=== PATIENT | female | born 1945 | race Caucasian/White ===

== ENCOUNTER → 2019-06-12 15:14 | Outpatient (CLI) | payer MEDICARE, OTHER, SELFPAY ==
--- NOTE | 2019-06-12 15:23 | RAD_ITS ---
STUDY: X-RAY CHEST REASON FOR EXAM: Female, 73 years old. ASTHMA, COUGH TECHNIQUE: PA and lateral views of the chest. COMPARISON: None. FINDINGS: The lungs are clear and expanded. There is no demonstrated pleural abnormality. Normal size heart. Normal mediastinum and rojas. Normal visualized pulmonary arteries. There is atherosclerotic calcification of the aortic arch with tortuosity. Normal visualized thoracic spine. Normal visualized ribs, clavicles, and shoulders. There is no demonstrated abnormality of the visualized soft tissue structures of the upper abdomen. RAD/Chest PA and Lateral IMPRESSION: No acute cardiopulmonary disease. Electronically Signed: Helene Wilcox MD at 2:12 EST , Service support ,
[2019-06-12 17:32] LABS: Erythrocyte Sedimentation Rate 29 mm/hr (0-30)
== END ==
PROVIDERS: Family Provider Student in an Organized Health Care Education/Training Program; PCP Student in an Organized Health Care Education/Training Program; Referring Provider Internal Medicine Pulmonary Disease; Visit Provider Internal Medicine Pulmonary Disease
DX: J45.909 Unspecified asthma, uncomplicated (principal)
CPT/HCPCS: 36415; 71046; 85652

== ENCOUNTER 2020-08-30 09:14 | Outpatient (RCR) | payer MEDICARE, OTHER, SELFPAY ==
[2020-08-30] MEDS: COVID-19 VACC, MRNA(PFIZER)/PF 30 MCG/0.3 ML SYRINGE IM (16:24)
[2020-09-20] MEDS: COVID-19 VACC, MRNA(PFIZER)/PF 30 MCG/0.3 ML SYRINGE IM (16:02)
== END 2020-11-29 23:59 ==
LOC: IMMUN 09:14
PROVIDERS: PCP Student in an Organized Health Care Education/Training Program; Referring Provider Family Medicine; Visit Provider Family Medicine
DX: Z23 Encounter for immunization (principal)
CPT/HCPCS: 0001A; 0002A; 91300

== ENCOUNTER 2021-06-21 14:09 | Emergency (ER) | payer MEDICARE, OTHER, SELFPAY ==
[2021-06-21 14:10] VITALS: BP 130/93; PULSE 73; RESP 18; TEMP 35.9; O2SAT 96; BMI 26.5
--- NOTE | 2021-06-21 16:22 | VDLE_ITS ---
Reason For Study: Pain Procedure LEFT This is a venous duplex using B-mode, color GSV is normal. flow and spectral Doppler. CFV is compressible, spontaneous, phasic, Exam performed portable in ED. competent, and demonstrates normal A preliminary report was called and/or faxed augmentation. to [facility]. FV is compressible, spontaneous, phasic, competent and demonstrates normal augmentation. POP V is compressible, spontaneous, phasic, competent and demonstrates normal augmentation. T/P Trunk is compressible. PTV is compressible. LT PerV is compressible. VL/Venous Duplex US, Unilateral Interpretation Summary There is no evidence of left lower extremity deep vein thrombosis. Left great s aphenous vein appears patent and compressible segmentally. Ordering Physician: David Toribio Referring Physician: Ollie Colin Performed By: Nneka Martino RVT
--- NOTE | 2021-06-21 16:44 | ED.VIS.LOWEX ---
HPI History of Present Illness HPI Narrative: Patient presents with pain in her left lower leg that has been getting worse over the past 2 days. Patient states she is concerned that there could be a blood clot in her leg. Patient denies any trauma or injury. Patient does admit to some increased swelling in her left lower leg. Patient states her pain is sharp at times. Patient denies any radiation of the pain. Patient denies any paresthesias or weakness. Chief Complaint: Lower Extremity Injury Informant: patient Onset/Context/Timing Onset: Days (2) Context: Gradual Onset Timing: Continuous Quality of Pain: Sharp Location: Left anterior proximal lower leg Worsened by: Palpation Relieved by: Nothing Associated Symptoms Associated Symptoms: Negative for Parasthesia, Weakness and Loss of Funtion PFSH PFSH Medical History Asthma Depression Former smoker Hyperlipemia Hypertension Kidney stones Home Medications Lactobacillus acidophilus [Acidophilus] 2 cap PO TID 06/21/21 [History Last Taken Unknown] amlodipine 5 mg PO DAILY 06/21/21 [History Last Taken Unknown] azelastine 137 mcg INTRANASAL BID 06/21/21 [History Last Taken Unknown] bupropion HCl 150 mg PO DAILY 06/21/21 [History Last Taken Unknown] fenofibrate 160 mg PO DAILY 06/21/21 [History Last Taken Unknown] hydroxychloroquine 300 mg PO DAILY 06/21/21 [History Last Taken Unknown] metoprolol succinate 25 mg PO DAILY 06/21/21 [History Last Taken Unknown] omeprazole 40 mg PO DAILY 06/21/21 [History Last Taken Unknown] prednisone 5 mg PO DAILY 06/21/21 [History Last Taken Unknown] Allergy/AdvReac Type Severity Reaction Status Date / Time No Known Allergies Allergy Verified 06/21/21 14:13 Surgical History H/O bilateral hip replacements Social History Smoking Status: Former smoker ROS ROS ED Constitutional Constitutional ED: Denies chills or fever(s) Eyes Eyes: Denies blurry vision or change in vision ENT ENT ED: Denies rhinorrhea or sore throat Cardiovascular Cardiovascular: Denies chest pain or palpitations Respiratory/Chest Respiratory/Chest: Denies cough or dyspnea Gastrointestinal Gastrointestinal: Denies nausea or vomiting Genitourinary Genitourinary ED: Denies dysuria or hematuria Musculoskeletal Musculoskeletal: Denies back pain or neck pain Integumentary Denies abscess or rash Neurologic Neurologic: Denies headache(s) or weakness Allergic/Immunologic Allergic/Immunologic ED: Denies mouth swelling or urticaria EXAM Physical Exam Const Vital Signs: 06/21/21 14:10 Temperature 96.7 F L Temperature Source Temporal Pulse Rate 73 Respiratory Rate 18 Blood Pressure 130/93 H Blood Pressure Mean 105 Pulse Ox 96 Oxygen Delivery Method Room Air Positive well nourished and well developed General Appearance ED: well developed HEENT Reports moist mucous membranes Neck full ROM Extremity Extremity Narrative: There is tenderness over the anterior aspect of the left proximal lower leg. There is some mild edema. There is no ecchymosis. There is no erythema. There is no warmth. There is minimal calf tenderness. There is no pain with dorsiflexion of the left ankle. There is no bony crepitance or step-off. There is good range of motion. Pedal pulses are equal bilateral. Capillary refill was less than 2 seconds in all digits. Sensation was intact to light touch in all digits. Neuro CN's II-XII intact bilaterally, moves all extremities and no sensory deficits noted Sensorium / Orientation: alert Motor Exam: strength 5/5 throughout Psych mental status grossly normal MDM MDM MDM Narrative Medical decision making narrative: Venous duplex of the left lower extremity was obtained and was negative. Patient was advised of her findings. Patient was instructed to ice and elevate her left lower leg. Patient was instructed to follow-up with her primary care physician in 5 to 7 days. Patient was instructed to take Tylenol or ibuprofen as needed for pain. Patient understands and is agreeable with the plan. All questions were answered. Discharge Plan Triage Chief Complaint: Lower Extremity Injury ED Provider: David Toribio Dx/Rx/DC Orders Clinical Impression: Left leg pain Instructions: ED Pain, Acute, Uncertain Cause Prescriptions: No Action prednisone 10 mg tablet 5 mg PO DAILY RF: 0 amlodipine 5 mg tablet 5 mg PO DAILY RF: 0 omeprazole 40 mg capsule,delayed release(DR/EC) 40 mg PO DAILY RF: 0 metoprolol succinate 25 mg tablet extended release 24 hr 25 mg PO DAILY RF: 0 azelastine 137 mcg (0.1 %) aerosol,spray 137 mcg INTRANASAL BID RF: 0 hydroxychloroquine 200 mg tablet 300 mg PO DAILY RF: 0 Acidophilus Capsule 2 cap PO TID RF: 0 bupropion HCl 150 mg tablet extended release 24 hr 150 mg PO DAILY RF: 0 fenofibrate 160 mg tablet 160 mg PO DAILY RF: 0 Primary Care Provider: Ollie Colin Referrals: lOlie Colin DO [Primary Care Provider] - 5-7 Days Disposition Disposition: Home, Self Care
[2021-06-21 17:27] VITALS: BP 131/74; PULSE 82; RESP 15; O2SAT 98
== END 2021-06-21 17:28 | disposition home or self-care (01) ==
LOC: ED 17:16
PROVIDERS: Emergency Provider Emergency Medicine; PCP Student in an Organized Health Care Education/Training Program
DX: M79.662 Pain in left lower leg (principal); M79.89 Other specified soft tissue disorders; I10 Essential (primary) hypertension; E78.5 Hyperlipidemia, unspecified; J45.909 Unspecified asthma, uncomplicated; F32.A Depression, unspecified; Z79.52 Long term (current) use of systemic steroids; Z79.899 Other long term (current) drug therapy; Z87.891 Personal history of nicotine dependence
CPT/HCPCS: 93971; 99282

== ENCOUNTER → 2021-12-13 | Outpatient (CLI) | payer MEDICARE, OTHER, SELFPAY ==
[2021-12-13] MEDS: Methacholine Chloride 18 ml neb kit INHALATION (13:09)
--- NOTE | 2021-12-14 05:21 | BRONCHALL ---
Bronchoprovocation Challenge Bronchoprovocation Challenge Bronchoprovocation Challenge: BRONCHOPROVOCATION STUDY INTERPRETATION Brief HPI: Patient is a 76 year old female, currently under the care of Dr. Guillaume, who presents to [facility] for a bronchoprovocation study secondary to diagnosis of chronic cough. Respiratory therapist reports good effort and reproducible results. Interpretation: Initial spirometry showed no large airways obstructive ventilatory defect. The patient was then given increasingly concentrated doses of methacholine in a stepwise/standardized fashion, using a modified ATS protocol. The patient?s maximum reduction in FEV1 was 16 percent predicted. Impression: Negative Bronchoprovocation study. This is NOT consistent with the diagnosis of asthma.
== END | disposition home or self-care (01) ==
PROVIDERS: PCP Student in an Organized Health Care Education/Training Program
DX: R05.3 Chronic cough (principal)
CPT/HCPCS: 94070; 95070

== ENCOUNTER 2021-12-24 20:21 | Emergency (ER) | payer MEDICARE, OTHER, SELFPAY ==
[2021-12-24 20:21] VITALS: BP 143/75; PULSE 69; RESP 16; TEMP 36.2; O2SAT 98; BMI 24.4
--- NOTE | 2021-12-24 20:45 | EDS_ITS ---
HPI HPI - Fall History of Present Illness Chief Complaint: Fall Narrative Narrative: Patient was at a wedding. She caught her left great toe on an uneven surface causing her to trip and fall. She landed on outstretched hand. She has a little bit of pain in the right hand near the small finger. She has some abrasions on the toes and shins. She also hit her face/nose. She does not think she lost consciousness. If she did it was for a very brief time. But she does feel somewhat dizzy. No headache. She has had nosebleed that was on the right but has stopped it still oozing a little on the left but getting better. No back or neck pain. No numbness tingling. No trouble breathing. She is not on any anticoagulation including no aspirin. [facility] Medical History Asthma Depression Former smoker Hyperlipemia Hypertension Kidney stones Home Medications Lactobacillus acidophilus (Acidophilus) 2 cap PO TID 06/21/21 [History Last Taken Unknown] amlodipine 5 mg tablet 5 mg PO DAILY 06/21/21 [History Last Taken Unknown] azelastine 137 mcg (0.1 %) nasal spray aerosol 137 mcg intranasal BID 06/21/21 [History Last Taken Unknown] bupropion HCl 150 mg 24 hr tablet, extended release (Wellbutrin XL) 150 mg PO DAILY 06/21/21 [History Last Taken Unknown] fenofibrate 160 mg tablet 160 mg PO DAILY 06/21/21 [History Last Taken Unknown] hydroxychloroquine 200 mg tablet (Plaquenil) 300 mg PO DAILY 06/21/21 [History Last Taken Unknown] metoprolol succinate 25 mg tablet,extended release 24 hr 25 mg PO DAILY 06/21/21 [History Last Taken Unknown] omeprazole 40 mg capsule,delayed release 40 mg PO DAILY 06/21/21 [History Last Taken Unknown] prednisone 10 mg tablet 5 mg PO DAILY 06/21/21 [History Last Taken Unknown] Allergy/AdvReac Type Severity Reaction Status Date / Time No Known Allergies Allergy Verified 12/24/21 20:21 Surgical History H/O bilateral hip replacements Social History Smoking Status: Former smoker ROS ROS ED Constitutional Constitutional ED: Denies fever(s) Eyes Eyes: Denies change in vision ENT ENT ED: Reports other Details: Epistaxis and nasal injury see history of present illness. Cardiovascular Cardiovascular: Denies chest pain, palpitations or racing heartbeat Respiratory/Chest Respiratory/Chest: Denies cough or dyspnea Gastrointestinal Gastrointestinal: Denies nausea or vomiting Musculoskeletal Musculoskeletal: Reports other Details: Right hand pain. ; Denies back pain or neck pain Integumentary Reports Abrasions Neurologic Neurologic: Denies headache(s), paresthesias or weakness Psychiatric Psychiatric: Reports depression Allergic/Immunologic Allergic/Immunologic ED: Denies urticaria EXAM Physical Exam Const Vital Signs: 12/24/21 20:21 12/24/21 20:32 Temperature 97.1 F L Temperature Source Temporal Pulse Rate 69 Respiratory Rate 16 Respiratory Effort Normal Non-Labored Respiratory Depth Normal Respiratory Pattern Normal Blood Pressure 143/75 H Blood Pressure Mean 97 Pulse Ox 98 Oxygen Delivery Method Room Air Room Air Positive well nourished and well developed Constitutional Narrative: Patient awake and alert. General Appearance ED: well developed and NAD HEENT HEENT Narrative: Patient has contusion and abrasion to the bridge of the nose. There may be some very subtle deformity or this could be from swelling. Dried blood in the right nare. Tissue in the left currently. No active bleeding. No facial or scalp tenderness. Eyes EOMs intact bilaterally Neck full ROM Neck Narrative: No tenderness or pain with motion. Chest Wall inspection of chest normal and palpation of chest normal Resp normal respiratory effort and clear to auscultation bilaterally Resp Narrative: No pain with deep breath Cardio regular rate and regular rhythm GI non-tender and non-distended Back/Spine no CVA tenderness Cervical Spine: Negative for cervical spine tenderness Thoracic Spine / Upper Back: Negative for thoracic spinal tenderness Lumbar Spine / Lower Back: Negative for lumbar spinal tenderness Neuro oriented x3 Psych mental status grossly normal Skin Skin Narrative: Multiple abrasions foot, shins medial aspect of right hand. Slight abrasion to bridge of nose. No laceration seen. MDM MDM MDM Narrative Medical decision making narrative: CT of the patient's head and face are normal.'s x-ray of the hand is normal. I have rechecked her. Nose is stopped bleeding. There is no septal hematoma. There are some abrasions around the lips. Her teeth meet normally. No new changes. Her left great toe has the nail that is really lifted off the base. It is still attached mid and anteriorly but it is really torn from the matrix area. However, I would prefer not to remove this. This will come off on its own. We will wrap this and get her home. We discussed if she develops new symptoms pain or anything different she should return. Radiography Diagnostic Testing: Clinical Impression(s) from Imaging Studies Brain CT 12/24/21 20:53 IMPRESSION: Normal unenhanced CT scan of the brain. Electronically Signed: Justus Shultz DO at 21:31 EDT Reading Location ID and State: [facility] [employer] Tel [phone], Service support , Facial/Sinus 12/24/21 20:53 IMPRESSION: No evidence of facial bone fracture. Electronically Signed: Justus Shultz DO at 21:32 EDT Reading Location ID and State: [facility] [employer] Tel [phone], Service support , Hand X-Ray 12/24/21 20:55 IMPRESSION: Degenerative changes of the hand and wrist. There is no acute fracture or dislocation. Electronically Signed: Justus Shultz DO at 21:33 EDT Reading Location ID and State: [facility] [employer] Tel [phone], Service support , Discharge Plan Triage Chief Complaint: Fall ED Provider: Raheem Salguero Dx/Rx/DC Orders Clinical Impression: Fall from slip, trip, or stumble, Epistaxis due to trauma, Contusion of nose, Contusion of hand, right, Abrasions of multiple sites Instructions: ED Head Injury (Adult) Prescriptions: No Action prednisone 10 mg tablet 5 mg PO DAILY amlodipine 5 mg tablet 5 mg PO DAILY omeprazole 40 mg capsule,delayed release(DR/EC) 40 mg PO DAILY metoprolol succinate 25 mg tablet extended release 24 hr 25 mg PO DAILY azelastine 137 mcg (0.1 %) aerosol,spray 137 mcg INTRANASAL BID hydroxychloroquine [Plaquenil] 200 mg tablet 300 mg PO DAILY Acidophilus Capsule 2 cap PO TID bupropion HCl [Wellbutrin XL] 150 mg tablet extended release 24 hr 150 mg PO DAILY fenofibrate 160 mg tablet 160 mg PO DAILY Primary Care Provider: Ollie Colin Referrals: Ollie Colin DO [Primary Care Provider] - 3-5 Days Disposition Disposition: Home, Self Care
--- NOTE | 2021-12-24 20:53 | CT_ITS ---
STUDY: CT FACIAL BONES WITHOUT CONTRAST REASON FOR EXAM: Female, 76 years old. Trauma. RADIATION DOSAGE (If Supplied By Facility): CTDIvol = ( 25.01 ) mGy, DLP = ( 542.40 ) mGycm TECHNIQUE: The patient was scanned in a multi detector CT scanner. Sagittal and coronal images were reconstructed. Individualized dose optimization techniques were used for this CT. COMPARISON: CT of the head, 12/24/2021 FINDINGS: Minimal soft tissue swelling over the bridge of nose. Normal orbital sanchez and orbital contents. Normal nasal bones and anterior nasal spine. Normal facial bones. There is no demonstrated fracture. Normal visualized paranasal sinuses. CT/Sinus/Facial Bone IMPRESSION: No evidence of facial bone fracture. Electronically Signed: Justus Shultz DO at 21:32 EDT ,
--- NOTE | 2021-12-24 20:53 | CT_ITS ---
STUDY: CT BRAIN WITHOUT CONTRAST REASON FOR EXAM: Female, 76 years old. Trauma. RADIATION DOSAGE (If Supplied By Facility): CTDIvol = ( 47.06 ) mGy, DLP = ( 872.68 ) mGycm TECHNIQUE: Transaxial CT imaging of the brain was performed without administration of intravenous contrast material. Individualized dose optimization techniques were used for this CT. COMPARISON: FINDINGS: Normal soft tissue structures. Normal calvarium. Normal size ventricles and extra-axial spaces for the patient''s age. Normal white matter tracts of the cerebral hemispheres. Normal basal ganglia and thalami. Normal brainstem. Normal cerebellum. There is no intracranial hemorrhage. There are no findings of an acute ischemic infarction. Normal visualized paranasal sinuses. CT/Brain/Head without Contrast IMPRESSION: Normal unenhanced CT scan of the brain. Electronically Signed: Justus Shultz DO at 21:31 EDT ,
--- NOTE | 2021-12-24 20:55 | RAD_ITS ---
STUDY: X-RAY - RIGHT HAND REASON FOR EXAM: Female, 76 years old. Fall. Pain in the region of the fourth and fifth fingers. TECHNIQUE: 3 view(s) of the hand. COMPARISON: None. FINDINGS: There is joint space narrowing of the radiocarpal articulation consistent with degenerative arthrosis. Normal distal radioulnar joint. Normal visualized carpal bones. There is degenerative joint disease of the scaphotrapezium / trapezoid articulation. The remainder of the carpal articulations are normal. There is degenerative arthrosis of the carpometacarpal (CMC) articulation of the thumb. Normal second through fifth carpometacarpal joints. Normal metacarpi. Normal metacarpophalangeal joint of the thumb. There is degenerative arthrosis of the interphalangeal joint of the thumb with articular joint space narrowing. Normal proximal and distal phalanges of the thumb. Normal metacarpophalangeal joints of the second through fifth fingers. There is diffuse articular joint space narrowing of the proximal and distal interphalangeal joints of the second through fifth fingers, but without erosive changes or periarticular soft tissue swelling. Normal phalanges of the second through fifth fingers. The soft tissue structures are unremarkable. RAD/Hand Min 3 Views IMPRESSION: Degenerative changes of the hand and wrist. There is no acute fracture or dislocation. Electronically Signed: Justus Shultz DO at 21:33 EDT Reading Location ID and State: [facility] Tel [phone], Service support ,
[2021-12-24 22:26] VITALS: BP 142/68; PULSE 69; RESP 18
== END 2021-12-24 22:27 | disposition home or self-care (01) ==
PROVIDERS: Emergency Provider Emergency Medicine; PCP Student in an Organized Health Care Education/Training Program; Visit Provider Emergency Medicine
DX: S00.33XA Contusion of nose, initial encounter (principal); R04.0 Epistaxis; S00.511A Abrasion of lip, initial encounter; S91.202A Unspecified open wound of left great toe with damage to nail, initial encounter; S60.221A Contusion of right hand, initial encounter; S80.812A Abrasion, left lower leg, initial encounter; S80.811A Abrasion, right lower leg, initial encounter; W18.09XA Striking against other object with subsequent fall, initial encounter; I10 Essential (primary) hypertension; E78.5 Hyperlipidemia, unspecified; Z87.891 Personal history of nicotine dependence; Z96.643 Presence of artificial hip joint, bilateral
CPT/HCPCS: 70450; 70486; 73130; 99282

== ENCOUNTER 2022-03-30 12:30 | Outpatient (RCR) | payer MEDICARE, OTHER, SELFPAY ==
--- NOTE | 2022-03-02 15:20 | HP.PTEVAL_ITS ---
Patient's Visit Information LIYA BRITT is a 76 year old F referred to Physical Therapy by LUCIAN Mendez with a diagnosis of spondylosis, stenosis lumbosacral area,. Date of Evaluation: 03/02/22 Physical Therapist: David Palmer, LAURIET, OCS, CSCS - Visit Plan Frequency: 3x /Week Duration: 4-6 Weeks Plan: 3x/week for 4-6... Ensure knowledge of NS position in daily activities. Start withrollout and stretch quad and psoas and proress to HEP. start mat based core strength adn proress to I HEP focussing on NS position. work to gym b ased general ex program with NS emphasis and progress to I with list(pt is already a member but does not know what to do) - Subjective My back hurts. Not sure why. has OA and RA. Been on prednisone for 3 rounds in last 3 months since RA diagnosis. it helps hands but not back. Back has hurt for a couple years. has tried injections that did not work, meds did not work as she is on acetominophen but just help get her through the day. Wants to be back playing tennis and pickleball. Avoiding these because she will hurt. Pain is across LB. No leg symptoms or pain or numbness or tingling. Legs weak as she has been less active. No regular exercises. Did PT a year ago at [facility] and was not faithful. Did not help. Does some ROM exercises to keep back moving. Takes an hour in am to get loose. Sleep is OK. Lost two years ago and things have been able. Livs alone in one story house with basement and one step to enter. Getting up and down them I carefully. . Works around house a little bit and attitude is poor with depression. B WINNIE history many years ago - Pain BP Pain Intensity (Out of 10): 3 Pain Intensity Range: 0, 7 Comment: with ambulation 3/10, 7/10 with vaccuming. - Objective Walks I with short steps and slightly hunched over back to PT I. Trasnfers I chair and I bed but hesitant and painful in supine. Balance is fair to good. No LOB. LB AROM ext is max limited and painful, flexion feels better. SB is mod limited. LE AROM joints WFL, quad and psoas B max tight and unable to lie with legs flat due to back pain. reflexes 2/3 patella and achilles. Sensation LE WNL to gross light touch. Strength 3+/5 in LE hips and ankles and 4- in knees. core strength is 3/5. able to do pelvic til ant and posterior but anterior h urts. - SLR. - Slump test. - Balance/Special Test Scores Oswestry Low Back Score: 18 - Goals Goal 1:: Pt pain 0-2/10 at all times and 75% improved Goal Time Frame: 4-6 Weeks Goal 2:: patient able to walk and stand for 30 minutes without increased pain Goal Time Frame: 4-6 Weeks Goal 3:: oswestry score 5 or less Goal Time Frame: 4-6 Weeks Goal 4:: Plan to return to [employer] Goal Time Frame: 4-6 Weeks Goal 5:: I approp ym adn HEP to limit future problems Goal Time Frame: 4-6 Weeks - Rehabilitation Potential Physical Therapy Diagnosis: degenerative changes in LB creatin pain in WB stance and limitin activity Rehabilitation Potential: Fair - Anticipated Interventions Patient/Client Instruction: Educate patient on: Condition, Plan of Care For the Purpose of:: To decrease pain, To increase ROM, To improve muscle performance and motor function, To improve ability of physical actions for home/community/work/leisure Therapeutic Exercise to Include: Strength training, Flexibilty training, Passive ROM, Active ROM, Dynamic Lumbar Stabilization For the Purpose of:: To decrease pain, To increase ROM, To improve muscle performance and motor function, To improve ability to perform ADL's, To improve ability of physical actions for home/community/work/leisure, To improve gait and locomotor functions Manual Therapy Techniques to Include: Mobilization, Passive ROM, Soft tissue mobilization For the Purpose of:: To decrease pain, To increase ROM Thermo therapy (hot pack): Yes For the Purpose of:: To increase ROM Thank you for the opportunity to evaluate your patient. For Medicare and Medicare HMO plans, please review the plan of care and approve it. It will need to be FAXED BACK to us at [phone] for Medicare purposes. For Medicare only, by signing this I certify the plan of care. Please let me know if there are questions or concerns regarding this plan of care. Physician Signature: Date:
--- NOTE | 2022-03-30 13:12 | HP.PTDCSUM_ITS ---
It has been my pleasure to treat LIYA BRITT referred by KAUSHAL Mendez, with the diagnosis of spondylosis, stenosis lumbosacral area for a total of 12 visit(s). Discharge Date: 03/30/22 Please see the following information for a summary of their discharge status. Subjective: Got me up and out of the house. Back is not quite as bad as it used to be. Pain 5-7/10 and still worse with standing and walking. Steps make her worse. Sleeping well. Will continue as a member. To pain doctor next week and not sure what is next step. Has not seen spine doctor. BP Pain Intensity (Out of 10): 5 neck Pain Intensity (Out of 10): 8 % Improvement: 25 Objective/Function: Pt seems frustrated with her neck and LBP pain. She has limited extension and it hurts to attempt to bend BW, Fw bending is good but slow and labored. SB are OK. Walks in standing up tall are slow and painful. Sighs with frstration/depression often. Pt not improving quickly. Goal 1:: Pt pain 0-2/10 at all times and 75% improved Goal Progress: 25% Goal 2:: patient able to walk and stand for 30 minutes without increased pain Goal Progress: Not Progressing Goal 3:: oswestry score 5 or less Goal Progress: Not Progressing Goal 4:: Plan to return to pickle ball Goal Progress: Not Progressing Goal 5:: I approp ym adn HEP to limit future problems Goal Progress: Goal Met Plan: Pt to see doctor next week and wants to discuss other options. She feels like she can continue the strenghtening in our gym as member and NS focus although I question if she will comply. She is to attempt that 3x/week and see if doctor has other options. If no other quality options exist, pool therapy should be considered although she does not wish to consider that today. D/C If there are questions or concerns regarding this patient's physical therapy, please feel free to call me at [phone]. Thank you for the referral of this patient. Sincerely, David Palmer, DPT, OCS, CSCS Balance/Gait/Functional tests - Balance/Special Test Scores Oswestry Low Back Score: 19
== END 2022-03-30 19:00 | disposition home or self-care (01) ==
LOC: PT 12:30
PROVIDERS: PCP Student in an Organized Health Care Education/Training Program; Referring Provider Nurse Practitioner Family; Visit Provider Nurse Practitioner Family
DX: M51.37 Other intervertebral disc degeneration, lumbosacral region (principal); M47.817 Spondylosis without myelopathy or radiculopathy, lumbosacral region; M48.07 Spinal stenosis, lumbosacral region; M54.17 Radiculopathy, lumbosacral region; M46.96 Unspecified inflammatory spondylopathy, lumbar region
CPT/HCPCS: 97110; 97140; 97162; 97164

== ENCOUNTER 2022-05-28 13:00 | Outpatient (RCR) | payer MEDICARE, OTHER, SELFPAY ==
--- NOTE | 2022-05-01 11:38 | HP.OTEVAL ---
Patient's Visit Information LIYA BRITT is a 76 year old F, referred to Occupational Therapy by Dr. Juan Carlos Braun MD, with a diagnosis of RA bilateral hands. Date of Evaluation: 04/30/22 Occupational Therapist: Deann Rose, LINSEYR/[place], CHT - Subjective This 76 year old female was seen for OT eval with dx of RA- pt states she also has OA. pt states confirmed RA in bilateral hands pt just tapering down her prednisone and down to one pill for 6 days - pt states she does notice a big difference in her pain- pt states right hand hand is worse than than left- pt points to most pain at base of her right thumb (CMCJ region) pt states pain limits her IND. with daily tasks and leisure activities. - ADLs Kitchen: Open jars, Open bottle caps, Lift gallon of milk Miscellaneous: Start car, Open medication bottle Comments: pt states she lives alone. pt does have cleaning Assist and yard work help from hired company. pt states prednisone and Tylenol helps with her pain-. pt does read the paper -is on ipad but it is on her lap-. pt states she struggles wit daily tasks due to pain and weakness - Pain bilateral hand 5 Pain Intensity Range: 8 - ROM ROM Comments: pt demo with bilateral shoulder signs of CMCJ. all other ROM is WFL - Strength Offline Editor: right 5# left 25# Lateral Pinch: right unable left 4# Tripod Pinch: right unable left 2# Strength Comments: pt demo weakness of right greater than left but both demo weakness - Sensation Sensation Comments: pt states tingling/numbness in RF and MF test normal sensation - Quick DASH-Disab of Arm,Shoulder& Hand Quick DASH Score: 57.5000 - Goals Goal:: pt will demo a increase in right curriculum and assessment director strength by 10# to increase pts ind. with ADLs and IADls by d/c Goal:: Pt will report pain no greater than 2/10 with use of affected hand with BADLs and IADLs by d/c. Goal:: Pt will demo understanding of joint protection and ergonomics when performing BADLs and IADLs by d/c. Pt will demo understanding of adaptive Equipment use to decrease stress on joints to allow pt to perform BADSL and IADLS at TRUDY level. Goal:: Pt will demo understanding of using supportive bracing 80% of work day/ADLS to decrease stress on tendon origin to allow give support and decrease stress on joints by end of 2nd session. - Rehabilitation General Assessment: Pt demo with bilateral Joint deformities, pain and weakness limited pts ind. with ADls and IADls. pt would benefit from skilled OT services 1-2x week for 4 weeks. Today therapist ed. pt on joint protection jamee. use of bracing with heavy work to avoid over stress to joints. pt demo understanding and agree to POC. Rehabilitation Potential: Good - Anticipated Interventions A/AAROM/PROM, Strengthening, Triggerpoint Release, Modalities, Orthoses, Joint Protection/Energy Conservation, Ergonomic Education, Fine Motor Coord/Maninder, Education re assistive Equipment, Education re Diagnosis, Caregiver Training, Home Program - Visit Plan Frequency: 1-2x /Week Duration: 4 Weeks General Plan: ed. on joint protection. ed. on supportive bracing. thumb stabilization ex. TEXT: Thank you for the opportunity to evaluate your patient. For Medicare and Medicare HMO plans, please review the plan of care and approve it. It will need to be FAXED BACK to us at [phone] for Medicare purposes. Please let me know if there are questions or concerns regarding this plan of care. Physician Signature: Date:
--- NOTE | 2022-05-28 13:23 | HP.OTDCSUM_ITS ---
It has been my pleasure to treat LIYA BRITT under orders from Dr. Juan Carlos Braun MD, for the diagnosis of RA bilateral hands for a total of 7 visit(s). Please see the following information for a summary of their discharge status. 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 pt unable to get relief with conservative methods of joint protection-. use of modalities ( of Ultra sound and paraffin pain decreases to 7/10) Patient Goals: Regain Strength, Decrease Pain, Use Hand/Wrist/Arm Normally Again, Be More Independent in ADLS Goal:: pt will demo a increase in right geothermal operations manager strength by 10# to increase pts ind. with ADLs and IADls by d/c Goal:: Pt will report pain no greater than 2/10 with use of affected hand with BADLs and IADLs by d/c. Goal:: Pt will demo understanding of joint protection and ergonomics when performing BADLs and IADLs by d/c. Pt will demo understanding of adaptive Equipment use to decrease stress on joints to allow pt to perform BADSL and IADLS at TRUDY level. Goal:: Pt will demo understanding of using supportive bracing 80% of work day/ADLS to decrease stress on tendon origin to allow give support and decrease stress on joints by end of 2nd session. Plan: pt to return to or contact family for possible consultation with ortho. for x-ray and further assessment. for OA RA and CMC arthritis If there are questions or concerns regarding this patient's occupational therapy, please fell free to call me at [phone]. Thank you for the referral of this patient. Sincerely, Deann Rose, OTR/L, CHT
== END 2022-05-28 13:30 | disposition home or self-care (01) ==
LOC: OT 13:00
PROVIDERS: PCP Student in an Organized Health Care Education/Training Program; Referring Provider Internal Medicine Rheumatology; Visit Provider Internal Medicine Rheumatology
DX: M05.9 Rheumatoid arthritis with rheumatoid factor, unspecified (principal); G56.01 Carpal tunnel syndrome, right upper limb
CPT/HCPCS: 97035; 97140; 97166; 97168; 97530

== ENCOUNTER → 2022-10-18 | Outpatient (CLI) | payer MEDICARE, OTHER, SELFPAY ==
--- NOTE | 2022-10-18 12:41 | MRI_ITS ---
INDICATION: DEGEN INTERVERTEBRAL DISC, LOW BACK PAIN EXAMINATION: MRI - MR Spine Lumbar W/O Contrast TECHNIQUE: Multiplanar and multisequence MR images of the lumbar spine. IV Contrast Dosage and Agent: None. COMPARISON: None. FINDINGS: VERTEBRAE: Vertebral body heights are preserved. Normal vertebral bodies and posterior elements. VERTEBRAL ALIGNMENT: No spondylolisthesis. There is preservation of the normal lumbar lordosis. CORD: Normal position and signal intensity of the conus medullaris. L1/L2, L2/L3: Decreased disc height and moderate circumferential disc bulge. Degenerative changes of the bilateral facet joints. Mild narrowing of the central canal and bilateral intervertebral neural foramina. L3/L4: 7 mm spondylolisthesis. Congenitally short pedicles. Decreased disc height and large circumferential disc bulge. Degenerative changes of the bilateral facet joints. Severe narrowing of the central canal and moderate narrowing of the bilateral intervertebral neural foramina. L4/L5: Congenitally short pedicles. Decreased disc height and lower circumferential disc bulge. Degenerative changes of the bilateral facet joints. Severe narrowing of the central canal and bilateral intervertebral neural foramina. L5/S1: Decreased disc height and small circumferential disc bulge. Degenerative changes of the bilateral facet joints. Mild narrowing of the central canal and severe narrowing of the bilateral intervertebral neural foramina. SOFT TISSUES: Unremarkable. 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 Electronically Signed: Cara Diaz MD at 6:53 EDT ,
== END | disposition home or self-care (01) ==
LOC: MRI 12:32
PROVIDERS: PCP Student in an Organized Health Care Education/Training Program; Referring Provider Nurse Practitioner Acute Care; Visit Provider Nurse Practitioner Acute Care
DX: M51.37 Other intervertebral disc degeneration, lumbosacral region (principal)
CPT/HCPCS: 72148

== ENCOUNTER 2022-11-19 07:21 | Emergency (ER) | payer MEDICARE, OTHER, SELFPAY ==
[2022-11-19 07:23] VITALS: BP 144/85; PULSE 78; RESP 16; TEMP 36.2; O2SAT 97; BMI 21.9
[2022-11-19 07:43] LABS: Absolute Lymphocyte Count 1.25 X10^3/uL (0.83-4.51); Absolute Neutrophil Count 3.7 X10^3/uL (2.0-7.7); Basophil# 0.04 X10^3/uL; Basophil% 0.6 % (0-1); Eosinophil# 0.17 X10^3/uL; Eosinophils% 2.6 % (0-5); Hemoglobin 14.8 g/dL (12.0-15.0); Lymphocyte # 1.25 X10^3/ul (0.83-4.51); Lymphocyte % 18.8 % (19-41); Mean Corp Hgb Conc 34.4 g/dL (32-36); Mean Corpuscular Hgb 36.5 pg (27.0-32.0); Mean Corpuscular Volume 106.2 fL (81-99); Mean Platelet Vol. 10.5 fl (6.2-12.0); Monocyte# 1.45 X10^3/uL; Monocyte% 21.8 % (0-10); NRBC Flagged by Analyzer 0 % (0-5); Neutrophil # 3.72 X10^3/uL (2.7-7.7); Neutrophil % 55.7 % (47-70); Platelet Count 224 K/mm3 (150-450); RBC Distribution Width SD 50.8 fl (35.1-43.9); Red Blood Count 4.05 M/mm3 (4.2-5.4); White Blood Count 6.7 K/mm3 (4.4-11.0)
[2022-11-19] MEDS: Morphine 2 MG/ML Syringe IV (07:46)
[2022-11-19 07:59] LABS: Anion Gap 10 (5-15); BUN 12 mg/dL (7-18); BUN/Creat Ratio 24.4 RATIO (10-20); Chloride 106 mmol/L (98-107); Creatinine, Serum 0.49 mg/dL (0.55-1.02); EST Glomerular Filtration Rate 130 mL/min (>60); Est Glom Filt Rate - Afr Amer 158 mL/min (>60); Estimated Creatinine Clearance 40.21 ml/min; Glucose 89 mg/dL (74-106); Potassium 3.5 mmol/L (3.5-5.1); Sodium Level 138 mmol/L (136-145)
--- NOTE | 2022-11-19 08:18 | EDS_ITS ---
HPI History of Present Illness Chief Complaint: Weakness Detail of Chief Complaint: Orthostatic symptoms, generalized arthralgias Informant: patient Onset/Context/Timing Onset: Days Context: Gradual Onset Timing: Continuous Quality: Pain Location: Multiple joints Current Severity: Moderate Maximum Severity: Severe Worsened by: Movement Relieved by: Nothing Associated Symptoms Associated Symptoms: Lightheadedness Narrative Narrative: Patient is a 77-year-old woman with history of hypertension, GERD, rheumatoid arthritis who is presently on Plaquenil and prednisone. Once family arrived they informed the nurse that she has not taken her Humira because of procedure. She denies fever, chills night sweats. She denies headache. She denies double vision, blurred vision loss of vision. She does endorse dry mouth and thirst. She denies trouble with speech or swallowing. She denies paresthesia, anesthesia or motor weakness upper or lower extremity. She states she is dizzy. When asked to define dizziness she states she feels as if she cannot fall over. She does not describe vertigo. She denies problems with coordination or balance. She is not on an anticoagulant. She was unaware that she had a wound on her left forearm. There is a Band-Aid. She then replied her cat scratched her. This occurred greater than 24 hours ago. Patient denies chest pain, orthopnea or PND. Patient endorses shortness of breath. She had shortness of breath for several years. She denies history of PE or DVT. She denies leg pain, swelling or discoloration. She denies history of trauma. She denies abdominal pain, black stool, maroon stool. She denies nausea, vomiting or diarrhea. Dysuria, frequency, urgency or hematuria. Prior similar symptoms: Yes Recent Illness/Hospitalization: No [facility] Medical History Asthma Depression Former smoker Hyperlipemia Hypertension Kidney stones Home Medications Lactobacillus acidophilus (Acidophilus capsule) 2 cap PO TID 06/21/21 [History Last Taken Unknown] amlodipine 5 mg tablet 5 mg PO DAILY 06/21/21 [History Last Taken Unknown] azelastine 137 mcg (0.1 %) nasal spray aerosol 137 mcg intranasal BID 06/21/21 [History Last Taken Unknown] bupropion HCl 150 mg 24 hr tablet, extended release (Wellbutrin XL) 150 mg PO DAILY 06/21/21 [History Last Taken Unknown] fenofibrate 160 mg tablet 160 mg PO DAILY 06/21/21 [History Last Taken Unknown] hydroxychloroquine 200 mg tablet (Plaquenil) 300 mg PO DAILY 06/21/21 [History Last Taken Unknown] metoprolol succinate 25 mg tablet,extended release 24 hr 25 mg PO DAILY 06/21/21 [History Last Taken Unknown] omeprazole 40 mg capsule,delayed release 40 mg PO DAILY 06/21/21 [History Last Taken Unknown] prednisone 10 mg tablet 5 mg PO DAILY 06/21/21 [History Last Taken Unknown] hydrocodone-acetaminophen 5-325mg 5mg-325mg 1 tab PO Q6H PRN PRN Pain 3 days #10 TABLETS 11/19/22 [Rx Last Taken Unknown] prednisone 5 mg tablet 5 mg PO DAILY #30 tabs 11/19/22 [Rx Last Taken Unknown] Allergy/AdvReac Type Severity Reaction Status Date / Time No Known Allergies Allergy Verified 11/19/22 07:22 Surgical History H/O bilateral hip replacements Social History (Updated 11/19/22 @ 08:[address] Cedric Umaña MD) household members: none and other details: Cat Smoking Status: Former smoker substance use type: does not use ROS ROS ED Constitutional Constitutional ED: Denies chills, fever(s), subjective, sweats or weight loss Eyes Eyes: Denies blurry vision, change in vision or diplopia ENT ENT ED: Denies ear pain, rhinorrhea or sore throat Cardiovascular Cardiovascular: Denies chest pain, orthopnea, palpitations, paroxysmal nocturnal dyspnea or racing heartbeat Respiratory/Chest Respiratory/Chest: Reports dyspnea; Denies cough, dyspnea on exertion, orthopnea, paroxysmal nocturnal dyspnea or sputum Gastrointestinal Gastrointestinal: Denies abdominal pain, constipation, diarrhea, melena, nausea or vomiting Genitourinary Genitourinary ED: Denies dysuria, hematuria or urinary frequency Musculoskeletal Musculoskeletal: Reports arthralgias and myalgias; Denies back pain or neck pain Integumentary Denies abscess or rash Neurologic Neurologic: Reports weakness; Denies headache(s) or paresthesias Psychiatric Psychiatric: Reports depression Endocrine Endocrinology: Denies cold intolerance or heat intolerance Hematologic/Lymphatic Hematologic/Lymphatic: Reports systems reviewed and no addt'l complaints, except as documented Allergic/Immunologic Allergic/Immunologic ED: Denies mouth swelling or tongue swelling EXAM Physical Exam Const Vital Signs: 11/19/22 07:23 11/19/22 07:27 Temperature 97.1 F L Temperature Source Temporal Pulse Rate 78 Respiratory Rate 16 Respiratory Effort Normal Non-Labored Respiratory Pattern Normal Blood Pressure 144/85 H Blood Pressure Mean 104 Pulse Ox 97 Oxygen Delivery Method Room Air Positive well nourished and well developed Constitutional Narrative: Patient noted to have tears after first question asked to obtain history. General Appearance ED: well developed and NAD; Negative for cyanotic, diaphoretic or pallor HEENT Reports dry mucous membranes HEENT Narrative: Head is atraumatic normocephalic. Ears normal. Nares patent. Posterior pharynx is normal. There is no deviation tongue with protrusion. Mouth ED: Yes dry mucous membranes Mouth: dry mucous membranes Eyes PERRL and EOMs intact bilaterally General Eye ED: Negative for pale conjunctiva or scleral icterus Neck no lymphadenopathy, supple and no JVD Chest Wall inspection of chest normal and palpation of chest normal Resp normal respiratory effort and clear to auscultation bilaterally Cardio regular rate, regular rhythm, S1 normal heart sound, S2 normal heart sound and no murmurs GI normal to inspection, nondistended, normoactive bowel sounds, non-tender and non-distended; Negative for hepatosplenomegaly or no masses GI Narrative: There is no palpable pulsatile mass. There is no bruit. Back/Spine no CVA tenderness Extremity Negative for normal to inspection Extremity Narrative: Patient has deformity of multiple joints consider with rheumatoid arthritis upper and lower extremity. Neuro oriented x3, CN's II-XII intact bilaterally and no sensory deficits noted Neuro Narrative: There is no dysmetria. There is no clonus or Babinski sign. Sensorium / Orientation: alert Motor Exam: strength 5/5 throughout Psych Mood & Affect: depressed and tearful Skin Skin Narrative: Patient has numerous superficial wounds secondary to her cat scratching her. These are not infected General Skin Exam: Negative for elasticity normal, jaundice or pallor MDM MDM MDM Narrative Medical decision making narrative: Patient with very vague symptoms. I was informed by nurse that patient refused to perform orthostatic vitals. CBC was obtained assess H&H and white count. BMP to assess renal function, glucose and electrolytes. In light of information from family regarding discontinuation of Humira suspect her aches are due to the Humira being held. Patient was medicated with 2 mg of morphine for her pain. Will reassess. Lab Data Labs: Laboratory Results - last 24 hr 11/19/22 11/19/22 07:35 07:35 WBC 6.7 RBC 4.05 L Hgb 14.8 Hct 43.0 MCV 106.2 H MCH 36.5 H MCHC 34.4 RDW Std Deviation 50.8 H RDW Coeff of Karen 13.0 Plt Count 224 MPV 10.5 Immature Gran % (Auto) 0.500 Neut % (Auto) 55.7 Lymph % (Auto) 18.8 L [place] % (Auto) 21.8 H Eos % (Auto) 2.6 Baso % (Auto) 0.6 Absolute Neuts (auto) 3.7 Absolute Lymphs (auto) 1.25 Nucleated RBC % 0 Sodium 138 Potassium 3.5 Chloride 106 Carbon Dioxide 22.0 Anion Gap 10 BUN 12 Creatinine 0.49 L Estim Creat Clear Calc 40.21 Est GFR (MDRD) Af Amer 158 Est GFR (MDRD) Non-Af 130 BUN/Creatinine Ratio 24.4 H Glucose 89 Calcium 9.0 Treatment and Re-Evaluation :: Patient was informed of her laboratory results. Patient had slight improvement after 2 mg of morphine. Family member that is present states the Humira was held and she has had the dental procedure. She apparently has been off her prednisone as well. In light of this will E prescribe prescription for prednisone as well as short course of opiate analgesia. She did receive a burst of prednisone in the emergency department. Discharge Plan Triage Chief Complaint: Weakness ED Provider: Cedric Umaña Dx/Rx/DC Orders Clinical Impression: Flare of rheumatoid arthritis, Polyarthralgia, Orthostatic dizziness, Long-term use of Plaquenil Instructions: ED Rheumatoid Arthritis Prescriptions: New hydrocodone-acetaminophen [hydrocodone-acetaminophen] 5-325 mg tablet 1 tab PO Q6H PRN PRN (Reason: Pain) 3 Days Qty: 10 0RF prednisone 5 mg tablet 5 mg PO DAILY Qty: 30 0RF No Action prednisone 10 mg tablet 5 mg PO DAILY amlodipine 5 mg tablet 5 mg PO DAILY omeprazole 40 mg capsule,delayed release(DR/EC) 40 mg PO DAILY metoprolol succinate 25 mg tablet extended release 24 hr 25 mg PO DAILY azelastine 137 mcg (0.1 %) aerosol,spray 137 mcg INTRANASAL BID hydroxychloroquine [Plaquenil] 200 mg tablet 300 mg PO DAILY Acidophilus Capsule 2 cap PO TID bupropion HCl [Wellbutrin XL] 150 mg tablet extended release 24 hr 150 mg PO DAILY fenofibrate 160 mg tablet 160 mg PO DAILY Primary Care Provider: Ollie Colin Referrals: Ollie Colin, [Primary Care Provider] - As Needed Disposition Disposition: Home, Self Care
[2022-11-19 09:21] VITALS: RESP 18
[2022-11-19] MEDS: predniSONE 20 MG Tablet 40 MG PO (09:28)
== END 2022-11-19 10:04 | disposition home or self-care (01) ==
PROVIDERS: Emergency Provider Emergency Medicine; PCP Student in an Organized Health Care Education/Training Program; Visit Provider Emergency Medicine
DX: M06.9 Rheumatoid arthritis, unspecified (principal); R42 Dizziness and giddiness; Z87.891 Personal history of nicotine dependence; S51.802A Unspecified open wound of left forearm, initial encounter; I10 Essential (primary) hypertension; R06.02 Shortness of breath; E78.5 Hyperlipidemia, unspecified; Z79.52 Long term (current) use of systemic steroids; Z79.899 Other long term (current) drug therapy; W55.03XA Scratched by cat, initial encounter
CPT/HCPCS: 80048; 85025; 96374; 99285; A4216

== ENCOUNTER 2022-12-22 11:05 | Inpatient (IN) | payer MEDICARE, OTHER, SELFPAY ==
[2022-12-22] VITALS (9 sets, daily range): BP systolic 86–105; BP diastolic 57–66; PULSE 78–100; RESP 16–19; TEMP 36.6–37.8; O2SAT 94–97; BMI 21.3
--- NOTE | 2022-12-22 11:24 | RAD_ITS ---
INDICATION: cough EXAMINATION/TECHNIQUE: X-RAY - XR Chest 1 View COMPARISON: Prior study dated: June 12, 2019 FINDINGS: LINES/DEVICES: None. LUNGS: There are bibasilar streaky opacities. No pneumothorax. MEDIASTINUM AND CARDIOVASCULAR STRUCTURES: Cardiac silhouette not enlarged. Central airways and mediastinal contour are unremarkable. BONES AND SOFT TISSUES: Unremarkable. RAD/Chest 1 View (Portable) IMPRESSION: Bibasilar atelectasis. Electronically Signed: Dannielle Carver MD at 12:57 EDT ,
--- NOTE | 2022-12-22 11:24 | EKG12_ITS ---
Test Reason : general Blood Pressure : / mmHG Vent. Rate : 084 BPM Atrial Rate : 084 BPM P-R Int : 168 ms QRS Dur : 104 ms QT Int : 412 ms P-R-T Axes : 024 -11 044 degrees QTc Int : 486 ms Normal sinus rhythm Normal ECG Confirmed by VERÓNICA OLSON, ADE ([id number]), food editor HINA CORDERO ([id number]) on 12/24/2022 12:35:37 PM Referred By: Confirmed By:ADE SANCHES MD
--- NOTE | 2022-12-22 11:25 | RAD_ITS ---
INDICATION: foot pain EXAMINATION/TECHNIQUE: X-RAY - RIGHT XR Foot Min 3 Views 3 VIEWS COMPARISON: No relevant prior comparison study available FINDINGS: SOFT TISSUES: No soft tissue swelling or gas. No radiopaque foreign body. BONES/JOINTS: No acute fracture or subluxation.. Normal alignment. There are degenerative changes throughout the foot. No sclerotic or destructive changes observed. RAD/Foot min 3 Views IMPRESSION: Degenerative changes. Electronically Signed: Dannielle Carver MD at 12:56 EDT ,
--- NOTE | 2022-12-22 11:26 | EDS_ITS ---
HPI <LUCIAN Ray - Last Filed: 12/22/22 14:55> History of Present Illness Chief Complaint: General Illness Narrative Narrative: Patient is a 77-year-old female with history of rheumatoid arthritis on Humira, hypertension hyperlipidemia who presents to the emergency department for altered mental status, weakness. Speaking with the patient's son-in-law, the month of November has been difficult for the patient, she has decreased immensely. Over the last several days, the patient has been more weak, more altered, having some visual hallucinations. Patient is febrile here. Patient does have some pain and redness to the right foot this is been ongoing for 3 to 4 days. She states that her urine is extremely dark, she is not eating and drinking normally. They do have home health care ready for Saturday however patient is unable to care for self at home at this time. PFS <LUCIAN Ray - Last Filed: 12/22/22 14:55> [facility]LY [facility] Medical History (Updated 12/22/22 @ 16:16 by Destiny Ruth) Asthma Depression Former smoker Hyperlipemia Hypertension Kidney stones Rheumatoid arthritis Vitreous floaters of left eye Home Medications Lactobacillus acidophilus (Acidophilus capsule) 2 cap PO TID 06/21/21 [History Last Taken 12/22/22] amlodipine 5 mg tablet 5 mg PO DAILY 06/21/21 [History Last Taken 12/22/22] azelastine 137 mcg (0.1 %) nasal spray aerosol 137 mcg intranasal BID 06/21/21 [History Last Taken 12/22/22] bupropion HCl 150 mg 24 hr tablet, extended release (Wellbutrin XL) 150 mg PO DAILY 06/21/21 [History Last Taken 12/22/22] hydroxychloroquine 200 mg tablet (Plaquenil) 300 mg PO DAILY 06/21/21 [History Last Taken 12/22/22] metoprolol succinate 25 mg tablet,extended release 24 hr 25 mg PO DAILY 06/21/21 [History Last Taken 12/22/22] omeprazole 40 mg capsule,delayed release 40 mg PO DAILY 06/21/21 [History Last Taken 12/22/22] acetaminophen 500 mg tablet 1,000 - 1,500 mg PO Q6H PRN fever or pain 12/22/22 [History Last Taken 12/22/22] adalimumab 40 mg/0.4 mL subcutaneous pen kit (Humira(CF) Pen) 40 mg subcut Q14D 12/22/22 [History Last Taken 12/19/22] albuterol sulfate 90 mcg/actuation aerosol inhaler (Ventolin HFA) 1 - 2 puff inhalation Q4H PRN shortness of breath or wheezing 12/22/22 [History Last Taken 12/21/22] fenofibrate nanocrystallized 145 mg tablet 145 mg PO DAILY 12/22/22 [History Last Taken 12/22/22] meloxicam 15 mg tablet 15 mg PO DAILY 12/22/22 [History Last Taken 12/22/22] Allergy/AdvReac Type Severity Reaction Status Date / Time prednisone AdvReac Intermediate HALLUCINATI Verified 12/22/22 11:23 ONS Surgical History H/O bilateral hip replacements Social History (Updated 11/19/22 @ 08:[address] Cedric Umaña MD) household members: none and other details: Cat Smoking Status: Former smoker substance use type: does not use ROS <LUCIAN Ray - Last Filed: 12/22/22 14:55> ROS ED ROS Narrative Constitutional: Negative for weight loss. Positive fever chills weight loss Eyes: Negative for vision loss, vision change, double vision ENT: Negative for any sore throat, ear pain, congestion Cardiovascular: Negative for any chest pain, tightness, palpitations Respiratory: Negative for any sputum production, hemoptysis, dyspnea, dyspnea on exertion, orthopnea. Positive for cough Gastrointestinal: Negative for any abdominal pain, nausea, vomiting, diarrhea, constipation, blood in stool, blood in vomit : Negative for any urinary frequency, dysuria, retention, blood in urine. Positive or dark urine Muscle skeletal: Negative for any muscle joint pain, stiffness, arthralgias, neck pain, back pain. Positive for myalgias Neurological: Negative for any headache, syncope, numbness or tingling, dizziness Skin: Negative for any rashes, lumps, itching, abrasions, lacerations Psychiatric: Negative for any depression, anxiety, stress, suicidal ideation, homicidal ideation Hematologic: Negative for any easy bruising, excessive bruising, easy bleeding Allergies: Negative for any eczema, hives, rash EXAM <Elver HuiLUCIAN young - Last Filed: 12/22/22 14:55> Physical Exam Narrative Exam Narrative: Vital signs reviewed. Patient is alert and oriented x4. Patient is febrile here, heart rate 100. Pat ient is somnolent however is arousable to verbal stimuli, answers all questions appropriately HEET: Head normocephalic atraumatic, TMs clear bilaterally. Posterior pharynx is unremarkable, dry mucous membranes. Neck: Supple with no lymphadenopathy or tenderness. No signs of meningismus, negative jolt sign. Cardiac: Regular rate and rhythm no murmurs gallops or rubs, equal peripheral pulses bilaterally. Respiratory: Lungs clear to auscultation bilaterally. No chest tenderness. Abdomen: Soft, nontender, nondistended. No abdominal bruit or pulsatile masses. No hepatosplenomegaly Extremities: Patient has swelling to the right foot, there is redness there consistent for cellulitis. +2 pedal pulse. No swelling that is going up to the calf, no wound noted. Active full range of motion of all extremities. Neuro: Cranial nerves II through XII intact, no focal neurological deficits. Skin: Clean dry and intact with no rash, purpura, petechiae, vesicles or pustules. Backs/flank: No CVA tenderness, no midline spinal tenderness, no deformity. Psych: Normal mood and affect. No SI, HI or acute psychosis. Const Vital Signs: 12/22/22 11:06 12/22/22 11:08 12/22/22 11:12 Temperature 98.4 F 98.4 F Temperature Source Temporal Temporal Pulse Rate 100 100 Respiratory Rate 16 16 Respiratory Pattern Normal Blood Pressure 105/66 105/66 Blood Pressure Mean 79 79 Pulse Ox 95 95 Oxygen Delivery Method Room Air Room Air 12/22/22 11:20 12/22/22 11:29 12/22/22 12:30 Temperature 100.1 F H 98.4 F Temperature Source Oral Oral Pulse Rate 79 Respiratory Rate 19 H Respiratory Pattern Blood Pressure 102/62 Blood Pressure Mean 75 Pulse Ox 95 94 Oxygen Delivery Method Room Air Room Air 12/22/22 12:30 12/22/22 14:39 12/22/22 14:39 Temperature 97.9 F Temperature Source Oral Pulse Rate 79 78 78 Respiratory Rate 19 H 16 18 Respiratory Pattern Blood Pressure 102/62 86/57 L 86/57 L Blood Pressure Mean 75 66 66 Pulse Ox 95 94 94 Oxygen Delivery Method Room Air Room Air Room Air <Dr. Caleb Leigh DO - Last Filed: 12/22/22 16:19> Physical Exam Const Vital Signs: 12/22/22 11:06 12/22/22 11:08 12/22/22 11:12 Temperature 98.4 F 98.4 F Temperature Source Temporal Temporal Pulse Rate 100 100 Respiratory Rate 16 16 Respiratory Pattern Normal Blood Pressure 105/66 105/66 Blood Pressure Mean 79 79 Pulse Ox 95 95 Oxygen Delivery Method Room Air Room Air 12/22/22 11:20 12/22/22 11:29 12/22/22 12:30 Temperature 100.1 F H 98.4 F Temperature Source Oral Oral Pulse Rate 79 Respiratory Rate 19 H Respiratory Pattern Blood Pressure 102/62 Blood Pressure Mean 75 Pulse Ox 95 94 Oxygen Delivery Method Room Air Room Air 12/22/22 12:30 12/22/22 14:39 12/22/22 14:39 Temperature 97.9 F Temperature Source Oral Pulse Rate 79 78 78 Respiratory Rate 19 H 16 18 Respiratory Pattern Blood Pressure 102/62 86/57 L 86/57 L Blood Pressure Mean 75 66 66 Pulse Ox 95 94 94 Oxygen Delivery Method Room Air Room Air Room Air MDM <LUCIAN Ray - Last Filed: 12/22/22 14:55> [facility] Lab Data Labs: Laboratory Results - last 24 hr 12/22/22 12/22/22 11:40 13:15 WBC 13.8 H RBC 3.49 L Hgb 13.0 Hct 36.7 L MCV 105.2 H MCH 37.2 H MCHC 35.4 RDW Std Deviation 50.4 H RDW Coeff of Karen 13.2 Plt Count 223 MPV 10.1 Immature Gran % (Auto) 2.000 H Neut % (Auto) 74.4 H Lymph % (Auto) 7.4 L [place] % (Auto) 15.0 H Eos % (Auto) 0.8 Baso % (Auto) 0.4 Absolute Neuts (auto) 10.3 H Absolute Lymphs (auto) 1.03 Nucleated RBC % 0 Differential Comment SCANNED Diff Path Review October PT 17.2 H INR 1.4 APTT 39.7 H Sodium 128 L Potassium 3.4 L Chloride 97 L Carbon Dioxide 22.0 Anion Gap 9 BUN 12 Creatinine 0.55 Estim Creat Clear Calc 40.21 Est GFR (MDRD) Af Amer 139 Est GFR (MDRD) Non-Af 115 BUN/Creatinine Ratio 21.9 H Glucose 81 Lactic Acid 1.8 Calcium 8.8 Total Bilirubin 2.10 H AST 59 H ALT 25 Alkaline Phosphatase 168 H Total Creatine Kinase 58 Total Protein 6.9 Albumin 2.0 L Globulin 4.9 H Albumin/Globulin Ratio 0.4 L Urine Color Yellow Urine Clarity Clear Urine pH 6.5 Ur Specific [place] 1.010 Urine Protein 30 H Urine Glucose (UA) Normal Urine Ketones Negative Urine Occult Blood 150 H Urine Nitrite Negative Urine Bilirubin Negative Urine Urobilinogen 4 H Ur Leukocyte Esterase 500 H Urine RBC 0 SEEN Urine WBC 10-25 SEEN Ur Squamous Epith Cells 0 SEEN Urine Bacteria 1+ Urine Mucus 0 SEEN Radiography Diagnostic Testing: Clinical Impression(s) from Imaging Studies Chest X-Ray 12/22/22 11:24 IMPRESSION: Bibasilar atelectasis. Electronically Signed: Dannielle Carver MD at 12:57 EDT , Foot X-Ray 12/22/22 11:25 IMPRESSION: Degenerative changes. Electronically Signed: Dannielle Carver MD at 12:56 EDT , EKG Normal sinus rhythm: Attestation: I personally reviewed and interpreted this EKG as follows: Interpretation: Sinus Rhythm Comments: Normal sinus rhythm, rate 84 bpm, [place] 168 ms, QRS duration 94 ms, no acute ST elevation, no acute infarct noted Treatment and Re-Evaluation :: Patient is febrile here, patient appears somnolent however is arousable to verbal stimuli, patient is acting appropriate. Patient presents to the emergency department for weakness, difficulty caring for self at home. Secondary to the patient's fever, cellulitis to the right foot, patient will receive a septic work-up, patient is also on Humira which could come by her immune system. 2 sets of blood cultures will be drawn, chest x-ray, x-ray of the right foot IV fluids, Tylenol. Patient has family at bedside. All radiologic examinations were read, reviewed by the emergency department attending. From these reads, a plan of care will be put in place. Patient's laboratory values showed a leukocytosis white blood count of 13.8, PT/INR slightly elevated with a PT of 17.2, APTT 39.7. Patient's sodium was slightly low at 128, patient is usually in the 130s. Total bilirubin is 2.1, AST is 59.0. Alkaline phosphatase still elevated 168. Patient's total CK was unremarkable. Creatinine was normal. Patient did receive 1 L normal saline. Patient is negative for any flu or COVID-19. EKG was unremarkable. There is no evidence of any ACS, OR. Patient's urinalysis shows leukocyte Estrace of 500 white blood cells 10-25, 1+ bacteria, this is positive for infection and urine culture will be sent. 2 sets of blood cultures sent, patient most likely suffering from cellulitis to the right foot as well as UTI. Patient started on Unasyn, vancomycin. Patient's chest x-ray was grossly unremarkable, foot x-ray showed no acute osteomyelitis. At this time, patient is stable however secondary to the patient's weakness, multiple falls, fever and chills with leukocytosis, I do believe the patient will be admitted to the hospital. Hospitalist will except the patient. Patient stable. <Dr. Caleb Leigh, DO - Last Filed: 12/22/22 16:19> [facility] Narrative Medical decision making narrative: I have personally performed a face to face assessment of the patient and have reviewed the CHRISTIANO Note. I performed a substantive portion of the visit including all aspects of the following. My ryan findings include: History is [patient presents to the emergency department with complaint of general decline. Patient with increased weakness over the last 3 days and increased confusion. She had an outpatient CAT scan of her brain because of the confusion that was normal recently for the last 3 days. Patient 3 days ago was found on the ground in the morning as she had fallen apparently during the night. Patient was too weak to get up. She had a chronic cough. Patient son states her urine has been very dark. Patient denies any chest pain or abdominal pain. Patient has a swollen right foot that is erythematous. Family tells me patient had a general decline over the last year and is lost about 60 pounds in the last year.] Exam is [HEENT-PERRLA, EOMI. Cranial nerves II through XII grossly intact. TMs clear. Mucous membranes moist. No adenopathy. Cardiovascular-regular rate and rhythm without murmur or ectopy Lungs-clear to auscultation, chest wall stable without crepitus or subcu emphysema Abdomen-normoactive bowel sounds, soft, nontender, no rebound or rigidity, no peritoneal signs. Extremities-intact ?4. Right foot-patient has soft tissue swelling and diffuse erythema. Cellulitic changes noted.] Medical Decison Making [patient presents with generalized decline with fever. Will obtain lab work-up as well as urine and chest x-ray to evaluate for infectious etiology. I suspect she likely has a cellulitis of her right foot. Patient will be empirically started on Unasyn and vancomycin IV.] Patient had an x-ray of the right foot that showed no fractures or lytic lesions. Chest x- ray was unremarkable. CBC with differential that showed an elevated white count of 13.8. Chemistries did show a low sodium of 128. Patient had slight LFT elevation. Lactate was normal. This point I suspect the fever likely related to the cellulitis. She did have few white cells in the urine and few bacteria therefore we did send the urine for culture. Case discussed with hospitalist to evaluate patient for admission. Other additions or changes: [None] Lab Data Attestation: I reviewed the patient's lab results. Labs: Laboratory Results - last 24 hr 12/22/22 12/22/22 11:40 13:15 WBC 13.8 H RBC 3.49 L Hgb 13.0 Hct 36.7 L MCV 105.2 H MCH 37.2 H MCHC 35.4 RDW Std Deviation 50.4 H RDW Coeff of Karen 13.2 Plt Count 223 MPV 10.1 Immature Gran % (Auto) 2.000 H Neut % (Auto) 74.4 H Lymph % (Auto) 7.4 L [place] % (Auto) 15.0 H Eos % (Auto) 0.8 Baso % (Auto) 0.4 Absolute Neuts (auto) 10.3 H Absolute Lymphs (auto) 1.03 Nucleated RBC % 0 Differential Comment SCANNED Diff Path Review May foll PT 17.2 H INR 1.4 APTT 39.7 H Sodium 128 L Potassium 3.4 L Chloride 97 L Carbon Dioxide 22.0 Anion Gap 9 BUN 12 Creatinine 0.55 Estim Creat Clear Calc 40.21 Est GFR (MDRD) Af Amer 139 Est GFR (MDRD) Non-Af 115 BUN/Creatinine Ratio 21.9 H Glucose 81 Lactic Acid 1.8 Calcium 8.8 Total Bilirubin 2.10 H AST 59 H ALT 25 Alkaline Phosphatase 168 H Total Creatine Kinase 58 Total Protein 6.9 Albumin 2.0 L Globulin 4.9 H Albumin/Globulin Ratio 0.4 L Urine Color Yellow Urine Clarity Clear Urine pH 6.5 Ur Specific [place] 1.010 Urine Protein 30 H Urine Glucose (UA) Normal Urine Ketones Negative Urine Occult Blood 150 H Urine Nitrite Negative Urine Bilirubin Negative Urine Urobilinogen 4 H Ur Leukocyte Esterase 500 H Urine RBC 0 SEEN Urine WBC 10-25 SEEN Ur Squamous Epith Cells 0 SEEN Urine Bacteria 1+ Urine Mucus 0 SEEN Radiography Diagnostic Testing: Clinical Impression(s) from Imaging Studies Chest X-Ray 12/22/22 11:24 IMPRESSION: Bibasilar atelectasis. Electronically Signed: Dannielle Carver MD at 12:57 EDT , Foot X-Ray 12/22/22 11:25 IMPRESSION: Degenerative changes. Electronically Signed: Dannielle Carver MD at 12:56 EDT , Three-view x-rays of the right foot obtained interpreted by myself as no acute fractures or lytic lesions. She was noted to have some soft tissue swelling. Radiology in agreement. 1 view chest x-ray obtained interpreted by myself as no evidence of infiltrate or acute disease process. Radiology was in agreement felt there was bibasilar atelectasis. EKG Initial EKG: Attestation: I personally reviewed and interpreted this EKG as follows: Comments: Normal sinus rhythm with a rate of 84 bpm with no acute ST elevation or depression. Discharge Plan Dx/Rx/DC Orders Clinical Impression: UTI (urinary tract infection), Cellulitis, Acute metabolic encephalopathy, Weakness, Acute hyponatremia Disposition Disposition: Acute Care Hospital [facility] Discharge Date/Time: 12/22/22 15:08
[2022-12-22] MEDS: 0.9% Normal Saline 1,000 ML 999 ML IV (11:45)
[2022-12-22 12:03] LABS: Absolute Lymphocyte Count 1.03 X10^3/uL (0.83-4.51); Absolute Neutrophil Count 10.3 X10^3/uL (2.0-7.7); Basophil# 0.05 X10^3/uL; Basophil% 0.4 % (0-1); Eosinophil# 0.11 X10^3/uL; Eosinophils% 0.8 % (0-5); Hematocrit 36.7 % (37-47); Lymphocyte # 1.03 X10^3/ul (0.83-4.51); Lymphocyte % 7.4 % (19-41); Mean Corp Hgb Conc 35.4 g/dL (32-36); Mean Corpuscular Hgb 37.2 pg (27.0-32.0); Mean Corpuscular Volume 105.2 fL (81-99); Mean Platelet Vol. 10.1 fl (6.2-12.0); Monocyte# 2.07 X10^3/uL; NRBC Flagged by Analyzer 0 % (0-5); Neutrophil # 10.31 X10^3/uL (2.7-7.7); Neutrophil % 74.4 % (47-70); POSITIVE DIFFERENTIAL YES; Platelet Count 223 K/mm3 (150-450); RBC Distribution Width CV 13.2 % (11.6-14.6); RBC Distribution Width SD 50.4 fl (35.1-43.9); Red Blood Count 3.49 M/mm3 (4.2-5.4); White Blood Count 13.8 K/mm3 (4.4-11.0)
[2022-12-22 12:06] LABS: International Normalized Ratio 1.4; Prothrombin Time (Protime)PT. 17.2 SECONDS (11.7-14.9)
[2022-12-22 12:07] LABS: Differential Indicated SCAN CRITERIA MET; Partial Thromboplast Time 39.7 Seconds (24.1-36.2)
[2022-12-22 12:16] LABS: ALB/GLOB Ratio 0.4 RATIO (0.9-2.4); AST(SGOT) 59 U/L (15-37); Alanine Aminotransfer ALT/SGPT 25 U/L (13-56); Alkaline Phosphatase 168 U/L (45-117); Anion Gap 9 (5-15); BUN 12 mg/dL (7-18); BUN/Creat Ratio 21.9 RATIO (10-20); Calcium,Total 8.8 mg/dL (8.5-10.1); Chloride 97 mmol/L (98-107); Creatinine, Serum 0.55 mg/dL (0.55-1.02); EST Glomerular Filtration Rate 115 mL/min (>60); Est Glom Filt Rate - Afr Amer 139 mL/min (>60); Estimated Creatinine Clearance 40.21 ml/min; Globulin 4.9 g/dL (2.2-4.2); Glucose 81 mg/dL (74-106); Lactic Acid 1.8 mmol/L (0.4-1.9); Potassium 3.4 mmol/L (3.5-5.1); Protein, Total 6.9 g/dL (6.4-8.2); Sodium Level 128 mmol/L (136-145)
[2022-12-22 12:18] LABS: CPK Total, Creatine Kinase 58 U/L (26-192)
[2022-12-22 12:27] LABS: Differential Comment SCANNED
[2022-12-22 13:23] LABS: Mucous, Urine 0 SEEN /hpf (<or=2+); Red Blood Cells-Urine 0 SEEN /hpf (0-5); Squamous Epithelial Cells - UA 0 SEEN /hpf (5-10)
--- NOTE | 2022-12-22 13:29 | ED.RN ---
NO TYLENOL GIVEN DUE TO PATIENT TAKING 1500MG OUTSIDE RIGGER AROUND 1030AM.
[2022-12-22 13:40] LABS: Color, Urine Yellow (Yellow); Glucose, Dipstick Normal (Normal); Ketone-Dipstick Negative (Negative); Leukocyte Esterase-Dipstick 500 /ul (Negative); Nitrite-Dipstick Negative (Negative); Occult Blood-Urine 150 /ul (Negative); Protein-Dipstick 30 mg/dl (Negative); Urine Bilirubin Dipstick Negative (Negative); Urine Clarity Clear (Clear); Urine Urobilinogen 4 mg/dl (Normal); Urine pH 6.5 (5.0 - 8.0)
[2022-12-22 13:54] LABS: Bacteria 1+ /hpf (None Seen); White Blood Cells 10-25 SEEN /hpf (0-5)
--- NOTE | 2022-12-22 14:13 | NURSING ---
DR RYAN KING
--- NOTE | 2022-12-22 14:22 | NURSING ---
MED SURG TERELETSKY WEAKNESS, CELLULITIS RIGHT
--- NOTE | 2022-12-22 17:21 | HP.PCM.HOS_ITS ---
HPI - General General Date of Admission: 12/22/22 Date of Service: 12/22/22 Chief Complaint: Generalized debility, right foot pain HPI Narrative LIYA BRITT, is a 77 F who presents to the emergency room at [facility] after being brought in by her family due to generalized debility that is worsened over the last several days. Patient has a long history of rheumatoid arthritis and she has been under treatment as an outpatient. Narrative was obtained from the patient's son who was present at the time my examination, son states that he came up from [place] to help take care of his mother due to increasing debility, she has not been able to get out of a chair without maximal help for the last few days. They had looked into some assisted living facilities over the past several weeks due to increasing debilit y. Patient's right foot is also been swollen and painful over the past 48 hours, patient denies any injury to the area. Patient's medical problems include rheumatoid arthritis, chronic depression, e ssential hypertension, and according to the patient she has a history of cirrhosis. 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 Patient has no history of any dementia or cognitive impairment. Work-up in the emergency room included labs which showed an elevated white blood cell count of 13.8, chemistry panel was abnormal for sodium of 128, potassium was 3.4, bilirubin was elevated at 2.1, AST was 59 and ALT was 168. Patient's urinalysis was abnormal with urine bloody GEN, urine occult blood, white blood cell count of 10-25, and +1 bacteria. X-ray of the right foot revealed no evidence of fracture, there was degenerative changes noted. Chest x-ray showed bibasilar atelectasis. Patient will be admitted to [place] [address] for cellulitis of the right foot, generalized debility, and acute cystitis. She was given antibiotics in the emergency room, I will maintain the patient on IV Rocephin for cellulitis and UTI, [facility] Medical History (Updated 12/22/22 @ 16:16 by Destiny Ruth) Asthma Depression Former smoker Hyperlipemia Hypertension Kidney stones Rheumatoid arthritis Vitreous floaters of left eye Home Medications Lactobacillus acidophilus (Acidophilus capsule) 2 cap PO TID 06/21/21 [History Last Taken 12/22/22] amlodipine 5 mg tablet 5 mg PO DAILY 06/21/21 [History Last Taken 12/22/22] azelastine 137 mcg (0.1 %) nasal spray aerosol 137 mcg intranasal BID 06/21/21 [History Last Taken 12/22/22] bupropion HCl 150 mg 24 hr tablet, extended release (Wellbutrin XL) 150 mg PO DAILY 06/21/21 [History Last Taken 12/22/22] hydroxychloroquine 200 mg tablet (Plaquenil) 300 mg PO DAILY 06/21/21 [History Last Taken 12/22/22] metoprolol succinate 25 mg tablet,extended release 24 hr 25 mg PO DAILY 06/21/21 [History Last Taken 12/22/22] omeprazole 40 mg capsule,delayed release 40 mg PO DAILY 06/21/21 [History Last Taken 12/22/22] acetaminophen 500 mg tablet 1,000 - 1,500 mg PO Q6H PRN fever or pain 12/22/22 [History Last Taken 12/22/22] adalimumab 40 mg/0.4 mL subcutaneous pen kit (Humira(CF) Pen) 40 mg subcut Q14D 12/22/22 [History Last Taken 12/19/22] albuterol sulfate 90 mcg/actuation aerosol inhaler (Ventolin HFA) 1 - 2 puff inhalation Q4H PRN shortness of breath or wheezing 12/22/22 [History Last Taken 12/21/22] fenofibrate nanocrystallized 145 mg tablet 145 mg PO DAILY 12/22/22 [History Last Taken 12/22/22] meloxicam 15 mg tablet 15 mg PO DAILY 12/22/22 [History Last Taken 12/22/22] Allergy/AdvReac Type Severity Reaction Status Date / Time prednisone AdvReac Intermediate HALLUCINATI Verified 12/22/22 11:23 ONS Surgical History H/O bilateral hip replacements Social History (Updated 11/19/22 @ 08:[address] Cedric Umaña MD) household members: none and other details: Cat Smoking Status: Former smoker substance use type: does not use ROS Constitutional Constitutional: Reports weakness; Denies anorexia, change in weight, chills, fatigue, fever(s) or night sweats Eyes Eyes: Denies blurry vision, change in vision, discharge from eye(s) or eye pain Cardiovascular Cardiovascular: Denies chest pain, claudication, edema or palpitations Respiratory/Chest Respiratory/Chest: Denies cough, excessive phlegm production, hemoptysis, productive cough, shortness of breath at rest or shortness of breath with exertion Gastrointestinal Gastrointestinal: Denies abdominal pain, coffee ground emesis, constipation, diarrhea, dyspepsia, hematemesis, hematochezia, melena, nausea or vomiting Genitourinary Genitourinary: Denies dysuria, hematuria, urinary frequency, urinary hesitancy, urinary incontinence or urinary urgency Musculoskeletal Musculoskeletal: Denies back pain, joint pain, joint stiffness, joint swelling, myalgias or neck pain Neurologic Neurologic: Reports confusion; Denies abnormal gait, abnormal speech, dizziness, focal weakness, headache(s), loss of vision, numbness, other visual disturb ances, paresthesias, syncope or tingling Psychiatric Psychiatric: Reports depression; Denies anxiety, cognitive impairment, irritability, mood swings or suicidal ideation Endocrine Endocrinology: Denies change in body appearance, cold intolerance, excessive sweating, heat intolerance, polydipsia or polyuria Hematologic/Lymphatic Hematologic/Lymphatic: Denies none, anemia, easy bleeding, easy bruising or lymphadenopathy Allergic/Immunologic Allergic/Immunologic: Denies rhinitis, urticaria, eczemia or asthma Vital Signs Vital Signs Vital Signs: 12/22/22 11:06 12/22/22 11:08 12/22/22 11:12 Temperature 98.4 F 98.4 F Temperature Source Temporal Temporal Pulse Rate 100 100 Respiratory Rate 16 16 Respiratory Pattern Normal Blood Pressure 105/66 105/66 Blood Pressure Mean 79 79 Blood Pressure Source Blood Pressure Position Blood Pressure Location Pulse Ox 95 95 Oxygen Delivery Method Room Air Room Air 12/22/22 11:20 12/22/22 11:29 12/22/22 12:30 Temperature 100.1 F H 98.4 F Temperature Source Oral Oral Pulse Rate 79 Respiratory Rate 19 H Respiratory Pattern Blood Pressure 102/62 Blood Pressure Mean 75 Blood Pressure Source Blood Pressure Position Blood Pressure Location Pulse Ox 95 94 Oxygen Delivery Method Room Air Room Air 12/22/22 12:30 12/22/22 14:39 12/22/22 14:39 Temperature 97.9 F Temperature Source Oral Pulse Rate 79 78 78 Respiratory Rate 19 H 16 18 Respiratory Pattern Blood Pressure 102/62 86/57 L 86/57 L Blood Pressure Mean 75 66 66 Blood Pressure Source Blood Pressure Position Blood Pressure Location Pulse Ox 95 94 94 Oxygen Delivery Method Room Air Room Air Room Air 12/22/22 15:23 Temperature 98.1 F Temperature Source Temporal Pulse Rate 79 Respiratory Rate 18 Respiratory Pattern Blood Pressure 99/57 L Blood Pressure Mean 71 Blood Pressure Source Monitor Blood Pressure Position Semi-Fowlers Blood Pressure Location Left Arm Pulse Ox 97 Oxygen Delivery Method Room Air Weight Weight: 53.4 kg Body Mass Index (BMI) 21.3 Physical Exam Const alert, oriented x3 and no apparent distress HEENT normocephalic, head/scalp atraumatic and hearing grossly normal bilaterally Eyes conjunctivae normal Neck supple, no JVD and no carotid bruits Resp normal respiratory effort, no retractions, no use of accessory muscles and clear to auscultation bilaterally Cardio regular rate, regular rhythm, S1 normal heart sound, S2 normal heart sound, no murmurs, no rub, no gallops and no clicks GI normal to inspection, nondistended, normoactive bowel sounds, soft to palpation, non-tender and non-distended Extremity Extremity Narrative: Patient has deformities of the interphalangeal joints of her hands and feet, right foot is swollen and warm to the touch, it is slightly reddened Neuro CN's II-XII intact bilaterally, moves all extremities and no focal motor deficit s Sensorium / Orientation: awake, alert, oriented to person and oriented to place Psych affect normal Results Lab / Micro Data 12/22/22 11:40 12/22/22 11:40 Labs: Laboratory Results - last 24 hr 12/22/22 11:40: WBC 13.8 H, RBC 3.49 L, Hgb 13.0, Hct 36.7 L, MCV 105.2 H, MCH 37.2 H, MCHC 35.4, RDW Std Deviation 50.4 H, RDW Coeff of Karen 13.2, Plt Count 223, MPV 10.1, Immature Gran % (Auto) 2.000 H, Neut % (Auto) 74.4 H, Lymph % (Auto) 7.4 L, [place] % (Auto) 15.0 H, Eos % (Auto) 0.8, Baso % (Auto) 0.4, Absolute Neuts (auto) 10.3 H, Absolute Lymphs (auto) 1.03, Nucleated RBC % 0, Differential Comment SCANNED, Diff Path Review October, PT 17.2 H, INR 1.4, APTT 39.7 H, Sodium 128 L, Potassium 3.4 L, Chloride 97 L, Carbon Dioxide 22.0, Anion Gap 9, BUN 12, Creatinine 0.55, Estim Creat Clear Calc 40.21, Est GFR (MDRD) Af Amer 139, Est GFR (MDRD) Non-Af 115, BUN/Creatinine Ratio 21.9 H, Glucose 81, Lactic Acid 1.8, Calcium 8.8, Total Bilirubin 2.10 H, AST 59 H, ALT 25, Alkaline Phosphatase 168 H, Total Creatine Kinase 58, Total Protein 6.9, Albumin 2.0 L, Globulin 4.9 H, Albumin/Globulin Ratio 0.4 L 12/22/22 13:15: Urine Color Yellow, Urine Clarity Clear, Urine pH 6.5, Ur Specific [place] 1.010, Urine Protein 30 H, Urine Glucose (UA) Normal, Urine Ketones Negative, Urine Occult Blood 150 H, Urine Nitrite Negative, Urine Bilirubin Negative, Urine Urobilinogen 4 H, Ur Leukocyte Esterase 500 H, Urine RBC 0 SEEN, Urine WBC 10-25 SEEN, Ur Squamous Epith Cells 0 SEEN, Urine Bacteria 1+, Urine Mucus 0 SEEN Micro: Microbiology 12/22/22 11:35 Nasal Secretion SARS-CoV-2 & FLU Antigen (Rapid) - Final Radiology Impression Chest X-Ray 12/22/22 11:24 IMPRESSION: Bibasilar atelectasis. Electronically Signed: Dannielle Carver MD at 12:57 EDT , Foot X-Ray 12/22/22 11:25 IMPRESSION: Degenerative changes. Electronically Signed: Dannielle Carver MD at 12:56 EDT , Assessment & Plan Assessment/Plan (1) Cellulitis: PLAN: Plan 1. Cellulitis of the right foot-again patient will be admitted to [facility], she will be placed on IV Rocephin, labs will be monitored #2 acute cystitis-again patient will be placed on IV Rocephin, labs will be monitored #3 generalized debility-secondary to chronic medical problems including rheumatoid arthritis, chronic depression, and cirrhosis-patient will be seen by PT and OT, it is likely she will need short-term placement in the nursing home facility #4 rheumatoid arthritis-patient is on outpatient Humira, she was taken off prednisone due to concerns of confusion with the medication but she has not had any prednisone for a month and the son states she still has episodes of confusion. Patient appears alert and appropriate male, I have elected to place her back on a small dose of dexamethasone for comfort due to her rheumatoid. #5 history of cirrhosis-according to the patient, she had imaging studies done at the [facility] which show she has cirrhosis, I will order a serum ammonia level on the patient #6 chronic depression-patient is on Wellbutrin Total clinical time spent by myself addressing the patient's medical issues, reviewing all of her data, and collaborating with patient's care team: 75 minutes Charges/Coding Visit Charges Inpatient E&M: 79520 Init Hosp L3
[2022-12-22] MEDS: KCL 20MEQ in 0.9% NS 20 MEQ/1,000 ML IV.SOLN. 125 MEQ IV (21:18)
[2022-12-22] MEDS: Ceftriaxone 1 GM/50 ML BAG IV (21:18)
[2022-12-22] MEDS: 0.9% Saline Lock 10 ML Syringe IV (21:26)
[2022-12-22] MEDS: Heparin Injection (Vial) 5,000 UNIT/ML VIAL 5000 UNIT SC (21:28)
[2022-12-22] MEDS: Pantoprazole Sodium 40 MG Tablet PO (21:28)
[2022-12-23] VITALS (9 sets, daily range): BP systolic 101–120; BP diastolic 52–70; PULSE 80–112; RESP 17–20; TEMP 36.8–37.7; O2SAT 93–99
--- NOTE | 2022-12-23 02:19 | PCM.HOSP.N ---
Hospitalist Note Patient with blood cultures with GPC, will add IV vanc pending culture finalization.
--- NOTE | 2022-12-23 04:39 | PCM.RX.CS ---
Consult Antibiotic Management Pharmacy has been consulted to manage selected antiobiotic: Vancomycin Type of Intervention Type of Consult: New start Suspected Infection Suspected Infection: Bacteremia Labs Labs: Sodium 128 mmol/L (136-145) L 12/22/22 11:40 Potassium 3.4 mmol/L (3.5-5.1) L 12/22/22 11:40 Chloride 97 mmol/L (98-107) L 12/22/22 11:40 Carbon Dioxide 22.0 mmol/L (21.0-32.0) 12/22/22 11:40 Anion Gap 9 (5-15) 12/22/22 11:40 BUN 12 mg/dL (7-18) 12/22/22 11:40 Creatinine 0.55 mg/dL (0.55-1.02) 12/22/22 11:40 Est GFR (MDRD) Af Amer 139 mL/min (>60) 12/22/22 11:40 Est GFR (MDRD) Non-Af 115 mL/min (>60) 12/22/22 11:40 BUN/Creatinine Ratio 21.9 RATIO (10-20) H 12/22/22 11:40 Glucose 81 mg/dL (74-106) 12/22/22 11:40 Microbiology Microbiology: Microbiology 12/22/22 11:40 Blood Culture (Wb) - Left Forearm Blood Culture - Preliminary 12/22/22 11:45 Blood Culture (Wb) - Left Hand Blood Culture - Preliminary 12/22/22 11:35 Nasal Secretion SARS-CoV-2 & FLU Antigen (Rapid) - Final Goal Trough Goal Trough: 15-20 mcg/mL Pharmacy Plan for Drug Dosing Pharmacy Plan for Drug Dosing: NEW START IV VANCOMYCIN Consulting Physician: Dr. Caro Indication: Bacteremia, GPC in blood Goal Trough: 15-20 SrCr: 0.55 CrCl: 40 mL/min Comments: Loading dose of 1250mg IV ordered and administered in ED 12/22/22 @1233 Vancomycin Dose: 1000mg IV Q24hr to start 12/23/22 @1200 Pending Level: 12/24/22 @1130, prior to 4th total dose per protocol Pharmacy Service will continue to monitor and adjust dosing as required.
[2022-12-23] MEDS: KCL 20MEQ in 0.9% NS 20 MEQ/1,000 ML IV.SOLN. 125 MEQ IV ×3 (04:49→21:28)
[2022-12-23 07:06] LABS: Absolute Lymphocyte Count 1.04 X10^3/uL (0.83-4.51); Absolute Neutrophil Count 9.6 X10^3/uL (2.0-7.7); Basophil# 0.03 X10^3/uL; Basophil% 0.2 % (0-1); Eosinophil# 0.04 X10^3/uL; Eosinophils% 0.3 % (0-5); Hematocrit 38.9 % (37-47); Lymphocyte # 1.04 X10^3/ul (0.83-4.51); Lymphocyte % 8.4 % (19-41); Mean Corp Hgb Conc 33.4 g/dL (32-36); Mean Corpuscular Hgb 36.4 pg (27.0-32.0); Mean Platelet Vol. 10.9 fl (6.2-12.0); Monocyte# 1.57 X10^3/uL; Monocyte% 12.7 % (0-10); NRBC Flagged by Analyzer 0 % (0-5); Neutrophil # 9.56 X10^3/uL (2.7-7.7); Neutrophil % 77.7 % (47-70); POSITIVE DIFFERENTIAL YES; Platelet Count 196 K/mm3 (150-450); RBC Distribution Width CV 13.3 % (11.6-14.6); RBC Distribution Width SD 54.4 fl (35.1-43.9); Red Blood Count 3.57 M/mm3 (4.2-5.4); White Blood Count 12.3 K/mm3 (4.4-11.0)
[2022-12-23 07:15] LABS: Differential Indicated SCAN CRITERIA MET
[2022-12-23 07:31] LABS: ALB/GLOB Ratio 0.4 RATIO (0.9-2.4); AST(SGOT) 81 U/L (15-37); Alanine Aminotransfer ALT/SGPT 28 U/L (13-56); Albumin, Serum 1.8 g/dL (3.2-5.0); Alkaline Phosphatase 177 U/L (45-117); Anion Gap 7 (5-15); BUN 10 mg/dL (7-18); Calcium,Total 8.1 mg/dL (8.5-10.1); Chloride 106 mmol/L (98-107); Creatinine, Serum 0.37 mg/dL (0.55-1.02); EST Glomerular Filtration Rate 181 mL/min (>60); Est Glom Filt Rate - Afr Amer 219 mL/min (>60); Estimated Creatinine Clearance 40.21 ml/min; Globulin 4.7 g/dL (2.2-4.2); Glucose 58 mg/dL (74-106); Potassium 3.7 mmol/L (3.5-5.1); Protein, Total 6.5 g/dL (6.4-8.2); Sodium Level 133 mmol/L (136-145)
[2022-12-23 08:55] LABS: Differential Comment SCANNED
[2022-12-23] MEDS: Hydroxychloroquine 200 MG Tablet 300 MG PO (10:04)
[2022-12-23] MEDS: buPROPion (XL) 150 MG TABLET.XL PO (10:04)
[2022-12-23] MEDS: Pantoprazole Sodium 40 MG Tablet PO (10:04)
[2022-12-23] MEDS: Meloxicam 15 MG Tablet PO (10:05)
[2022-12-23] MEDS: dexAMETHasone 4 MG Tablet PO ×2 (10:05→17:29)
[2022-12-23] MEDS: Heparin Injection (Vial) 5,000 UNIT/ML VIAL 5000 UNIT SC ×2 (10:05→21:29)
[2022-12-23] MEDS: Ceftriaxone 1 GM/50 ML BAG IV (10:13)
[2022-12-23] MEDS: Vancomycin IV 1,000 MG/200 ML BAG 200 MG IV (13:08)
[2022-12-23] MEDS: 0.9% Saline Lock 10 ML Syringe IV (13:10)
--- NOTE | 2022-12-23 14:52 | PN.HOSP_ITS ---
Reason for Visit Reason for Visit: Diagnoses Cellulitis, unspecified (12/22/22) Subjective Subjective Patient was seen and examined today, she is alert and answers most questions appropriately, she asks when a surgeon was going to be seeing her concerning her foot, I explained to her that a surgeon would not be seeing her for her cellulitis. Patient's PCR on her blood was positive for Staph aureus, patient was placed on vancomycin. I will have infectious diseases see the patient in consultation, I talked with Dr. Mcrae by phone. Objective Data Objective Data Vital Signs: Vital Signs Temp Pulse Resp BP Pulse Ox O2 Del Method 98.2 F 90 17 114/52 L 93 Room Air 12/23/22 10:12/23/22 10:12/23/22 10:12/23/22 10:12/23/22 10:12/23/22 10:20 Oxygen Delivery Method Room Air Weight: 53.4 kg Body Mass Index (BMI) 21.3 Intake & Output: Intake and Output for Last 24 Hours 12/21/22 12/22/22 12/23/22 23:59 23:59 23:59 Intake Total 1687 / 1687 2604.16 / 2604.16 Output Total 300 / 650 1100 / 1100 Balance 1387 / 1037 1504.16 / 1504.16 Lab / Micro Data 12/23/22 06:11 12/23/22 06:11 Labs: Laboratory Results - last 24 hr 12/22/22 21:10: Ammonia 30.0 12/23/22 06:11: WBC 12.3 H, RBC 3.57 L, Hgb 13.0, Hct 38.9, MCV 109.0 H, MCH 36.4 H, MCHC 33.4 D, RDW Std Deviation 54.4 H, RDW Coeff of Karen 13.3, Plt Count 196, MPV 10.9, Immature Gran % (Auto) 0.700, Neut % (Auto) 77.7 H, Lymph % (Auto) 8.4 L, [place] % (Auto) 12.7 H, Eos % (Auto) 0.3, Baso % (Auto) 0.2, Absolute Neuts (auto) 9.6 H, Absolute Lymphs (auto) 1.04, Nucleated RBC % 0, Differential Comment SCANNED, Diff Path Review October, Sodium 133 L, Potassium 3.7, Chloride 106, Carbon Dioxide 20.0 L, Anion Gap 7, BUN 10, Creatinine 0.37 L , Estim Creat Clear Calc 40.21, Est GFR (MDRD) Af Amer 219, Est GFR (MDRD) Non- Af 181, BUN/Creatinine Ratio 27.0 H, Glucose 58 L, Calcium 8.1 L, Total Bilirubin 2.00 H, AST 81 H, ALT 28, Alkaline Phosphatase 177 H, Total Protein 6.5, Albumin 1.8 L, Globulin 4.7 H, Albumin/Globulin Ratio 0.4 L Micro: Microbiology 12/22/22 11:40 Blood Culture (Wb) - Left Forearm Bacteria Detection (PCR) - Final Staphylococcus aureus 12/22/22 11:40 Blood Culture (Wb) - Left Forearm Blood Culture - Preliminary 12/22/22 11:45 Blood Culture (Wb) - Left Hand Blood Culture - Preliminary 12/22/22 13:15 Urine, Catheterized Urine Culture - Preliminary Staphylococcus species 12/22/22 11:35 Nasal Secretion SARS-CoV-2 & FLU Antigen (Rapid) - Final Physical Exam Narrative alert, oriented x3 and no apparent distress HEENT normocephalic, head/scalp atraumatic and hearing grossly normal bilaterally Eyes conjunctivae normal Neck supple, no JVD and no carotid bruits Resp normal respiratory effort, no retractions, no use of accessory muscles and clear to auscultation bilaterally Cardio regular rate, regular rhythm, S1 normal heart sound, S2 normal heart sound, no murmurs, no rub, no gallops and no clicks GI normal to inspection, nondistended, normoactive bowel sounds, soft to palpation, non-tender and non-distended Extremity Extremity Narrative: Patient has deformities of the interphalangeal joints of her hands and feet, right foot is swollen and warm to the touch, it is slightly reddened Neuro CN's II-XII intact bilaterally, moves all extremities and no focal motor deficits Sensorium / Orientation: awake, alert, oriented to person and oriented to place Psych affect normal Assessment & Plan Assessment/Plan (1) Cellulitis: PLAN: Plan 1. Cellulitis of the right foot-patient is now on vancomycin and Rocephin #2 acute cystitis with staph-patient is now on Rocephin and vancomycin #3 Staph bacteremia-patient is now on vancomycin and Rocephin, ID will be consulted #4 generalized debility-secondary to chronic medical problems including rheumatoid arthritis, chronic depression, and cirrhosis-patient will be seen by PT and OT, it is likely she will need [facility] #5 rheumatoid arthritis-patient is on outpatient Humira, she was taken off p rednisone due to concerns of confusion with the medication but she has not had any prednisone for a month and the son states she still has episodes of confusion. Patient appears alert and appropriate male, I have elected to place her back on a small dose of dexamethasone for comfort due to her rheumatoid. #6 history of cirrhosis-according to the patient, she had imaging studies done at the [facility] which show she has cirrhosis, I will order a serum ammonia level on the patient #7 chronic depression-patient is on Wellbutrin Total clinical time spent by myself addressing the patient's medical issues, reviewing all of her data, and collaborating with patient's care team: 50 minutes Charges/Coding Visit Charges Inpatient E&M: 25149 Subs Hosp L3
[2022-12-23] MEDS: Albuterol 2.5 MG/3 ML VIAL.NEB. INHALATION ×2 (15:40→22:03)
[2022-12-23] MEDS: Ensure Plus High Protein 120 ML LIQUID PO ×2 (17:29→21:28)
[2022-12-23] MEDS: Juven (unflavored) Packet 1 PACKET PO (17:29)
[2022-12-23] MEDS: Menthol/Lanolin/Calamine/Znox 113 GM Tube 1 APPLIC TOPICAL (17:30)
--- NOTE | 2022-12-23 21:49 | PCM.HOSP.N ---
Hospitalist Note Patient admitted 12/22/22 and patient with complaint per her report of even prior to admission ongoing L eye vision changes, mild L eye drop in addition to mild aphasia and reports she has had several days of difficulties with expression but she had been fatigued and ill upon presentation with UTI and this had not been communicated. She is now more alert and giving this history, thus to be cautious willl transfer patient to the PCU, will order CT head and given CrCl >40 will obtain also CTA Head and Neck, will obtain MRI Brain, ECHO w/ bubble, PT/OT/Speech/Nutrition evaluation per protocol. Given timeline of events will continue HTN regimen given this has been several days, will add asa, add low dose statin w/ AM FLP, fall precautions. Mag, TSH, FLP, HgbA1c requested. Maintain on fall and aspiration precautions. Once work-up obtained low threshold to obtain Neurology consultation.
--- NOTE | 2022-12-23 21:57 | CT_ITS ---
STUDY: CTA HEAD AND NECK WITH CONTRAST REASON FOR EXAM: Female, 77 years old. CVA RADIATION DOSAGE (If Supplied By Facility): CTDIvol = ( 29.46 ) mGy, DLP = ( 1490.63 ) mGycm TECHNIQUE: CT angiography was performed with a multi-detector CT scanner. Data acquisition was obtained from the skull base through the vertex following intravenous administration of IV 100mL [id number]-[id number]. MIP images were reconstructed from the axial data set. Post-processing of the angiographic images was performed, with multiplanar reformation and 3D reconstruction. Individualized dose optimization techniques were used for this CT. COMPARISON: No relevant priors. FINDINGS: Normal bilateral petrous carotid arteries. Normal right cavernous carotid artery with a normal supraclinoid bifurcation. Normal left cavernous carotid artery with a normal supraclinoid bifurcation. Normal right A1 segments of the anterior cerebral artery. Normal left A1 segments of the anterior cerebral artery. Normal intact anterior communicating artery (ACOM). Normal bilateral A2 segments of the anterior cerebral arteries. Normal right M1 and M2 segments of the middle cerebral arteries, with a normal M1 bifurcation. Normal left M1 and M2 segments of the middle cerebral arteries, with a normal M1 bifurcation. Normal right posterior communicating artery (PCOM). Normal left posterior communicating artery (PCOM). Normal bilateral vertebral arteries. Normal basilar artery with a normal basilar bifurcation. The visualized bilateral superior cerebellar (SCA) arteries are normal. Normal bilateral P1, P2 and visualized P3 segments of the posterior cerebral arteries. There is no demonstrated aneurysm of the [place] of [place]. There is no demonstrated abnormality of the visualized brain. AORTIC ARCH: Normal visualized aortic arch. Normal origins of the brachiocephalic, left common carotid, and left subclavian arteries. RIGHT CAROTID ARTERIES: Normal right common carotid artery (CCA). There is mild atherosclerotic plaque formation with minimal narrowing of the right carotid bulb. Normal origin of the right internal carotid (ICA) artery without a hemodynamically significant stenosis. Normal visualized cervical portion of the right internal carotid artery. Normal origin of the right external carotid artery (ECA). LEFT CAROTID ARTERIES: Normal left common carotid artery (CCA). There is mild atherosclerotic plaque formation with minimal narrowing of the left carotid bulb. Normal origin of the left internal carotid (ICA) artery without a hemodynamically significant stenosis. Normal visualized cervical portion of the left internal carotid artery. Normal origin of the left external carotid artery (ECA). VERTEBRAL ARTERIES: Normal bilateral vertebral arteries. CT/CTA Head AND Neck W/ Contrast IMPRESSION: Normal CTA Head with contrast. Mild calcified plaque at the carotid bifurcation bilaterally without measurable stenosis. Patent vertebral arteries bilaterally. Electronically Signed: Zain Kruse MD at 23:32 EDT ,
[2022-12-23 22:21] LABS: Magnesium 1.5 mg/dL (1.6-2.6)
--- NOTE | 2022-12-23 22:34 | NURSING ---
Update on patient was given to her son - Corey. Ms. Wolff went to CT and will then will go to PCU room 121.
--- NOTE | 2022-12-23 23:12 | ECHOD_ITS ---
Reason For Study: CVA Procedure This was a 2D Doppler, Color Flow transthoracic echocardiogram. Exam performed portable in patient room. Left Ventricle Normal LV size. The estimated ejection fraction is 70 %. Diastolic function is indeterminate. No regional wall motion abnormalities noted. Right Ventricle Normal RV size. Normal systolic function. Atria Normal left atrium. Normal right atrium. Bubble study is positive for right to left shunt. Mitral Valve Bileaflet diffuse mitral valve thickening. Calcifications noted in the sub mitral apparatus. There is no mitral valve stenosis. Mild (1+) mitral valve insufficiency. Tricuspid Valve There is no tricuspid stenosis. Trivial tricuspid valve insufficiency. Pulmonary artery systolic pressure is 35 mmHg. Aortic Valve Trisinus/trileaflet aortic valve. Aortic sclerosis, no stenosis. There is a small echodensity associated with the noncoronary cusp of the aortic valve. Consider JONO for further evaluation if clinically indicated. There is no aortic stenosis. No aortic valve insufficiency. Pulmonic Valve There is no pulmonic valvular stenosis. No pulmonic valve insufficiency. Great Vessels Normal aortic root. Pericardium/Pleural No pericardial effusion. Medication Performed a rapid injection of agitated mix of 9 cc saline and 1cc air to assess for atrial septal defect. MMode/2D Measurements & Calculations LVIDd: 5.0 cm IVSd: 0.82 cm Ao root diam: 2.9 cm LVIDs: 3.0 cm LVPWd: 0.78 cm RVDd: 3.6 cm FS: 39.3 % LAV(MOD-bp): 49.0 ml LVAd ap4: 19.9 cm2 SV(MOD-sp4): 31.4 ml LAV(MOD-bp) Indexed: 31.9 ml/m2 LVLd ap4: 7.0 cm LAV(MOD-sp2): 45.2 ml EDV(MOD-sp4): 47.1 ml LAV(MOD-sp4): 51.7 ml EDV(sp4-el): 48.2 ml LVAs ap4: 10.0 cm2 LVLs ap4: 5.8 cm ESV(MOD-sp4): 15.6 ml ESV(sp4-el): 14.5 ml EF(MOD-sp4): 66.8 % EF(sp4-el): 70.0 % SV(sp4-el): 33.7 ml LA A4 area: 18.2 cm2 LA dimension(2D): 3.8 cm RA A4 area: 7.7 cm2 TAPSE: 2.7 cm Time Measurements MV dec time: 0.23 sec Doppler Measurements & Calculations MV E max macario: 99.0 cm/sec Lat Peak E' Macario: 9.5 cm/sec Med Peak E' Macario: 7.9 cm/sec MV A max macario: 118.6 cm/sec E/E' lat: 10.5 E/E' med: 12.6 MV E/A: 0.83 MV dec slope: 434.3 cm/sec2 Ao V2 max: 178.7 cm/sec LV V1 max: 146.5 cm/sec Ao max P.8 mmHg LV V1 max P.6 mmHg Ao V2 mean: 125.8 cm/sec Ao mean P.1 mmHg Ao V2 VTI: 33.0 cm PA V2 max: 96.0 cm/sec TR max macario: 281.0 cm/sec TR max P.6 mmHg ECHO/Echo Complete Interpretation Summary The estimated ejection fraction is 70 %. Diastolic function is indeterminate. Bubble study is positive for right to left shunt. Mild (1+) mitral valve insufficiency. There is a small echodensity associated with the noncoronary cusp of the aortic valve. Consider JONO for further evaluation if clinically indicated. Ordering Physician: Katherine Caro Referring Physician: Ollie Colin Performed By: Suzanne Nicole RDCS, RVT
[2022-12-23] MEDS: Aspirin 325 MG Tablet PO (23:38)
[2022-12-23] MEDS: Atorvastatin Calcium 20 MG Tablet PO (23:40)
[2022-12-24] VITALS (8 sets, daily range): BP systolic 91–169; BP diastolic 53–86; PULSE 60–91; RESP 16–20; TEMP 36.3–36.7; O2SAT 93–98; BMI 21.3
[2022-12-24] MEDS: Pantoprazole Sodium 40 MG Tablet PO ×3 (00:15→23:15)
[2022-12-24] MEDS: NYSTATIN 500,000 UNIT/5 ML UDC 500000 UNIT PO ×5 (04:25→23:15)
[2022-12-24 06:58] LABS: Absolute Lymphocyte Count 0.71 X10^3/uL (0.83-4.51); Absolute Neutrophil Count 9.1 X10^3/uL (2.0-7.7); Basophil# 0.01 X10^3/uL; Basophil% 0.1 % (0-1); Hemoglobin 11.8 g/dL (12.0-15.0); Lymphocyte # 0.71 X10^3/ul (0.83-4.51); Lymphocyte % 6.7 % (19-41); Mean Corp Hgb Conc 34.7 g/dL (32-36); Mean Corpuscular Hgb 37.1 pg (27.0-32.0); Mean Corpuscular Volume 106.9 fL (81-99); Mean Platelet Vol. 10.3 fl (6.2-12.0); Monocyte# 0.75 X10^3/uL; NRBC Flagged by Analyzer 0 % (0-5); Neutrophil # 9.11 X10^3/uL (2.7-7.7); Neutrophil % 85.5 % (47-70); Platelet Count 193 K/mm3 (150-450); RBC Distribution Width CV 12.9 % (11.6-14.6); RBC Distribution Width SD 51.2 fl (35.1-43.9); Red Blood Count 3.18 M/mm3 (4.2-5.4); White Blood Count 10.7 K/mm3 (4.4-11.0)
[2022-12-24 07:36] LABS: ALB/GLOB Ratio 0.4 RATIO (0.9-2.4); AST(SGOT) 134 U/L (15-37); Alanine Aminotransfer ALT/SGPT 52 U/L (13-56); Albumin, Serum 1.7 g/dL (3.2-5.0); Alkaline Phosphatase 208 U/L (45-117); Anion Gap 4 (5-15); BUN 14 mg/dL (7-18); BUN/Creat Ratio 30.4 RATIO (10-20); Calcium,Total 8.5 mg/dL (8.5-10.1); Chloride 104 mmol/L (98-107); Cholesterol 78 mg/dL (200); Creatinine, Serum 0.46 mg/dL (0.55-1.02); EST Glomerular Filtration Rate 141 mL/min (>60); Est Glom Filt Rate - Afr Amer 170 mL/min (>60); Estimated Creatinine Clearance 40.21 ml/min; Globulin 4.7 g/dL (2.2-4.2); Glucose 123 mg/dL (74-106); High Density Lipoprotein 14 mg/dL; Magnesium 2.1 mg/dL (1.6-2.6); Potassium 4.3 mmol/L (3.5-5.1); Protein, Total 6.4 g/dL (6.4-8.2); Sodium Level 129 mmol/L (136-145); Thyroid Stim Hormone (TSH) 1.37 uIU/mL (0.358-3.74); Triglycerides 60 mg/dL; Very Low Density Lipoprotein 12 mg/dL (5-40)
[2022-12-24 08:07] LABS: Hemoglobin A1c 4.4 % (3.8-5.6)
--- NOTE | 2022-12-24 08:25 | RAD_ITS ---
INDICATION: Hypoxia EXAMINATION/TECHNIQUE: X-RAY - XR Chest 2 Views COMPARISON: 06/12/2019 FINDINGS: LIFE-SUPPORT AND LINES: 1. None HEART AND VESSELS: Cardiac silhouette is unchanged. There is extensive diffuse interstitial prominence throughout the RIGHT lung with volume loss the RIGHT lung base. Interstitial changes also present LEFT base. LEFT upper lobe is clear. Differential considerations include interstitial edema versus interstitial infiltrate. LUNGS AND PLEURAL SPACES: Diffuse interstitial prominence throughout the RIGHT lung and at the LEFT lung base. Interstitial infiltrate with developing area of consolidation at RIGHT lung base and small RIGHT effusion noted. No pulmonary mass is noted. MEDIASTINUM AND HILAR REGIONS: No masses adenopathy noted. No areas of calcification. Visualized upper airway is normal in position. BONY ELEMENTS: No acute bony changes noted. RAD/Chest PA and Lateral IMPRESSION: 1. Diffuse interstitial prominence throughout the lung and at the LEFT lung base. An element of interstitial edema is a consideration, however given the asymmetry diffuse interstitial infiltrate with area of consolidation at the RIGHT lung base suspected. RIGHT effusion noted. Electronically Signed: Zani Hayes MD at 19:31 EDT ,
[2022-12-24] MEDS: Juven (unflavored) Packet 1 PACKET PO ×2 (09:33→16:00)
[2022-12-24] MEDS: Aspirin 81 MG TAB.CHEW PO (09:33)
[2022-12-24] MEDS: Meloxicam 15 MG Tablet PO (09:33)
[2022-12-24] MEDS: buPROPion (XL) 150 MG TABLET.XL PO (09:34)
[2022-12-24] MEDS: Heparin Injection (Vial) 5,000 UNIT/ML VIAL 5000 UNIT SC ×2 (09:34→23:14)
[2022-12-24] MEDS: Hydroxychloroquine 200 MG Tablet 300 MG PO (09:34)
[2022-12-24] MEDS: dexAMETHasone 4 MG Tablet PO (09:34)
[2022-12-24] MEDS: Menthol/Lanolin/Calamine/Znox 113 GM Tube 1 APPLIC TOPICAL ×2 (09:35→23:12)
[2022-12-24] MEDS: Ensure Plus High Protein 120 ML LIQUID PO ×4 (09:44→23:12)
[2022-12-24] MEDS: Ceftriaxone 1 GM/50 ML BAG IV (09:57)
[2022-12-24 10:07] LABS: Pathologist Review Reviewed
[2022-12-24 10:11] LABS: Pathologist Review Reviewed
--- NOTE | 2022-12-24 10:45 | CON.PCM.ID_ITS ---
Assessment & Plan Assessment/Plan (1) Bacteremia: PLAN: MSSA bacteremia at this time we will treat with cefazolin 2 g IV every 8 hours. I did order blood cultures to be drawn today. Patient will need an echocardiogram. Patient will also benefit from physical therapy. HPI Consult Data Date of Consult: 12/24/22 HPI Narrative Reason for Consultation: Staphylococcus aureus bacteremia HPI Narrative: LIYA BRITT, is a 77 F who presents with intermittent confusion and generalized weakness. Patient has multiple comorbidities including rheumatoid arthritis, anxiety/depression and active alcohol use with underlying cirrhosis. Patient apparently had a right foot cellulitis upon presentation, interestingly her admission blood cultures are growing Staphylococcus aureus with the BC ID identified as MSSA. Patient denies any cardiopulmonary distress. No ariel acute arthritic symptoms. No skin lesions. Patient is generally weak, no focal neurological symptoms. Currently on ceftriaxone plus vancomycin. Overall hemodynamically stable. [facility] Medical History (Updated 12/24/22 @ 10:[address] Escobar Mcrae MD) Asthma Depression Former smoker Hyperlipemia Hypertension Kidney stones Rheumatoid arthritis Vitreous floaters of left eye Home Medications Lactobacillus acidophilus (Acidophilus capsule) 2 cap PO TID 06/21/21 [History Last Taken 12/22/22] amlodipine 5 mg tablet 5 mg PO DAILY 06/21/21 [History Last Taken 12/22/22] azelastine 137 mcg (0.1 %) nasal spray aerosol 137 mcg intranasal BID 06/21/21 [History Last Taken 12/22/22] bupropion HCl 150 mg 24 hr tablet, extended release (Wellbutrin XL) 150 mg PO DAILY 06/21/21 [History Last Taken 12/22/22] hydroxychloroquine 200 mg tablet (Plaquenil) 300 mg PO DAILY 06/21/21 [History Last Taken 12/22/22] metoprolol succinate 25 mg tablet,extended release 24 hr 25 mg PO DAILY 06/21/21 [History Last Taken 12/22/22] omeprazole 40 mg capsule,delayed release 40 mg PO DAILY 06/21/21 [History Last Taken 12/22/22] acetaminophen 500 mg tablet 1,000 - 1,500 mg PO Q6H PRN fever or pain 12/22/22 [History Last Taken 12/22/22] adalimumab 40 mg/0.4 mL subcutaneous pen kit (Humira(CF) Pen) 40 mg subcut Q14D 12/22/22 [History Last Taken 12/19/22] albuterol sulfate 90 mcg/actuation aerosol inhaler (Ventolin HFA) 1 - 2 puff inhalation Q4H PRN shortness of breath or wheezing 12/22/22 [History Last Taken 12/21/22] fenofibrate nanocrystallized 145 mg tablet 145 mg PO DAILY 12/22/22 [History Last Taken 12/22/22] meloxicam 15 mg tablet 15 mg PO DAILY 12/22/22 [History Last Taken 12/22/22] Allergy/AdvReac Type Severity Reaction Status Date / Time prednisone AdvReac Intermediate HALLUCINATI Verified 12/22/22 11:23 ONS Surgical History H/O bilateral hip replacements Social History (Updated 11/19/22 @ 08:[address] Cedric Umaña MD) household members: none and other details: Cat Smoking Status: Former smoker substance use type: does not use ROS ROS Narrative As stated in history of present illness otherwise negative Physical Exam Narrative Alert responsive does not appear acutely ill lungs are clear heart exam S1-S2 no murmurs appreciated abdomen soft nontender right foot looks relatively benign there is no ulcerations. Neurological exam is nonfocal. Lab / Micro Data 12/24/22 06:04 12/24/22 06:04 Labs: Laboratory Results - last 24 hr 12/22/22 11:40: Diff Path Review Reviewed 12/23/22 06:11: Diff Path Review Reviewed, Magnesium 1.5 L 12/24/22 06:04: WBC 10.7, RBC 3.18 L, Hgb 11.8 L, Hct 34.0 L, MCV 106.9 H, MCH 37.1 H, MCHC 34.7, RDW Std Deviation 51.2 H, RDW Coeff of Karen 12.9, Plt Count 193, MPV 10.3, Immature Gran % (Auto) 0.700, Neut % (Auto) 85.5 H, Lymph % (Auto) 6.7 L, Parmer % (Auto) 7.0, Eos % (Auto) 0.0, Baso % (Auto) 0.1, Absolute Neuts (auto) 9.1 H, Absolute Lymphs (auto) 0.71 L, Nucleated RBC % 0, Sodium 129 L, Potassium 4.3, Chloride 104, Carbon Dioxide 21.0, Anion Gap 4 L, BUN 14, Creatinine 0.46 L, Estim Creat Clear Calc 40.21, Est GFR (MDRD) Af Amer 170, Est GFR (MDRD) Non-Af 141, BUN/Creatinine Ratio 30.4 H, Glucose 123 H, Hemoglobin A1c 4.4, Calcium 8.5, Magnesium 2.1, Total Bilirubin 1.20 H, AST 134 H, ALT 52, Alkaline Phosphatase 208 H, Total Protein 6.4, Albumin 1.7 L, Globulin 4.7 H, Albumin/Globulin Ratio 0.4 L, Triglycerides 60, Cholesterol 78, LDL Cholesterol 52, VLDL Cholesterol 12, HDL Cholesterol 14 L, TSH 1.37 Micro: Microbiology 12/22/22 13:15 Urine, Catheterized Urine Culture - Final Staphylococcus aureus 12/22/22 11:45 Blood Culture (Wb) - Left Hand Blood Culture - Preliminary Staphylococcus aureus 12/22/22 11:40 Blood Culture (Wb) - Left Forearm Bacteria Detection (PCR) - Final Staphylococcus aureus 12/22/22 11:40 Blood Culture (Wb) - Left Forearm Blood Culture - Preliminary Staphylococcus aureus Radiology Impression Head/Neck CTA 12/23/22 21:57 IMPRESSION: Normal CTA Head with contrast. Mild calcified plaque at the carotid bifurcation bilaterally without measurable stenosis. Patent vertebral arteries bilaterally. Electronically Signed: Zain Kruse MD at 23:32 EDT ,
--- NOTE | 2022-12-24 11:39 | PCM.PN.HOSP ---
Subjective Subjective No issues overnight, had extensive discussion with her and the family she has been having memory decline over the last several years but got really bad recently with behavioral changes. She is also been having visual hallucinations. Objective Data Objective Data Vital Signs: Vital Signs Temp Pulse Resp BP Pulse Ox O2 Del Method O2 Flow Rate 97.8 F 81 16 93/70 94 Room Air 2 12/24/22 08:47 12/24/22 08:47 12/24/22 08:47 12/24/22 08:47 12/24/22 08:47 12/24/22 08:58 12/24/22 06:00 Oxygen Flow Rate (L/min) 2 Oxygen Delivery Method Room Air Weight: 117 lb 11.629 oz Body Mass Index (BMI) 21.3 Intake & Output: Intake and Output for Last 24 Hours 12/23/22 12/24/22 12/25/22 03:59 03:59 03:59 Intake Total 1687 / 1687 4816.66 / 4816.66 104 / 104 Output Total 650 / 650 750 / 750 Balance 1037 / 1037 4066.66 / 4066.66 104 / 104 Lab / Micro Data 12/24/22 06:04 12/24/22 06:04 Labs: Laboratory Results - last 24 hr 12/22/22 11:40: Diff Path Review Reviewed 12/23/22 06:11: Diff Path Review Reviewed, Magnesium 1.5 L 12/24/22 06:04: WBC 10.7, RBC 3.18 L, Hgb 11.8 L, Hct 34.0 L, MCV 106.9 H, MCH 37.1 H, MCHC 34.7, RDW Std Deviation 51.2 H, RDW Coeff of Karen 12.9, Plt Count 193, MPV 10.3, Immature Gran % (Auto) 0.700, Neut % (Auto) 85.5 H, Lymph % (Auto) 6.7 L, Lucas % (Auto) 7.0, Eos % (Auto) 0.0, Baso % (Auto) 0.1, Absolute Neuts (auto) 9.1 H, Absolute Lymphs (auto) 0.71 L, Nucleated RBC % 0, Sodium 129 L, Potassium 4.3, Chloride 104, Carbon Dioxide 21.0, Anion Gap 4 L, BUN 14, Creatinine 0.46 L, Estim Creat Clear Calc 40.21, Est GFR (MDRD) Af Amer 170, Est GFR (MDRD) Non-Af 141, BUN/Creatinine Ratio 30.4 H, Glucose 123 H, Hemoglobin A1c 4.4, Calcium 8.5, Magnesium 2.1, Total Bilirubin 1.20 H, AST 134 H, ALT 52, Alkaline Phosphatase 208 H, Total Protein 6.4, Albumin 1.7 L, Globulin 4.7 H, Albumin/Globulin Ratio 0.4 L, Triglycerides 60, Cholesterol 78, LDL Cholesterol 52, VLDL Cholesterol 12, HDL Cholesterol 14 L, TSH 1.37 Micro: Microbiology 12/22/22 13:15 Urine, Catheterized Urine Culture - Final Staphylococcus aureus 12/22/22 11:45 Blood Culture (Wb) - Left Hand Blood Culture - Preliminary Staphylococcus aureus 12/22/22 11:40 Blood Culture (Wb) - Left Forearm Bacteria Detection (PCR) - Final Staphylococcus aureus 12/22/22 11:40 Blood Culture (Wb) - Left Forearm Blood Culture - Preliminary Staphylococcus aureus 12/22/22 11:35 Nasal Secretion SARS-CoV-2 & FLU Antigen (Rapid) - Final Radiography Diagnostic Testing: Radiology Impression Head/Neck CTA 12/23/22 21:57 IMPRESSION: Normal CTA Head with contrast. Mild calcified plaque at the carotid bifurcation bilaterally without measurable stenosis. Patent vertebral arteries bilaterally. Electronically Signed: Zain Kruse MD at 23:32 EDT , Physical Exam Narrative General: Alert, Oriented x3, Cooperative, No apparent distress HEENT: Atraumatic, PERRLA, EOMI, Normocephalic Oral: Moist Mucosa Neck: Supple, No JVD Lungs: Diminished, Normal air movement, No rhonchi, No wheeze, No rales Cardiovascular: Regular rate, Regular Rhythm, Normal S1, Normal S2, No murmurs Abdomen: Soft, Non Tender, Non-Distended, No Hepato-splenomegaly Extremities: No edema, Capillary Refill Less than 3 Seconds Skin: No rashes, No breakdown Musculoskeletal: No Tenderness to Palpation of Joints or Extremities Neurological: Motor Exam 5/5 strength throughout, Sensory exam intact to light touch and pain Psych/Mental Status: Normal Affect, Appropriate Assessment & Plan Assessment/Plan (1) Cellulitis: PLAN: Plan 1. Cellulitis of the right foot/staph UTI with MSSA bacteremia/generalized debility and weakness ? Redness has resolved ? Appreciate IDs assistance ? Transition to [facility] ? PT/OT, family is looking into assisted living but she may need to go to SNF on discharge 2. Progressive dementia with visual hallucinations ? We will obtain an MRI, she is not having strokes ? Would benefit from a neuropsych evaluation on discharge 3. Rheumatoid arthritis ? Has only received a couple doses of Humira and has had interruptions to this because of medical issues ? She was taken off of steroids because of her confusion however being off of steroids has not helped her confusion so she was restarted back on Decadron 4 mg twice daily will decrease this to daily 4. history of cirrhosis-according to the patient, she had imaging studies done at the [facility] which show she has cirrhosis, I will order a serum ammonia level on the patient 5. chronic depression-patient is on Wellbutrin DVT: Heparin Charges/Coding Visit Charges Inpatient E&M: 04678 Subs Hosp L2
[2022-12-24 13:17] LABS: Vancomycin, Trough Level 5.8 ug/mL (5.0-15.0)
--- NOTE | 2022-12-24 14:13 | CASEMGMT ---
SHELL AKERS Discharge Planning Assessment: Face to Face with patient for initial transition planning/care coordination assessment. SHELL AKERS introduced self and role at [facility], pt sitting up in chair, alert, answering questions appropriately, voices understanding and agreeable to participating in assessment with daughter Thi at bedside. Care providers, pharmacy,?and demographics verified. ? Admitting Dx: Cellulitis PCP: Cristi Specialists: Markell (endless bed drum sander), Aparna (rheumatology) Preferred Pharmacy: [facility] Retail Insurance: MCR A/B, [employer] supplement Prescription Benefit:?yes LNOK: daughter Thi, son Corey Living Arrangements: Pt lives alone in a single story home with 2 steps w/handrail to enter. Pt had been independent with all ADLs until a month ago but has had a recent decline in ability to perform ADLs. Family have adapted pt's home to assist pt and added devices such as handrails on the bed and chairs, grab bars in the bathroom, lift chair, hand held shower, raised toilet seat, cane and wheeled walker. Rugs have been removed and pt's bedroom has been rearranged. Transportation: Pt drives DME: see above SNF/HHC: denies any previous providers but thinks she may have had HH for therapy s/p her hip replacements 20 yrs ago. Pt's daughter states they had recently hired ELECTRONIC EQUIPMENT SET UP OPERATOR from [employer] a few times a week to assist pt with AM care as that had been when she was having the most difficulty. States they had only been out once and pt had declined to the point they brought her to the ED. They were also looking into assisted living facilities. ? Plan: SNF. Per pt's daughter, pt realizes that pt cannot care for her self in her home at this time. Discussed next level of care being penitentiary to facilitate increased strength and then determining appropriate level of care at that time. Pt agreeable to plan. VESTA Barboza notified of discussion and request to provide additional information and answer family's questions. Aidan Chavez RN CM
--- NOTE | 2022-12-24 14:27 | CASEMGMT ---
SW was informed that therapy is recommending care home facility. Patient and family are in agreement. VESTA met with patient and her daughter Thi. VESTA introduced self and role at [facility]. SW went over Medicare coverage for care home facility. VESTA also provided them with a list of care home facility providers including quality and resource use data and consistent with patient?s preferred geographic region, medical needs, and insurance network were provided from the [employer] Guide. Their top 3 choices were [facility], [facility], and [facility]. VESTA made a referral to [facility], however the regional coordinator is out until Saturday. SW also had Cherelle send a referral to [facility]. SW let patient's daughter Thi know that SW will likely not get back with them regarding [facility] or [facility] today. VESTA explained [facility] coverage and [facility] coverage. Plan: [facility] vs [facility] pending their acceptance. Tamra Wiley DISHWASHER [employer]
--- NOTE | 2022-12-24 14:30 | MRI_ITS ---
EXAM: MR HEAD WITHOUT INTRAVENOUS CONTRAST CLINICAL INDICATION: CVA APHASIA LT EYE VISION CHANGE CONFUSION TECHNIQUE: Multiplanar and multisequence MR images of the brain were obtained without intravenous contrast. Magnetic field strength 1.5 T. COMPARISON: Noncontrast head CT 12/24/2021. FINDINGS: BRAIN AND EXTRA-AXIAL SPACES: Abnormal T2 signal in the deep cerebral white matter is consistent with chronic small vessel ischemic/degenerative changes. The cerebral and cerebellar sulci are prominent consistent with brain atrophy. No intra- or extra-axial hemorrhage. No intracranial mass or mass effect. Basal cisterns are patent. SELLA: Unremarkable. Normal sella turcica, pituitary gland, infundibular stalk, optic chiasm and hypothalamus. AUDITORY SYSTEM: Unremarkable. The internal auditory canals are patent. BONES/JOINTS: Unremarkable. No discrete lytic or blastic abnormalities. SINUSES: Unremarkable as visualized. Clear. MASTOID AIR CELLS: Unremarkable as visualized. Clear. ORBITS: Unremarkable as visualized. Both globes, extraocular muscles, optic nerves and retrobulbar fat appear unremarkable. VASCULATURE: Unremarkable as visualized. Normal flow voids in the major intracranial circulation. MRI/Brain without Contrast IMPRESSION: 1. Chronic small vessel ischemic/degenerative changes. 2. Cerebral and cerebellar atrophy. Electronically Signed: Tima Torres MD at 22:26 EDT ,
--- NOTE | 2022-12-24 14:49 | CASEMGMT ---
Discharge Planning Referral sent to [facility] via [facility]. Cherelle Xavier, Discharge Planning Asst.
--- NOTE | 2022-12-24 14:57 | CHAPLAIN ---
Type of Pastoral Visit _x__ Initial Visit ___ Follow-up Visit ___ On-call Visit ___ General Patient Visit ___ Spiritual Assessment ___ Family Conference ___ Bereavement ___ Rapid Response ___ Code Blue ___ Other (describe below) Pastoral Care Referral From _x__ Patient ___ Family ___ Nurse ___ Physician ___ Portfolio Architect ___ Cabinetmaker Maintenance ___ Other (describe below) Sacrament/Intervention _x__ Active listening ___ Anointing ___ Episcopalian _x__ Bereavement ___ Communion ___ Cori exploration ___ _x__ Life review _x__ Prayer ___ Reconciliation ___ Sacrament of Sick _x__ Supportive presence ___ Wedding ___ Other (describe below) Pastoral Comments patient and daughter are just ready to have lunch; patient is welcoming and talkative about her situation; pt was two years ago and is processing through grief; pt was very active physically until a year ago and is now very limited in any activity which is very difficult for her; pt is tearful as she admits her struggles; pt has been having counseling; pt has not been back to taoist since COVID and of spouse; pt has great support from daughter locally and son who is out of state; offer of support, validation of feelings, listening to concerns, and prayer given; ongoing support to be available as desired
[2022-12-24] MEDS: Cefazolin 2 GM in 0.9% Normal Saline 100 ML IV ×2 (15:59→23:20)
[2022-12-24] MEDS: Atorvastatin Calcium 20 MG Tablet PO (23:15)
[2022-12-25] VITALS (8 sets, daily range): BP systolic 104–114; BP diastolic 64–76; PULSE 81–92; RESP 15–17; TEMP 36.3–36.6; O2SAT 90–94; BMI 21.3
[2022-12-25] MEDS: Cefazolin 2 GM in 0.9% Normal Saline 100 ML IV ×3 (05:40→20:44)
[2022-12-25 06:19] LABS: Absolute Lymphocyte Count 1.24 X10^3/uL (0.83-4.51); Absolute Neutrophil Count 10.3 X10^3/uL (2.0-7.7); Basophil# 0.03 X10^3/uL; Basophil% 0.2 % (0-1); Hematocrit 34.4 % (37-47); Hemoglobin 11.6 g/dL (12.0-15.0); Lymphocyte # 1.24 X10^3/ul (0.83-4.51); Lymphocyte % 9.3 % (19-41); Mean Corp Hgb Conc 33.7 g/dL (32-36); Mean Corpuscular Hgb 36.4 pg (27.0-32.0); Mean Corpuscular Volume 107.8 fL (81-99); Mean Platelet Vol. 10.5 fl (6.2-12.0); Monocyte# 1.56 X10^3/uL; Monocyte% 11.8 % (0-10); NRBC Flagged by Analyzer 0 % (0-5); Neutrophil # 10.29 X10^3/uL (2.7-7.7); Neutrophil % 77.6 % (47-70); POSITIVE DIFFERENTIAL YES; Platelet Count 218 K/mm3 (150-450); Red Blood Count 3.19 M/mm3 (4.2-5.4); White Blood Count 13.3 K/mm3 (4.4-11.0)
[2022-12-25 06:45] LABS: Anion Gap 4 (5-15); BUN 24 mg/dL (7-18); BUN/Creat Ratio 40.7 RATIO (10-20); Calcium,Total 8.5 mg/dL (8.5-10.1); Chloride 107 mmol/L (98-107); Creatinine, Serum 0.59 mg/dL (0.55-1.02); EST Glomerular Filtration Rate 106 mL/min (>60); Est Glom Filt Rate - Afr Amer 128 mL/min (>60); Estimated Creatinine Clearance 40.21 ml/min; Glucose 96 mg/dL (74-106); Potassium 4.2 mmol/L (3.5-5.1); Sodium Level 135 mmol/L (136-145)
[2022-12-25 07:08] LABS: Differential Indicated SCAN CRITERIA MET
[2022-12-25 09:11] LABS: Differential Comment SCANNED
[2022-12-25] MEDS: Ensure Plus High Protein 120 ML LIQUID PO ×3 (09:15→20:45)
[2022-12-25] MEDS: Aspirin 81 MG TAB.CHEW PO (09:16)
[2022-12-25] MEDS: Menthol/Lanolin/Calamine/Znox 113 GM Tube 1 APPLIC TOPICAL ×2 (09:16→20:47)
[2022-12-25] MEDS: dexAMETHasone 4 MG Tablet PO (09:17)
[2022-12-25] MEDS: NYSTATIN 500,000 UNIT/5 ML UDC 500000 UNIT PO ×4 (09:18→20:44)
[2022-12-25] MEDS: Hydroxychloroquine 200 MG Tablet 300 MG PO (09:18)
[2022-12-25] MEDS: Meloxicam 15 MG Tablet PO (09:18)
[2022-12-25] MEDS: Pantoprazole Sodium 40 MG Tablet PO ×2 (09:19→20:45)
[2022-12-25] MEDS: buPROPion (XL) 150 MG TABLET.XL PO (09:20)
[2022-12-25] MEDS: Metoprolol(XL)Succ 25 MG Tablet PO (09:20)
[2022-12-25] MEDS: Heparin Injection (Vial) 5,000 UNIT/ML VIAL 5000 UNIT SC ×2 (09:21→20:44)
--- NOTE | 2022-12-25 09:46 | ECHOTEE_ITS ---
Reason For Study: R/O ENDOCARDITIS Medication JONO probe 6VT-D (SN [id number]) passed without difficulty. No complications were noted. Cetacaine Topical Rembrandt given X3 orally. Versed 1 mg given slow IVP. Fentanyl 50 mcg given slow IVP. Left Ventricle Normal left ventricle. Left ventricular systolic function is normal. The estimated ejection fraction is 60 %. No regional wall motion abnormalities noted. Right Ventricle Normal RV size. Normal systolic function. Atria Patent foramen ovale. Normal left atrium. No thrombus is detected in the left atrial appendage. Normal right atrium. Mitral Valve Normal mitral valve. Mild (1+) eccentric mitral valve insufficiency. Tricuspid Valve Normal tricuspid valve. Aortic Valve Trisinus/trileaflet aortic valve. Pulmonic Valve Normal pulmonic valve. Vessels Normal aortic root. Normal arch. The pulmonary artery is normal size. Pericardium No pericardial effusion. ECHO/Echo Transesophageal (JONO) Interpretation Summary Normal left ventricle. Left ventricular systolic function is normal. The estimated ejection fraction is 60 %. No thrombus is detected in the left atrial appendage. Trisinus/trileaflet aortic valve. No lesion is detected in the region of the aortic valve. Ordering Physician: Dennis Walker Referring Physician: Ollie Colin Performed By: Yulisa Badillo, RENEA, RVT
--- NOTE | 2022-12-25 09:47 | PN.HOSP_ITS ---
Subjective Subjective Doing well, no issues overnight Objective Data Objective Data Vital Signs: Vital Signs Temp Pulse Resp BP Pulse Ox O2 Del Method O2 Flow Rate 97.8 F 88 16 109/67 92 Room Air 2 12/25/22 08:45 12/25/22 09:20 12/25/22 08:45 12/25/22 08:45 12/25/22 08:45 12/25/22 08:57 12/24/22 06:00 Oxygen Flow Rate (L/min) 2 Oxygen Delivery Method Room Air Weight: 117 lb 11.629 oz Body Mass Index (BMI) 21.3 Intake & Output: Intake and Output for Last 24 Hours 12/24/22 12/25/22 12/26/22 03:59 03:59 03:59 Intake Total 4816.66 / 4816.66 1854 / 1854 230 / 230 Output Total 750 / 750 980 / 980 300 / 300 Balance 4066.66 / 4066.66 874 / 874 -70 / -70 Medical Nutrition Assessment Dietitian: Malnutrition Criteria Met Start: 12/24/22 13:27 Freq: Status: Active Protocol: Document 12/24/22 13:27 RMA (Rec: 12/24/22 13:27 RMA [id number]) Nutrition Malnutrition Evidence of Malnutrition Exists Yes Malnutrition (severe): Acute Illness/Injury Evidenced By Suboptimal Energy Intake ( Severe),Weight Loss (Severe), Physical Changes (Moderate) Intake Problem Inadequate Oral Intake Etiology related to altered taste and inadequate energy intake Signs/Symptoms as evidenced by ~21% weight loss x 6 months Status Active Problem Increased Nutrient Needs (specify) Etiology (protein) related to wound healing Signs/Symptoms as evidenced by pressure injury on coccyx and cellulitis of the right foot. Status Active Problem Clinical Problem Acute Disease or Injury Related Malnutrition Etiology Severe protein-calorie malnutrition in the context of acute illness related to inadequate oral intake, altered sense of taste, difficulty chewing and inability to consume adequate energy/protein Signs/Symptoms as evidenced by PO meeting less than 50% estimated nutrition needs x 6 months, BMI 20.9, weight loss~21% x 6 months, moderate fat depletion /muscle wasting in the face, clavicle, arms and legs, need for [id number] foods and PO at meals currently ~50% at best Status Active Problem Recommendation Dietitian Recommendations/Changes Will continue liberalized Regular diet with [id number] foods/thin liquids as ordered . Will continue Ensure Plus HP 120mL 4x/day with medpass. Will continue Jorge BID w/ medpass for wound healing. Will add magic cup BID w/ lunch and dinner for tolerance . Will adjust ONS to optimize oral intake and prevent further pro/shona depletion. Lab / Micro Data 12/25/22 05:25 12/25/22 05:25 Labs: Laboratory Results - last 24 hr 12/22/22 11:40: Diff Path Review Reviewed 12/23/22 06:11: Diff Path Review Reviewed 12/24/22 11:30: Vancomycin Trough 5.8 12/25/22 05:25: WBC 13.3 H, RBC 3.19 L, Hgb 11.6 L, Hct 34.4 L, MCV 107.8 H, MCH 36.4 H, MCHC 33.7, RDW Std Deviation 52.0 H, RDW Coeff of Karen 13.0, Plt Count 218, MPV 10.5, Immature Gran % (Auto) 1.100 H, Neut % (Auto) 77.6 H, Lymph % (Auto) 9.3 L, [place] % (Auto) 11.8 H, Eos % (Auto) 0.0, Baso % (Auto) 0.2, Absolute Neuts (auto) 10.3 H, Absolute Lymphs (auto) 1.24, Nucleated RBC % 0, Differential Comment SCANNED, Diff Path Review May , Sodium 135 L, Potassium 4.2, Chloride 107, Carbon Dioxide 24.0, Anion Gap 4 L, BUN 24 H, Creatinine 0.59, Estim Creat Clear Calc 40.21, Est GFR (MDRD) Af Amer 128, Est GFR (MDRD) Non-Af 106, BUN/Creatinine Ratio 40.7 H, Glucose 96, Calcium 8.5 Micro: Microbiology 12/22/22 11:45 Blood Culture (Wb) - Left Hand Blood Culture - Final Staphylococcus aureus 12/22/22 11:40 Blood Culture (Wb) - Left Forearm Bacteria Detection (PCR) - Final Staphylococcus aureus 12/22/22 11:40 Blood Culture (Wb) - Left Forearm Blood Culture - Final Staphylococcus aureus 12/22/22 13:15 Urine, Catheterized Urine Culture - Final Staphylococcus aureus 12/22/22 11:35 Nasal Secretion SARS-CoV-2 & FLU Antigen (Rapid) - Final Radiography Diagnostic Testing: Radiology Impression Echocardiogram 12/23/22 23:12 Interpretation Summary The estimated ejection fraction is 70 %. Diastolic function is indeterminate. Bubble study is positive for right to left shunt. Mild (1+) mitral valve insufficiency. There is a small echodensity associated with the noncoronary cusp of the aortic valve. Consider JONO for further evaluation if clinically indicated. Ordering Physician: Katherine Caro Referring Physician: Ollie Colin Performed By: Suzanne Nicole, RDCS, RVT Chest X-Ray 12/24/22 08:25 IMPRESSION: 1. Diffuse interstitial prominence throughout the lung and at the LEFT lung base. An element of interstitial edema is a consideration, however given the asymmetry diffuse interstitial infiltrate with area of consolidation at the RIGHT lung base suspected. RIGHT effusion noted. Electronically Signed: Zain Hayes MD at 19:31 EDT , Brain MRI 12/24/22 14:30 IMPRESSION: 1. Chronic small vessel ischemic/degenerative changes. 2. Cerebral and cerebellar atrophy. Electronically Signed: Tima Torres MD at 22:26 EDT , Physical Exam Narrative General: Alert, Oriented x3, Cooperative, No apparent distress HEENT: Atraumatic, PERRLA, EOMI, Normocephalic Oral: Moist Mucosa Neck: Supple, No JVD Lungs: Diminished, Normal air movement, No rhonchi, No wheeze, No rales Cardiovascular: Regular rate, Regular Rhythm, Normal S1, Normal S2, No murmurs Abdomen: Soft, Non Tender, Non-Distended, No Hepato-splenomegaly Extremities: No edema, Capillary Refill Less than 3 Seconds Skin: No rashes, No breakdown Musculoskeletal: No Tenderness to Palpation of Joints or Extremities Neurological: Motor Exam 5/5 strength throughout, Sensory exam intact to light touch and pain Psych/Mental Status: Normal Affect, Appropriate Assessment & Plan Assessment/Plan (1) Cellulitis: PLAN: Plan 1. Cellulitis of the right foot/staph UTI with MSSA bacteremia/generalized debility and weakness ? Redness has resolved ? Appreciate IDs assistance ? Echo for stroke evaluation demonstrated possible valvular lesions, will obtain a JONO tomorrow she does have some dysphagia but she denies any sensations of food sticking or catching that would indicate stricture or stenosis ? [facility] ? PT/OT, family is looking into assisted living but she may need to go to SNF on discharge 2. Progressive dementia with visual hallucinations ? MRI is negative for any structural abnormality or ischemia ? She has had an extensive biochemical work-up at another hospital ? Would benefit from a neuropsych evaluation on discharge 3. Rheumatoid arthritis ? Has only received a couple doses of Humira and has had interruptions to this because of medical issues ? She was taken off of steroids because of her confusion however being off of steroids has not helped her confusion so she was restarted back on Decadron 4 mg twice daily will decrease this to daily 4. history of cirrhosis-according to the patient, she had imaging studies done at the [facility] which show she has cirrhosis, I will order a serum ammonia level on the patient 5. chronic depression-patient is on Wellbutrin DVT: Heparin Charges/Coding Visit Charges Inpatient E&M: 57994 Subs Hosp L2
--- NOTE | 2022-12-25 14:26 | PCM.PN.CARD ---
Subjective Subjective Patient denies any cardiac complaints at this time. Discussed the abnormal echo findings with the patient and also with patient's power of attorney lawyer, her daughter. Patient has some difficulty swallowing but does not appear to be an obstructive issue. Discussed risks and benefits of JONO with the patient. Patient wishes to proceed with a JONO as she wants to know 1 way or the other if she has evidence of infective endocarditis. We will schedule this for tomorrow. Objective Data Vital Signs: Vital Signs Temp Pulse Resp BP Pulse Ox O2 Del Method O2 Flow Rate 97.8 F 88 16 109/67 92 Room Air 2 12/25/22 08:45 12/25/22 09:20 12/25/22 08:45 12/25/22 08:45 12/25/22 08:45 12/25/22 08:57 12/24/22 06:00 Oxygen Flow Rate (L/min) 2 Oxygen Delivery Method Room Air Weight: 117 lb 11.629 oz Body Mass Index (BMI) 21.3 Intake & Output: Intake and Output for Last 24 Hours 12/23/22 12/24/22 12/25/22 23:59 23:59 23:59 Intake Total 4016.66 / 4416.66 2544 / 2544 340 / 340 Output Total 1100 / 1100 980 / 980 300 / 300 Balance 2916.66 / 3316.66 1564 / 1564 40 / 40 Lab / Micro Data 12/25/22 05:25 12/25/22 05:25 Labs: Laboratory Results - last 24 hr 12/25/22 05:25: WBC 13.3 H, RBC 3.19 L, Hgb 11.6 L, Hct 34.4 L, MCV 107.8 H, MCH 36.4 H, MCHC 33.7, RDW Std Deviation 52.0 H, RDW Coeff of Karen 13.0, Plt Count 218, MPV 10.5, Immature Gran % (Auto) 1.100 H, Neut % (Auto) 77.6 H, Lymph % (Auto) 9.3 L, Forrest % (Auto) 11.8 H, Eos % (Auto) 0.0, Baso % (Auto) 0.2, Absolute Neuts (auto) 10.3 H, Absolute Lymphs (auto) 1.24, Nucleated RBC % 0, Differential Comment SCANNED, Diff Path Review October, Sodium 135 L, Potassium 4.2, Chloride 107, Carbon Dioxide 24.0, Anion Gap 4 L, BUN 24 H, Creatinine 0.59, Estim Creat Clear Calc 40.21, Est GFR (MDRD) Af Amer 128, Est GFR (MDRD) Non-Af 106, BUN/Creatinine Ratio 40.7 H, Glucose 96, Calcium 8.5 Micro: Microbiology 12/22/22 11:45 Blood Culture (Wb) - Left Hand Blood Culture - Final Staphylococcus aureus 12/22/22 11:40 Blood Culture (Wb) - Left Forearm Bacteria Detection (PCR) - Final Staphylococcus aureus 12/22/22 11:40 Blood Culture (Wb) - Left Forearm Blood Culture - Final Staphylococcus aureus Cardiology Labs/Tests 12/25/22 05:25: WBC 13.3 H, RBC 3.19 L, Hgb 11.6 L, Hct 34.4 L, MCV 107.8 H, MCH 36.4 H, MCHC 33.7, Plt Count 218, MPV 10.5, Immature Gran % (Auto) 1.100 H, Neut % (Auto) 77.6 H, Lymph % (Auto) 9.3 L, Forrest % (Auto) 11.8 H, Eos % (Auto) 0.0, Baso % (Auto) 0.2, Absolute Neuts (auto) 10.3 H, Nucleated RBC % 0, Sodium 135 L, Potassium 4.2, Chloride 107, Carbon Dioxide 24.0, Anion Gap 4 L, BUN 24 H, Creatinine 0.59, Est GFR (MDRD) Af Amer 128, Est GFR (MDRD) Non-Af 106, BUN/Creatinine Ratio 40.7 H, Glucose 96, Calcium 8.5 Rhythm: EKG: ECHO: Stress Test: Cardiac Cath: PCI: CT Surgery: Holter monitor: EPS: PPM: CXR: Chest CT Scan: Radiography Diagnostic Testing: Radiology Impression Chest X-Ray 12/24/22 08:25 IMPRESSION: 1. Diffuse interstitial prominence throughout the lung and at the LEFT lung base. An element of interstitial edema is a consideration, however given the asymmetry diffuse interstitial infiltrate with area of consolidation at the RIGHT lung base suspected. RIGHT effusion noted. Electronically Signed: Zain Hayes MD at 19:31 EDT , Brain MRI 12/24/22 14:30 IMPRESSION: 1. Chronic small vessel ischemic/degenerative changes. 2. Cerebral and cerebellar atrophy. Electronically Signed: Tima Torres MD at 22:26 EDT ,
[2022-12-25] MEDS: Atorvastatin Calcium 20 MG Tablet PO (20:45)
[2022-12-25] MEDS: guaiFENesin 1,200 MG Tablet 1200 MG PO (22:27)
[2022-12-26] VITALS (8 sets, daily range): BP systolic 108–120; BP diastolic 62–74; PULSE 72–78; RESP 15–17; TEMP 36.2–36.7; O2SAT 91–97; BMI 21.3
[2022-12-26] MEDS: Cefazolin 2 GM in 0.9% Normal Saline 100 ML IV ×3 (05:07→21:51)
[2022-12-26 06:43] LABS: Absolute Lymphocyte Count 1.52 X10^3/uL (0.83-4.51); Absolute Neutrophil Count 7.2 X10^3/uL (2.0-7.7); Basophil# 0.01 X10^3/uL; Basophil% 0.1 % (0-1); Hematocrit 34.7 % (37-47); Lymphocyte # 1.52 X10^3/ul (0.83-4.51); Lymphocyte % 14.7 % (19-41); Mean Corp Hgb Conc 34.6 g/dL (32-36); Mean Corpuscular Hgb 36.9 pg (27.0-32.0); Mean Corpuscular Volume 106.8 fL (81-99); Mean Platelet Vol. 10.3 fl (6.2-12.0); Monocyte# 1.56 X10^3/uL; Monocyte% 15.1 % (0-10); NRBC Flagged by Analyzer 0 % (0-5); Neutrophil # 7.17 X10^3/uL (2.7-7.7); Neutrophil % 69.3 % (47-70); POSITIVE DIFFERENTIAL YES; Platelet Count 210 K/mm3 (150-450); RBC Distribution Width CV 13.6 % (11.6-14.6); RBC Distribution Width SD 53.5 fl (35.1-43.9); Red Blood Count 3.25 M/mm3 (4.2-5.4); White Blood Count 10.3 K/mm3 (4.4-11.0)
[2022-12-26 06:52] LABS: Differential Indicated SCAN CRITERIA MET
[2022-12-26 07:17] LABS: Anion Gap 3 (5-15); BUN 16 mg/dL (7-18); BUN/Creat Ratio 42.7 RATIO (10-20); Calcium,Total 8.1 mg/dL (8.5-10.1); Chloride 108 mmol/L (98-107); Creatinine, Serum 0.38 mg/dL (0.55-1.02); EST Glomerular Filtration Rate 178 mL/min (>60); Est Glom Filt Rate - Afr Amer 215 mL/min (>60); Estimated Creatinine Clearance 40.21 ml/min; Glucose 71 mg/dL (74-106); Potassium 3.7 mmol/L (3.5-5.1); Sodium Level 136 mmol/L (136-145)
[2022-12-26 07:19] LABS: Differential Comment SCANNED
--- NOTE | 2022-12-26 09:34 | PN.HOSP_ITS ---
Subjective Subjective No issues overnight, plan for JNOO today Objective Data Objective Data Vital Signs: Vital Signs Temp Pulse Resp BP Pulse Ox O2 Del Method O2 Flow Rate 97.8 F 76 17 118/72 97 Nasal Cannula 2 12/26/22 09:12 12/26/22 09:12 12/26/22 09:12 12/26/22 09:12 12/26/22 09:12 12/26/22 09:16 12/26/22 09:16 Oxygen Flow Rate (L/min) 2 Oxygen Delivery Method Nasal Cannula Weight: 117 lb 11.629 oz Body Mass Index (BMI) 21.3 Intake & Output: Intake and Output for Last 24 Hours 12/25/22 12/26/22 12/27/22 03:59 03:59 03:59 Intake Total 1854 / 1854 1450 / 1450 110 / 110 Output Total 980 / 980 800 / 800 Balance 874 / 874 650 / 650 110 / 110 Medical Nutrition Assessment Dietitian: Malnutrition Criteria Met Start: 12/24/22 13:27 Freq: Status: Active Protocol: Document 12/24/22 13:27 RMA (Rec: 12/24/22 13:27 RMA [id number]) Nutrition Malnutrition Evidence of Malnutrition Exists Yes Malnutrition (severe): Acute Illness/Injury Evidenced By Suboptimal Energy Intake ( Severe),Weight Loss (Severe), Physical Changes (Moderate) Intake Problem Inadequate Oral Intake Etiology related to altered taste and inadequate energy intake Signs/Symptoms as evidenced by ~21% weight loss x 6 months Status Active Problem Increased Nutrient Needs (specify) Etiology (protein) related to wound healing Signs/Symptoms as evidenced by pressure injury on coccyx and cellulitis of the right foot. Status Active Problem Clinical Problem Acute Disease or Injury Related Malnutrition Etiology Severe protein-calorie malnutrition in the context of acute illness related to inadequate oral intake, altered sense of taste, difficulty chewing and inability to consume adequate energy/protein Signs/Symptoms as evidenced by PO meeting less than 50% estimated nutrition needs x 6 months, BMI 20.9, weight loss~21% x 6 months, moderate fat depletion /muscle wasting in the face, clavicle, arms and legs, need for ibfm-nm-fafx foods and PO at meals currently ~50% at best Status Active Problem Recommendation Dietitian Recommendations/Changes Will continue liberalized Regular diet with [id number] foods/thin liquids as ordered . Will continue Ensure Plus HP 120mL 4x/day with medpass. Will continue Jorge BID w/ medpass for wound healing. Will add magic cup BID w/ lunch and dinner for tolerance . Will adjust ONS to optimize oral intake and prevent further pro/shona depletion. Lab / Micro Data 12/26/22 06:20 12/26/22 06:20 Labs: Laboratory Results - last 24 hr 12/26/22 06:20: WBC 10.3, RBC 3.25 L, Hgb 12.0, Hct 34.7 L, MCV 106.8 H, MCH 36.9 H, MCHC 34.6, RDW Std Deviation 53.5 H, RDW Coeff of Karen 13.6, Plt Count 210, MPV 10.3, Immature Gran % (Auto) 0.800, Neut % (Auto) 69.3, Lymph % (Auto) 14.7 L, [place] % (Auto) 15.1 H, Eos % (Auto) 0.0, Baso % (Auto) 0.1, Absolute Neuts (auto) 7.2, Absolute Lymphs (auto) 1.52, Nucleated RBC % 0, Differential Comment SCANNED, Sodium 136, Potassium 3.7, Chloride 108 H, Carbon Dioxide 25.0, Anion Gap 3 L, BUN 16, Creatinine 0.38 L, Estim Creat Clear Calc 40.21, Est GFR (MDRD) Af Amer 215, Est GFR (MDRD) Non-Af 178, BUN/Creatinine Ratio 42.7 H, Glucose 71 L, Calcium 8.1 L Micro: Microbiology 12/24/22 11:45 Blood Culture (Wb) - Anticubital Right Blood Culture - Preliminary No growth in 48 hours. 12/24/22 11:30 Blood Culture (Wb) - Anticubital Right Blood Culture - Preliminary No growth in 48 hours. 12/22/22 11:45 Blood Culture (Wb) - Left Hand Blood Culture - Final Staphylococcus aureus 12/22/22 11:40 Blood Culture (Wb) - Left Forearm Bacteria Detection (PCR) - Final Staphylococcus aureus 12/22/22 11:40 Blood Culture (Wb) - Left Forearm Blood Culture - Final Staphylococcus aureus 12/22/22 13:15 Urine, Catheterized Urine Culture - Final Staphylococcus aureus 12/22/22 11:35 Nasal Secretion SARS-CoV-2 & FLU Antigen (Rapid) - Final Physical Exam Narrative General: Alert, Oriented x3, Cooperative, No apparent distress HEENT: Atraumatic, PERRLA, EOMI, Normocephalic Oral: Moist Mucosa Neck: Supple, No JVD Lungs: Diminished, Normal air movement, No rhonchi, No wheeze, No rales Cardiovascular: Regular rate, Regular Rhythm, Normal S1, Normal S2, No murmurs Abdomen: Soft, Non Tender, Non-Distended, No Hepato-splenomegaly Extremities: No edema, Capillary Refill Less than 3 Seconds Skin: No rashes, No breakdown Musculoskeletal: No Tenderness to Palpation of Joints or Extremities Neurological: Motor Exam 5/5 strength throughout, Sensory exam intact to light touch and pain Psych/Mental Status: Normal Affect, Appropriate Assessment & Plan Assessment/Plan (1) Cellulitis: PLAN: Plan 1. Cellulitis of the right foot/staph UTI with MSSA bacteremia/generalized debility and weakness ? Redness has resolved ? Appreciate IDs assistance ? Echo for stroke evaluation demonstrated possible valvular lesions, will obtain a JONO tomorrow she does have some dysphagia but she denies any sensations of food sticking or catching that would indicate stricture or stenosis ? [facility] ? Repeat blood cultures are negative ? PT/OT, family is looking into assisted living but she may need to go to SNF on discharge 2. Progressive dementia with visual hallucinations ? MRI is negative for any structural abnormality or ischemia ? She has had an extensive biochemical work-up at another hospital ? Would benefit from a neuropsych evaluation on discharge 3. Rheumatoid arthritis ? Has only received a couple doses of Humira and has had interruptions to this because of medical issues ? She was taken off of steroids because of her confusion however being off of steroids has not helped her confusion so she was restarted back on Decadron 4 mg twice daily will decrease this to daily 4. history of cirrhosis-according to the patient, she had imaging studies done at the [facility] which show she has cirrhosis, I will order a serum ammonia level on the patient 5. chronic depression-patient is on Wellbutrin DVT: Heparin Charges/Coding Visit Charges Inpatient E&M: 35809 Subs Hosp L2
--- NOTE | 2022-12-26 10:00 | CASEMGMT ---
Addendum entered by Evelyn Sutton 12/26/22 11:17: Social Work [facility] can take pt, SW will let pt know. KEKE Rasmussen Original Note: Social Work SW spoke w/pt about her alcohol use. Pt states drinks wine, 1-3 glasses per evening. She states being here has been a wake up call, is interested in information for support to stop. Pt states lost her in 2019, and is alone. SW asked if she is interested in grief support also, pt states no, she is doing okay w/this now. SW provided to pt a list of local AA meetings and information for [facility]. Plan continues to be for [facility], waiting for responses from both on if they can take pt. [facility] asked about pt's alcohol use, they have been updated. KEKE Rasmussen
[2022-12-26] MEDS: Ensure Plus High Protein 120 ML LIQUID PO ×3 (10:13→21:53)
[2022-12-26] MEDS: Menthol/Lanolin/Calamine/Znox 113 GM Tube 1 APPLIC TOPICAL ×2 (10:21→21:51)
--- NOTE | 2022-12-26 10:59 | CASEMGMT ---
Discharge Planning Patient has been accepted by [facility]. SW notified. Cherelle Xavier, Discharge Planning Asst.
--- NOTE | 2022-12-26 11:36 | CASEMGMT ---
Social Work SW let pt know [facility] did accept her. Pt does prefer [facility]CU to [facility]. SW explained we can wait to see if TCU can take her, will continue to follow. KEKE Rasmussen
--- NOTE | 2022-12-26 11:44 | PCM.PN.ID ---
ID ID: Patient is alert and conversive. No cardiopulmonary distress. Tolerating cefazolin well. Repeat blood cultures remain negative. Patient did undergo diagnostic transesophageal echocardiogram earlier this morning results pending. Transthoracic echocardiogram report reviewed. On exam she is alert responsive does not appear toxic. Vital signs reviewed. No fevers. Lungs are clear heart exam S1-S2 abdomen soft nontender Route of nutrition/ use of supplements: [] Nutritional Intake: [] IV Site: [] Harp Catheter: [] Assessment & Plan Assessment/Plan (1) Bacteremia: PLAN: MSSA bacteremia in a patient with underlying cirrhosis currently on cefazolin 2 g IV every 8 hours. We will continue cefazolin 2 g IV every 8 hours. If the JONO shows valvular vegetation on the left side i.e. aortic or mitral valve then patient will require 6 weeks of parenteral antibiotic therapy. If there is no evidence of valvular vegetation, would recommend 4 weeks of cefazolin 2 g IV every 8 hours.
[2022-12-26] MEDS: NYSTATIN 500,000 UNIT/5 ML UDC 500000 UNIT PO ×3 (12:25→21:52)
[2022-12-26] MEDS: buPROPion (XL) 150 MG TABLET.XL PO (12:25)
[2022-12-26] MEDS: Aspirin 81 MG TAB.CHEW PO (12:26)
[2022-12-26] MEDS: guaiFENesin 1,200 MG Tablet 1200 MG PO ×2 (12:26→21:52)
[2022-12-26] MEDS: Meloxicam 15 MG Tablet PO (12:26)
[2022-12-26] MEDS: dexAMETHasone 4 MG Tablet PO (12:26)
[2022-12-26] MEDS: Metoprolol(XL)Succ 25 MG Tablet PO (12:26)
[2022-12-26] MEDS: Pantoprazole Sodium 40 MG Tablet PO ×2 (12:26→21:52)
[2022-12-26] MEDS: Heparin Injection (Vial) 5,000 UNIT/ML VIAL 5000 UNIT SC ×2 (12:27→21:52)
[2022-12-26] MEDS: Hydroxychloroquine 200 MG Tablet 300 MG PO (12:27)
--- NOTE | 2022-12-26 12:32 | NURSING ---
AM medications given late due to JONO. Pt unable to have liquids until 1000 and solids at 1200.
--- NOTE | 2022-12-26 16:10 | CASEMGMT ---
Social Work Spoke with Tara at [facility] who reports patient can be accepted to [facility]. Spoke with Denia at [facility] who reports patient can be admitted to the TCU, though could not provide the Humira while the patient is on the TCU. Presented to patient's room and spoke with patient's daughter Thi. Patient sleeping soundly in bed, did not awaken. Updated Thi to acceptance at both [facility] and [facility]. Educated to the limits of the Humira at [facility]. Thi reports belief patient will be okay holding the Humira as patient has associated this medication with medical complications. Daughter also voicing support of holding the Humira and going with TCU. Thi plans to talk with patient when patient wakes up, as patient is still sleepy from procedure patient had today, though Thi expresses TCU would be the first choice in Thi's mind. Note, during conversation the daughter mentioned pain as an issues for patient in conjunction with chronic illness. Broached palliative care services as a potential option/service for patient should patient have difficult symptom control with ongoing chronic illnesses. Thi reports this may be of interest if it would help the patient be comfortable. Updated Denia in TCU from conversation with daughter, TCU continues to be first choice for patient's aftercare needs. Plan: [facility] TCU (holding the Humira while at TCU), though W is another option if needed. Skilled level of care at the . -TAYLOR Rebollar MSW
[2022-12-26] MEDS: Atorvastatin Calcium 20 MG Tablet PO (21:52)
[2022-12-27 00:51] VITALS: BMI 21.3
[2022-12-27 04:00] VITALS: BP 105/60; PULSE 72; RESP 15; TEMP 36.3; O2SAT 94
[2022-12-27] MEDS: Cefazolin 2 GM in 0.9% Normal Saline 100 ML IV ×2 (05:27→13:21)
[2022-12-27 06:46] LABS: Absolute Lymphocyte Count 1.37 X10^3/uL (0.83-4.51); Absolute Neutrophil Count 6.4 X10^3/uL (2.0-7.7); Basophil# 0.02 X10^3/uL; Basophil% 0.2 % (0-1); Eosinophil# 0.04 X10^3/uL; Eosinophils% 0.4 % (0-5); Hematocrit 33.8 % (37-47); Hemoglobin 11.7 g/dL (12.0-15.0); Lymphocyte # 1.37 X10^3/ul (0.83-4.51); Lymphocyte % 14.7 % (19-41); Mean Corp Hgb Conc 34.6 g/dL (32-36); Mean Corpuscular Hgb 37.3 pg (27.0-32.0); Mean Corpuscular Volume 107.6 fL (81-99); Mean Platelet Vol. 10.1 fl (6.2-12.0); Monocyte# 1.34 X10^3/uL; Monocyte% 14.4 % (0-10); NRBC Flagged by Analyzer 0 % (0-5); Neutrophil # 6.39 X10^3/uL (2.7-7.7); Neutrophil % 68.8 % (47-70); Platelet Count 200 K/mm3 (150-450); RBC Distribution Width CV 13.9 % (11.6-14.6); RBC Distribution Width SD 54.9 fl (35.1-43.9); Red Blood Count 3.14 M/mm3 (4.2-5.4); White Blood Count 9.3 K/mm3 (4.4-11.0)
[2022-12-27 07:20] LABS: Anion Gap 7 (5-15); BUN 14 mg/dL (7-18); Calcium,Total 7.9 mg/dL (8.5-10.1); Chloride 108 mmol/L (98-107); Creatinine, Serum 0.41 mg/dL (0.55-1.02); EST Glomerular Filtration Rate 160 mL/min (>60); Est Glom Filt Rate - Afr Amer 193 mL/min (>60); Estimated Creatinine Clearance 40.21 ml/min; Glucose 76 mg/dL (74-106); Potassium 3.5 mmol/L (3.5-5.1); Sodium Level 139 mmol/L (136-145)
[2022-12-27] MEDS: Aspirin 81 MG TAB.CHEW PO (08:39)
[2022-12-27] MEDS: Juven (unflavored) Packet 1 PACKET PO (08:39)
[2022-12-27] MEDS: Menthol/Lanolin/Calamine/Znox 113 GM Tube 1 APPLIC TOPICAL (08:40)
[2022-12-27] MEDS: dexAMETHasone 4 MG Tablet PO (08:41)
[2022-12-27] MEDS: Heparin Injection (Vial) 5,000 UNIT/ML VIAL 5000 UNIT SC (08:41)
[2022-12-27] MEDS: NYSTATIN 500,000 UNIT/5 ML UDC 500000 UNIT PO ×2 (08:41→13:22)
[2022-12-27] MEDS: Meloxicam 15 MG Tablet PO (08:41)
[2022-12-27] MEDS: Hydroxychloroquine 200 MG Tablet 300 MG PO (08:41)
[2022-12-27] MEDS: guaiFENesin 1,200 MG Tablet 1200 MG PO (08:41)
[2022-12-27] MEDS: Ensure Plus High Protein 120 ML LIQUID PO (08:41)
[2022-12-27 08:42] VITALS: PULSE 89
[2022-12-27] MEDS: 0.9% Saline Lock 10 ML Syringe IV ×2 (08:42→13:22)
[2022-12-27] MEDS: Pantoprazole Sodium 40 MG Tablet PO (08:42)
[2022-12-27] MEDS: Metoprolol(XL)Succ 25 MG Tablet PO (08:42)
[2022-12-27] MEDS: buPROPion (XL) 150 MG TABLET.XL PO (08:42)
[2022-12-27 08:55] VITALS: O2SAT 81
[2022-12-27 09:00] VITALS: BP 119/64; PULSE 73; RESP 14; TEMP 36.6; O2SAT 92
--- NOTE | 2022-12-27 09:06 | PCM.PN.ID ---
ID ID: Patient is alert and responsive, out of bed to a chair eating breakfast. No cardiopulmonary distress. No gastrointestinal symptoms. Tolerating cefazolin well. Transesophageal echocardiogram report reviewed. Repeat blood cultures from December 24 remain negative today. Alert and oriented does not appear toxic lungs are clear heart exam S1-S2 abdomen soft nontender. Vital signs are reviewed, remains euthermic. Route of nutrition/ use of supplements: [] Nutritional Intake: [] IV Site: [] Harp Catheter: [] Assessment & Plan Assessment/Plan (1) Bacteremia: PLAN: Continue cefazolin 2 g IV every 8 hours. Recommend to continue parenteral antibiotic therapy in the form of cefazolin 2 g IV every 8 hours for total 4 weeks through January 21. Weekly blood work while on cefazolin will include CMP, CBC
--- NOTE | 2022-12-27 11:51 | CASEMGMT ---
Patient does not have a Healthcare Power of [place] or Healthcare Living Will on file at [facility]. Per admission questions patient has a Healthcare Power of [place] and Healthcare Living Will and her daughter Thi is her Healthcare Power of [place]. SW let patient know the documents are not on file at [facility]. Tamra Wiley HEAT PUMP INSTALLERMolly REYNOSO
--- NOTE | 2022-12-27 13:28 | CASEMGMT ---
SW spoke with patient and her daughter. They are both aware and in agreement with patient going to [facility] TCU today. Plan: d/c to [facility] TCU under skilled level of care. Tamra REYNOSO
[2022-12-27 15:00] VITALS: BP 124/70; PULSE 97; RESP 14; TEMP 36.8; O2SAT 94
--- NOTE | 2022-12-27 15:00 | SP.MBSS_ITS ---
Modified Barium Swallow Patient Information Study Date: 12/27/22 Study Time: 13:30 Direct Billable Minutes: 120 Total Minutes procedure & reportin Diagnosis: R78.81 - Bacteremia, G93.41 - Metabolic encephalopathy Referring Physician: Tanner Farooq Reason for Referral: Objectively assess swallow function, risk for aspiration and to determine recommendations for LRD and compensatory strategies to improve safety of swallow. Medical History: Suly Wolff is a 77-year-old female with a PMH of? Asthma, Depression, Former smoker, Hyperlipemia, Hypertension, Kidney stones, Rheumatoid arthritis, and Vitreous floaters of left eye. See PMH in the H&P for full report. Patient presented to [facility] ED on 12/22/22, after being brought in by her family due to generalized debility that is worsened over the last several days. Patient has a long history of rheumatoid arthritis and she has been under treatment as an outpatient. Patient's son also states that the patient has been having some periods of confusion over the last month, her lens mold setter felt it might be secondary to prednisone that she had been taking for rheumatoid and so the prednisone was stopped. However, she continues to have episodes where she gets confused and cries out. Patient has no history of any dementia or cognitive impairment. Patient's urinalysis was abnormal. Chest x-ray showed bibasilar atelectasis. Patient was admitted for cellulitis of the right foot, generalized debility, and acute cystitis.? She was given antibiotics in the emergency room, I will maintain the patient on IV Rocephin for cellulitis and UTI. Patient referred for speech evaluation due to difficulty with word finding and swallowing concerns. Per conversation with pt, pt reports having difficulty swallowing with xerostomia for the last 3 months. Pt reported she thought difficulty with slurred speech may be due to xerostomia. Pt's daughter reports pt had episode last night on dinner, where she was coughing on food. Pt's daughter reported pt was eating beef tips, which appeared to be soft, and easy to chew. Pt reported the food felt stuck in her throat, she feels like there is a bubble stuck in her throat, and reports having this difficulty with swallowing (pills and food), weekly. Pt reported dryer foods such as meats, and breads give her the most trouble with her swallowing. Pt reported she cannot taste certain foods since past hx of covid, but feels her taste is slowly coming back. Additionally, pt and daughter report having ongoing cough, and throat clearing for ~7 years, with no hx of PNA's. Current Diet Ordered: Easy to Chew / Thin Liquids Mental Status: WNL Comment: Patient does have intermittent confusion. Respiratory Status: Oxygenating on 2L/M nasal cannula Penetration-Aspiration Scale Penetration-Aspiration Scale: OBJECTIVE ASSESSMENT OF SWALLOW FUNCTION (QUANTITATIVE ? PER TRIAL): PENETRATION / ASPIRATION SCALE (SHAH): 1 = does not enter airway 2 = enters airway/above vocal folds/ejected 3 = enters airway/above vocal folds/not ejected 4 = enters airway/contacts vocal folds/ejected 5 = enters airway/contacts vocal folds/not ejected 6 = enters airway/below vocal folds/ejected 7 = enters airway/below vocal folds/not ejected despite effort 8 = enters airway/below vocal folds/no effort VIDEOFLOROSCOPIC SCALE SCORE (SHAH): Grade I = aspiration of material that has penetrated into the laryngeal vestibule, intact cough reflex Grade II = aspiration < 10 % of the bolus, intact cough reflex Grade III = aspiration of < 10 % of the bolus, reduced cough reflex or aspiration of > 10 % of the bolus, intact cough reflex Grade IV = aspiration of > 10 % of the bolus, reduced cough reflex Penetration-Aspiration Scale Score Thin Liquid via tsp: Result: 1= does not enter airway Thin liquid via cup: Result: 1= does not enter airway Thin liquid via cup #2: Result: 2= enter airway/above vocal folds/ejected Thin liquid via cup w/ effortful swallow: Result: 1= does not enter airway Thin liquid via straw: Result: 1= does not enter airway [place] liquid via cup: Result: 1= does not enter airway Honey liquid via cup: Result: 1= does not enter airway Pudding: Result: 1= does not enter airway Bite of Patty Doone (1/4 of cookie): Result: 1= does not enter airway Thin liquid via cup #3: Result: 2= enter airway/above vocal folds/ejected Thin liquid via cup #4: Result: 2= enter airway/above vocal folds/ejected Thin liquid via cup #5: Result: 1= does not enter airway Oral Phase Labial Seal: No Labial Escape Tongue Control During Bolus Hold: Posterior escape of greater than half of bolus Bolus Preparation/Mastication: Slow prolonged chewing/mashing with complete recollection Bolus Transport/Lingual Motion: Repetitive/disorganized tongue motion Oral Residue: Residue collection on oral structures Pharyngeal Phase Initiation of Pharyngeal Swallow: Bolus head in pyriforms Soft Palate Elevation: No bolus between soft palate and pharyngeal wall Laryngeal Elevation: Partial superior movement thyroid cart/partial apprx aryt- epig petiole Anterior Hyoid Excursion: Complete anterior movement Epiglottic Movement: Partial inversion Laryngeal Vestibule Closure at Height of Swallow: Incomplete; narrow column of air/contrast in laryngeal vestibule Pharyngeal Stripping Wave: Present - diminished Pharyngoesophageal Segment Opening: Complete distension and complete duration; no obstruction of flow Tongue Base Retraction: Narrow column of contrast between tongue base & post. pharyngeal wall Pharyngeal Residue: Collection of residue within or on pharyngeal structures Diagnosis/Impression Diagnosis: mild oropharyngeal dysphagia R13.12 Impression: Patient presents w/ mild oropharyngeal dysphagia. Oral phase primarily marked by... - mild mastication insufficiency w/ cookie - suboptimal lingual control w/ noted reduced lingual lateralizations resulting in oral residue post deglutition - swallow onset delay and decreased bolus control w/ premature spillage to the pyriforms observed w/ several consistencies - majority of cookie trial to the vallecula prior to swallow onset Pharyngeal phase primarily marked by... - delayed pharyngeal onset timing resulting in suboptimal bolus location upon swallow onset - decreased airway closure during deglutition attributed to insufficient epiglottis inversion - penetration that was fully ejected was observed w/ thin via cup 3/5 trials - poor pharyngeal motility attributed to reduced tongue base and reduced posterior stripping wave action resulting in pharyngeal residue in the vallecula and pyriforms - pharyngeal residue remaining in the vallecula and pyriforms did somewhat decrease w/ use of double swallow. Patient is at risk for post prandial aspiration. Recommendations Diet: Regular Textures and Thin Liquids Compensatory Strategies: Small Bites, Small Sips, Multiple Swallows, Alternate bites/solids and sips/liquids, Sitting upright and Remain sitting upright for 30 minutes after PO intake Need for Skilled Speech Therapy Services: Yes Education Completed: 1. Described result of evaluation. Status Active ST Patient: Active Contact Information [facility] Speech Therapy:: Gill Saldivar M.A. [facility] Speech-Language Pathologist [facility] [address] [place] [address] [email or web address] [phone]
--- NOTE | 2022-12-27 16:01 | TREXTCAR_ITS ---
Diet Diet Order/Speech Therapy: 12/26/22 11:03 Diet: Regular - General Food consistency:: Easy to Chew Liquid Consistency:: Regular/Thin Type of Dietary Supplement:: Magic Cup Dessert Is pt able to select menu?: Yes Diet Comments: Pills whole 1/time; [id number] magic cup BID w/ lunch and dinner Routine Orders/Code Status Routine Lab Work: - (CBC and CMP weekly starting 12/31/2022) Code Status: Full Code Wound(s) RIGHT FOOT: Wound Type: cellulitis coccyx: Wound Type: Pressure Injury Therapies Weight Bearing: Full weight bearing Physical Therapy: Eval and Treat Occupational Therapy: Eval and Treat Speech Therapy: Eval and Treat Problem/Diagnosis (1) Bacteremia: Status: Acute Code(s): R78.81 - Bacteremia Plan 1. Cellulitis of the right foot- #2 acute cystitis with staph- #3 Staph bacteremia-methicillin sensitive #4 generalized debility-secondary to chronic medical problems including rheumatoid arthritis, chronic depression, and cirrhosis-patient will be seen by PT and OT, it is likely she will need short-term placement in the half-way facility #5 rheumatoid arthritis-patient is on outpatient Humira #6 history of cirrhosis-according to the patient, she had imaging studies done at the [facility] which show she has cirrhosis #7 chronic depression-patient is on Wellbutrin #8 acute severe protein and caloric malnutrition-is evidenced by p.o. meeting less than 50% estimated nutritional needs x6 months, BMI 20.9, weight loss approximately 21% over 6 months, moderate fat depletion/muscle wasting in the face, clavicle, arms and legs-continue liberalized regular diet with easy to chew foods/thin liquids as ordered, Ensure plus HP 120 mL 4 times a day with med Pass, Jorge twice daily with med Pass for wound healing #9 dementia with visible hallucinations Total clinical time spent by myself addressing the patient's medical issues, reviewing all of her data, and collaborating with patient's care team: 50 minutes Allergies/Procedures Done in Hospital Allergies prednisone Adverse Reaction (Intermediate, Verified 12/22/22 11:23) HALLUCINATIONS Procedures: Transesophageal Echo Type of Care/Length of Stay Estimated LOS: Convalescent Care Less Than 30 days Type of Care Needed: Skilled Rehab Potential: Good Prognosis: Good Additional Orders/Day of Discharge H&P will serve as current which was dated: 12/22/22 Day of Discharge: 12/27/22 Dietary and Speech Recommendations Dietitian Recommendations/Changes: Will continue liberalized Regular diet with [id number] foods/thin liquids as ordered. Will continue Ensure Plus HP 120mL 4x/day with medpass. Will continue Jorge BID w/ medpass for wound healing. Will continue magic cup BID w/ lunch and dinner for tolerance. Will adjust ONS to optimize oral intake and prevent further pro/shona depletion. Speech Linguistic Eval Summary: 12/25/22 Riri participating in administration of the UMS Cognitive Assessment. Pt scoring 18/30 which demonstrates moderately severe cognitive deficit suggestive of dementia. Pt oriented to ZEFERINO, date, and state. Immediate recall of 5 objects with 40% acc with patient benefiting from repetition of words to improve immediate recall to 100%. Short-term recall of same 5 objects across a 5 min. delay with 60% acc. Pt completing divergent naming task via naming 11 animals in 60 sec. Pt with 3 instances of word finding difficulties throughout evaluation. Pt completing executive function task via a clock drawing with SEVERE difficulties - Pt taking greater than 10 min. to complete. Pt drawing lines to each hour from the center and placing only 3/12 hour numbers correctly independently and benefited from mod assist to place the remaining numbers. Pt then going back and crossing out the correct answers d/t confusion. Pt completing mental manipulation tasks with 100% acc. Pt completing basic addition/subtraction math tasks with 0% acc. Pt completing auditory comprehension task via answering comp questions with 75% acc independently. Pt reporting that she was living at home alone, managed her own medications and finances, and was also driving. When asked if she felt like she could do those things today, she said yes, demonstrating poor deficit awareness of the severe executive functioning and problem solving skills. 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 Discussed continuing with speech therapy at the next level of care to target Moderately-Severe Cognitive Deficits. Discharge Plan Admission Admit Date/Time: 12/22/22 17:50 Primary Reason for Your Visit: Methicillin sensitive staph aureus bacteremia, cellulitis Attending Provider: Tanner Farooq Primary Care Provider: Ollie Colin Consulting Providers: Tanner Farooq; Escobar Mcrae; Dennis Walker Discharge Orders/Prescriptions Prescriptions: New albuterol sulfate 2.5 mg /3 mL (0.083 %) Solution For Nebulization 2.5 mg inhalation Q2H PRN PRN (Reason: Dyspnea, wheezing) Qty: 0 0RF dexamethasone 4 mg Tablet 4 mg PO DAILY Qty: 0 0RF menthol-zinc oxide [Calmoseptine] 0.44-20.6 % Ointment 1 applic topical BID Qty: 0 0RF Protocol: *Topical Application Instructions APPLICATION INSTRUCTIONS: Apply to Coccyx Ensure Plus High Protein 0.08 gram-1.5 kcal/mL Liquid 120 ml PO 4X/DAY Qty: 0 0RF Jorge (with collagen) 7-7-1.5 gram Powder In Packet 1 packet PO BIDCM Qty: 0 0RF nystatin 100,000 unit/mL Suspension 500,000 unit PO 4X/DAY Qty: 0 0RF pantoprazole 40 mg Tablet,Delayed Release (Dr/Ec) 40 mg PO BID Qty: 1 0RF cefazolin 2 gram recon soln 2 g IV Q8H Rx Instructions: Start on 12/27/2022, continue through January 21, 2023 Continued metoprolol succinate 25 mg tablet extended release 24 hr 25 mg PO DAILY hydroxychloroquine [Plaquenil] 200 mg tablet 300 mg PO DAILY bupropion HCl [Wellbutrin XL] 150 mg tablet extended release 24 hr 150 mg PO DAILY meloxicam 15 mg tablet 15 mg PO DAILY Discontinued amlodipine 5 mg tablet 5 mg PO DAILY omeprazole 40 mg capsule,delayed release(DR/EC) 40 mg PO DAILY azelastine 137 mcg (0.1 %) aerosol,spray 137 mcg INTRANASAL BID Acidophilus Capsule 2 cap PO TID Humira(CF) Pen 40 mg/0.4 mL pen injector kit 40 mg SUBCUT Q14D fenofibrate nanocrystallized 145 mg tablet 145 mg PO DAILY albuterol sulfate [Ventolin HFA] 90 mcg/actuation HFA aerosol inhaler 1 - 2 puff INHALATION Q4H PRN (Reason: shortness of breath or wheezing) acetaminophen 500 mg tablet 1,000 - 1,500 mg PO Q6H PRN (Reason: fever or pain) Referrals / Follow Up: Ollie Colin DO [Primary Care Provider] - Disposition Disposition (needs filled in before D/C Order can be placed): [facility]
--- NOTE | 2022-12-27 16:32 | DS.PCM_ITS ---
Providers Date of Admission: 12/22/22 Date of Discharge: 12/27/22 Primary Care Physician: Dr. Ollie Colin, Consultations 12/23/22 15:02 Consult: Infectious Disease Routine Consulting Provider: Escobar Mcrae Reason for Consult: staph bacteremia EMERGENT Consult: No MD Notified: Yes Date Notified: 12/23/22 Time Notified: 15:02 Method of Notification: Verbal Reason For Visit: CELLULITIS OF THE RIGHT FOOT, DEBILITY, ACUTE CYST Diagnosis Discharge Diagnosis (1) Bacteremia: Status: Acute Code(s): R78.81 - Bacteremia Plan 1. Cellulitis of the right foot- #2 acute cystitis with staph- #3 Staph bacteremia-methicillin sensitive #4 generalized debility-secondary to chronic medical problems including rheumatoid arthritis, chronic depression, and cirrhosis-patient will be seen by PT and OT, it is likely she will need short-term placement in the retirement facility #5 rheumatoid arthritis-patient is on outpatient Humira #6 history of cirrhosis-according to the patient, she had imaging studies done at the [facility] which show she has cirrhosis #7 chronic depression-patient is on Wellbutrin #8 acute severe protein and caloric malnutrition-is evidenced by p.o. meeting less than 50% estimated nutritional needs x6 months, BMI 20.9, weight loss approximately 21% over 6 months, moderate fat depletion/muscle wasting in the fa ce, clavicle, arms and legs-continue liberalized regular diet with easy to chew foods/thin liquids as ordered, Ensure plus HP 120 mL 4 times a day with med Pass, Jorge twice daily with med Pass for wound healing #9 dementia with visible hallucinations Total clinical time spent by myself addressing the patient's medical issues, reviewing all of her data, and collaborating with patient's care team: 50 minutes Medications at Discharge Home Medications bupropion HCl 150 mg 24 hr tablet, extended release (Wellbutrin XL) 150 mg PO DAILY MOOD 06/21/21 hydroxychloroquine 200 mg tablet (Plaquenil) 300 mg PO DAILY RA 06/21/21 metoprolol succinate 25 mg tablet,extended release 24 hr 25 mg PO DAILY BP 06/21/21 meloxicam 15 mg tablet 15 mg PO DAILY RA 12/22/22 albuterol sulfate 2.5 mg/3 mL (0.083 %) solution for nebulization 2.5 mg (3 mL) inhalation Q2H PRN PRN Dyspnea, wheezing #0 mL 12/27/22 arginine 7 gram-glutam 7 gram-CaHMB 1.5 eply-qmduj-ew-min oral pwd pkt (Jorge (with collagen)) 1 packet PO BIDCM WOUND HEALING #0 ea 12/27/22 cefazolin 2 gram intravenous solution 2 g IV Q8H ANTIBIOTICS 12/27/22 dexamethasone 4 mg tablet 4 mg PO DAILY INFLAMMATION #0 tabs 12/27/22 food supplemt, lactose-reduced 0.08 gram-1.5 kcal/mL oral liquid (Ensure Plus High Protein) 120 ml PO 4X/DAY SUPPLEMENT #0 mL 12/27/22 menthol 0.44 %-zinc oxide 20.6 % topical ointment (Calmoseptine) 1 applic topical BID SKIN IRRITA #0 grams 12/27/22 nystatin 100,000 unit/mL oral suspension 500,000 unit (5 mL) PO 4X/DAY THRUSH #0 mL 12/27/22 pantoprazole 40 mg tablet,delayed release 40 mg PO BID ACID REFLUX #1 TAB 12/27/22 Hospital Course Operations None Procedures 2-D Echocardiogram and PICC line placement Summary of Care Provided Minutes Spent on Discharge: 31 Hospital Course: This 77-year-old white female was seen in the emergency room [facility] [place] after being brought in by her family due to generalized debility that is worsened over the past several days. Patient also complained of right foot pain over the last 48 hours, she denied any injury to the area. Patient's son stated that the patient has also been having periods of confusion over the past month that was at first attributed to prednisone usage but continued after her prednisone was stopped. Work-up in the emergency room showed an elevated white blood cell count 13.8, chemistry panel showed a sodium of 128 and potassium of 3.4. Patient's urinalysis was abnormal with a white blood cell count of 10-25, +1 bacteria, positive urine occult blood. X-ray of the right foot revealed no evidence of fracture there was degenerative changes noted. Patient's right foot appears to be swollen and reddened. Patient was admitted to PCU for cellulitis of the right foot, generalized debility, and acute cystitis, she was given IV antibiotics and eventually patient's blood cultures were positive for gram-positive cocci which was Staph aureus-methicillin sensitive, antibiotics were adjusted and patient was seen in consultation by ID and underwent a transthoracic echocardiogram and then a trans esophageal echocardiogram, no evidence of vegetations were noted to be present. T and OT saw the patient, she was felt to be appropriate to go to an extended care facility for short-term rehab services and she was excepted by TCU. On 12/27/2022, patient was seen and examined: On examination she appeared in good health and spirits, she does not appear to be in any distress. Patient exhibits mild confusion. Vital signs as documented. Skin warm and dry and without overt rashes. Neck without JVD, thyroid appears normal, trachea is midline, neck is supple. Lungs clear, normal air movement was noted. Heart exam notable for regular rhythm, normal sounds and absence of murmurs, rubs or gallops. Abdomen unremarkable and without evidence of organomegaly, masses, or abdominal aortic enlargement, bowel sounds are present in all 4 quadrants, no abdominal tenderness was noted. Extremities nonedematous, no cyanosis was noted, no clubbing was noted. Neuro: Cranial nerves II through XII are grossly intact, no focal motor deficits were noted, sensation to light touch and pinprick is intact, motor exam 5/5 throughout. Psych: Patient is alert and oriented as to person and place, she does not appear anxious or depressed, she does not appear agitated. On 12/27/2022, patient was seen and examined and felt to be in stable condition to transfer to transitional care unit for inpatient rehab services. Medical Records Data Medical Nutrition Assessment Dietitian: Malnutrition Criteria Met Start: 12/24/22 13:27 Freq: Status: Active Protocol: Document 12/24/22 13:27 RMA (Rec: 12/24/22 13:27 RMA [id number]) Nutrition Malnutrition Evidence of Malnutrition Exists Yes Malnutrition (severe): Acute Illness/Injury Evidenced By Suboptimal Energy Intake ( Severe),Weight Loss (Severe), Physical Changes (Moderate) Intake Problem Inadequate Oral Intake Etiology related to altered taste and inadequate energy intake Signs/Symptoms as evidenced by ~21% weight loss x 6 months Status Active Problem Increased Nutrient Needs (specify) Etiology (protein) related to wound healing Signs/Symptoms as evidenced by pressure injury on coccyx and cellulitis of the right foot. Status Active Problem Clinical Problem Acute Disease or Injury Related Malnutrition Etiology Severe protein-calorie malnutrition in the context of acute illness related to inadequate oral intake, altered sense of taste, difficulty chewing and inability to consume adequate energy/protein Signs/Symptoms as evidenced by PO meeting less than 50% estimated nutrition needs x 6 months, BMI 20.9, weight loss~21% x 6 months, moderate fat depletion /muscle wasting in the face, clavicle, arms and legs, need for tvdf-br-bytq foods and PO at meals currently ~50% at best Status Active Problem Recommendation Dietitian Recommendations/Changes Will continue liberalized Regular diet with abze-bx-nqrz foods/thin liquids as ordered . Will continue Ensure Plus HP 120mL 4x/day with medpass. Will continue Jorge BID w/ medpass for wound healing. Will add magic cup BID w/ lunch and dinner for tolerance . Will adjust ONS to optimize oral intake and prevent further pro/shona depletion. Weight / BMI Weight Weight: 53.4 kg Body Mass Index (BMI) 21.3 ABG / Lab / Microbiology Data 12/27/22 06:05 12/27/22 06:05 Laboratory: Laboratory Results - last 24 hr 12/27/22 06:05: WBC 9.3, RBC 3.14 L, Hgb 11.7 L, Hct 33.8 L, MCV 107.6 H, MCH 37.3 H, MCHC 34.6, RDW Std Deviation 54.9 H, RDW Coeff of Karen 13.9, Plt Count 200, MPV 10.1, Immature Gran % (Auto) 1.500 H, Neut % (Auto) 68.8, Lymph % (Auto) 14.7 L, Davie % (Auto) 14.4 H, Eos % (Auto) 0.4, Baso % (Auto) 0.2, Absolute Neuts (auto) 6.4, Absolute Lymphs (auto) 1.37, Nucleated RBC % 0, Sodium 139, Potassium 3.5, Chloride 108 H, Carbon Dioxide 24.0, Anion Gap 7, BUN 14, Creatinine 0.41 L, Estim Creat Clear Calc 40.21, Est GFR (MDRD) Af Amer 193, Est GFR (MDRD) Non-Af 160, BUN/Creatinine Ratio 34.0 H, Glucose 76, Calcium 7.9 L Microbiology: Microbiology 12/24/22 11:45 Blood Culture (Wb) - Anticubital Right Blood Culture - Preliminary No growth in 48 hours. 12/24/22 11:30 Blood Culture (Wb) - Anticubital Right Blood Culture - Preliminary No growth in 48 hours. 12/22/22 11:45 Blood Culture (Wb) - Left Hand Blood Culture - Final Staphylococcus aureus 12/22/22 11:40 Blood Culture (Wb) - Left Forearm Bacteria Detection (PCR) - Final Staphylococcus aureus 12/22/22 11:40 Blood Culture (Wb) - Left Forearm Blood Culture - Final Staphylococcus aureus 12/22/22 13:15 Urine, Catheterized Urine Culture - Final Staphylococcus aureus 12/22/22 11:35 Nasal Secretion SARS-CoV-2 & FLU Antigen (Rapid) - Final Meaningful Use Info Meaningful Use Diagnoses (Choose all that apply): None applicable Discharge Plan Admission Admit Date/Time: 12/22/22 17:50 Primary Reason for Your Visit: Methicillin sensitive staph aureus bacteremia, cellulitis Attending Provider: Tanner Farooq Primary Care Provider: Ollie Colin Consulting Providers: Tanner Farooq; Escobar Mcrae; Dennis Walker Discharge Orders/Prescriptions Prescriptions: New albuterol sulfate 2.5 mg /3 mL (0.083 %) Solution For Nebulization 2.5 mg inhalation Q2H PRN PRN (Reason: Dyspnea, wheezing) Qty: 0 0RF dexamethasone 4 mg Tablet 4 mg PO DAILY Qty: 0 0RF menthol-zinc oxide [Calmoseptine] 0.44-20.6 % Ointment 1 applic topical BID Qty: 0 0RF Protocol: *Topical Application Instructions APPLICATION INSTRUCTIONS: Apply to Coccyx Ensure Plus High Protein 0.08 gram-1.5 kcal/mL Liquid 120 ml PO 4X/DAY Qty: 0 0RF Jorge (with collagen) 7-7-1.5 gram Powder In Packet 1 packet PO BIDCM Qty: 0 0RF nystatin 100,000 unit/mL Suspension 500,000 unit PO 4X/DAY Qty: 0 0RF pantoprazole 40 mg Tablet,Delayed Release (Dr/Ec) 40 mg PO BID Qty: 1 0RF cefazolin 2 gram recon soln 2 g IV Q8H Rx Instructions: Start on 12/27/2022, continue through January 21, 2023 Continued metoprolol succinate 25 mg tablet extended release 24 hr 25 mg PO DAILY hydroxychloroquine [Plaquenil] 200 mg tablet 300 mg PO DAILY bupropion HCl [Wellbutrin XL] 150 mg tablet extended release 24 hr 150 mg PO DAILY meloxicam 15 mg tablet 15 mg PO DAILY Discontinued amlodipine 5 mg tablet 5 mg PO DAILY omeprazole 40 mg capsule,delayed release(DR/EC) 40 mg PO DAILY azelastine 137 mcg (0.1 %) aerosol,spray 137 mcg INTRANASAL BID Acidophilus Capsule 2 cap PO TID Humira(CF) Pen 40 mg/0.4 mL pen injector kit 40 mg SUBCUT Q14D fenofibrate nanocrystallized 145 mg tablet 145 mg PO DAILY albuterol sulfate [Ventolin HFA] 90 mcg/actuation HFA aerosol inhaler 1 - 2 puff INHALATION Q4H PRN (Reason: shortness of breath or wheezing) acetaminophen 500 mg tablet 1,000 - 1,500 mg PO Q6H PRN (Reason: fever or pain) Referrals / Follow Up: Ollie Colin DO [Primary Care Provider] - Disposition Disposition (needs filled in before D/C Order can be placed): [facility] Charges/Coding Visit Charges Inpatient E&M: 55324 Disch Hosp >30min
--- NOTE | 2022-12-27 17:09 | NURSING ---
report called to TCU. daughter updated on transfer
[2022-12-28 09:56] LABS: Pathologist Review Reviewed
== END 2022-12-27 17:35 | disposition skilled nursing facility (03) | DRG 871 ==
LOC: ED 14:17 → MS3 18:08 → PCU 12-23 22:58
PROVIDERS: Family Medicine; Nurse Practitioner; Admitting Provider Internal Medicine; Emergency Provider Emergency Medicine; PCP Student in an Organized Health Care Education/Training Program; Visit Provider Internal Medicine
DX: R78.81 Bacteremia (principal); E43 Unspecified severe protein-calorie malnutrition; F03.92 Unspecified dementia, unspecified severity, with psychotic disturbance; E87.1 Hypo-osmolality and hyponatremia; L03.115 Cellulitis of right lower limb; N30.00 Acute cystitis without hematuria; K74.60 Unspecified cirrhosis of liver; M06.9 Rheumatoid arthritis, unspecified; E78.5 Hyperlipidemia, unspecified; I10 Essential (primary) hypertension; F32.A Depression, unspecified; M19.071 Primary osteoarthritis, right ankle and foot; Z68.21 Body mass index [BMI] 21.0-21.9, adult; B95.61 Methicillin susceptible Staphylococcus aureus infection as the cause of diseases classified elsewhere; R13.10 Dysphagia, unspecified; Z79.1 Long term (current) use of non-steroidal anti-inflammatories (NSAID); Z79.899 Other long term (current) drug therapy; Z87.891 Personal history of nicotine dependence; Z96.643 Presence of artificial hip joint, bilateral
CPT/HCPCS: 36415; 36569; 70496; 70498; 70551; 71045; 71046; 73630; 74230; 80048; 80053; 80061; 80202; 81001; 82140; 82550; 83036; 83605; 83735; 84443; 85025; 85610; 85730; 87040; 87077; 87086; 87088; 87149; 87186; 87428; 92507; 92610; 92611; 93005; 93306; 93312; 93320; 93325; 94640; 94668; 97110; 97116; 97129; 97130; 97162; 97166; 97530; 97535; 97802; 97803; 99285; J7030; J7040; J7050; P9612; Q9967; A4216; J0295

== ENCOUNTER 2022-12-27 18:01 | Inpatient (IN) | payer MEDICARE, OTHER, SELFPAY ==
[2022-12-27 18:34] VITALS: BP 125/63; PULSE 72; RESP 18; TEMP 36.2; O2SAT 95
[2022-12-27 18:57] VITALS: BMI 21.7
--- NOTE | 2022-12-27 20:23 | HP.PCM_ITS ---
HPI - General General Date of Admission: 12/27/22 Date of Service: 12/27/22 Chief Complaint: Here for rehabilitation, intravenous antibiotics. HPI Narrative 12/22/2022 LIYA BRITT, is a 77 Female who presents to [facility] Emergency Department with generalized illness. Change in mental status, weakness, decline over month of November. More weak, confused, visual hallucinations for several days. Fever, pain, redness right foot for 3-4 days. Urine dark. UTI, right foot cellulitis, acute delirium, weakness, acute hyponatremia. 12/22/2022 Admit to Hospital. Rocephin IV for right foot cellulitis. Rocephin IV for urinary tract infection. PT/OT for SNF. Check ammonia for acute delirium, history of liver cirrhosis. Dexamethasone for rheumatoid arthritis. 12/23/2022 Vancomycin IV added for gram positive cocci in blood culture. 12/23/2022 Consult Infectious Disease for Staph Aureus bacteremia. Rocephin, Vancomycin for right foot cellulitis, urinary tract infection, staph bacteremia. 12/23/2022 CT head, CTA head/neck, MRI brain, Echo, PT/OT/ST to evaluate stroke. 12/23/2022 Echo EF 70%. Bubble study positive right to left shunt. ? aortic valve vegetation, JONO recommended. 12/24/2022 Memory decline over several years, worse recently with visual hallucinations. ID recommended Ancef for right foot cellulitis, Staph urinary tract infection, MSSA bacteremia. Decrease Dexamethasone to 4mg daily for rheumatoid arthritis. 12/25/2022 Doing well. PT/OT for SNF. MRI brain negative for stroke. 12/26/2022 JONO negative aortic valve vegetation. 12/26/2022 Repeat blood cultures negative. 12/26/2022 ID recommended Cefazolin 2gm iv q8 x 4 weeks for MSSA bacteremia. Stop date 01/21/2023. 12/27/2022 Admit to TCU with debility, here for rehabilitation, strengthening, intravenous antibiotics, prior to discharge home. [facility] Medical History (Updated 12/27/22 @ 20:[address] Alden Law MD) Asthma Depression Former smoker Hyperlipemia Hypertension Kidney stones Rheumatoid arthritis Vitreous floaters of left eye Home Medications bupropion HCl 150 mg 24 hr tablet, extended release (Wellbutrin XL) 150 mg PO DAILY MOOD 06/21/21 [History Last Taken 12/27/22] hydroxychloroquine 200 mg tablet (Plaquenil) 300 mg PO DAILY RA 06/21/21 [History Last Taken 12/22/22] metoprolol succinate 25 mg tablet,extended release 24 hr 25 mg PO DAILY BP 06/21/21 [History Last Taken 12/27/22] meloxicam 15 mg tablet 15 mg PO DAILY RA 12/22/22 [History Last Taken 12/27/22] albuterol sulfate 2.5 mg/3 mL (0.083 %) solution for nebulization 2.5 mg (3 mL) inhalation Q2H PRN PRN Dyspnea, wheezing #0 mL 12/27/22 [Rx Last Taken 12/23/22] arginine 7 gram-glutam 7 gram-CaHMB 1.5 isgp-bgikr-fm-min oral pwd pkt (Jorge (with collagen)) 1 packet PO BIDCM WOUND HEALING #0 ea 12/27/22 [Rx Last Taken 12/27/22] cefazolin 2 gram intravenous solution 2 g IV Q8H ANTIBIOTICS 12/27/22 [Rx Last Taken 12/27/22 14:05] dexamethasone 4 mg tablet 4 mg PO DAILY INFLAMMATION #0 tabs 12/27/22 [Rx Last Taken Unknown] food supplemt, lactose-reduced 0.08 gram-1.5 kcal/mL oral liquid (Ensure Plus High Protein) 120 ml PO 4X/DAY SUPPLEMENT #0 mL 12/27/22 [Rx Last Taken Unknown] menthol 0.44 %-zinc oxide 20.6 % topical ointment (Calmoseptine) 1 applic topical BID SKIN IRRITA #0 grams 12/27/22 [Rx Last Taken 12/27/22] nystatin 100,000 unit/mL oral suspension 500,000 unit (5 mL) PO 4X/DAY THRUSH #0 mL 12/27/22 [Rx Last Taken 12/27/22] pantoprazole 40 mg tablet,delayed release 40 mg PO BID ACID REFLUX #1 TAB 12/27/22 [Rx Last Taken 12/27/22] Allergy/AdvReac Type Severity Reaction Status Date / Time prednisone AdvReac Intermediate HALLUCINATI Verified 12/22/22 11:23 ONS Surgical History H/O bilateral hip replacements Social History (Updated 12/27/22 @ 20:[address] Alden Law MD) household members: none and other details: Cat Smoking Status: Former smoker alcohol intake: never substance use type: does not use ROS Constitutional Constitutional: Denies chills, fever(s) or weight gain ENT HEENT: Denies headache(s), nasal congestion or nasal discharge Cardiovascular Cardiovascular: Denies chest pain or palpitations Respiratory/Chest Respiratory/Chest: Denies cough, excessive phlegm production or shortness of br eath with exertion Gastrointestinal Gastrointestinal: Denies abdominal pain, nausea or vomiting Genitourinary Genitourinary: Denies dysuria Musculoskeletal Musculoskeletal: Denies joint pain or joint swelling Integumentary Integumentary: Denies rash or wounds Neurologic Neurologic: Denies focal weakness, numbness or tingling Psychiatric Psychiatric: Denies anxiety, auditory hallucinations, depression, homicidal ideation or suicidal ideation Vital Signs Vital Signs Vital Signs: 12/27/22 18:34 Temperature 97.1 F L Temperature Source Temporal Pulse Rate 72 Respiratory Rate 18 Blood Pressure 125/63 H Blood Pressure Mean 83 Blood Pressure Source Monitor Blood Pressure Position Semi-Fowlers Blood Pressure Location Right Arm Pulse Ox 95 Oxygen Delivery Method Room Air Physical Exam Const alert Constitutional Narrative: Confused. General Appearance: cooperative HEENT normocephalic Eyes PERRL and EOMs intact bilaterally Neck supple, no JVD and no carotid bruits Resp normal respiratory effort, normal air movement and clear to auscultation bilaterally Cardio regular rate and regular rhythm GI normal to inspection, nondistended, normoactive bowel sounds, non-tender and non-distended Extremity normal capillary refill Extremity Narrative: Left upper extremity PICC line. General Extremity: Negative for edema Skin no rashes or lesions noted General Skin Exam: no breakdown Psych affect normal Appearance: appropriate Assessment & Plan Assessment/Plan (1) Debility: (2) Acute metabolic encephalopathy: (3) Acute hyponatremia: (4) Cellulitis of right foot: (5) UTI (urinary tract infection): (6) MSSA bacteremia: (7) Allergic rhinitis: (8) GERD (gastroesophageal reflux disease): (9) Osteoarthritis: PLAN: Plan 77 year old female with below past medical history hospitalized for right foot cellulitis, staph urinary tract infection, MSSA bacteremia, complicated by acute encephalopathy, acute hyponatremia, underlying dementia with visual hallucinations, admitted to TCU with debility, here for rehabilitation, strengthening, intravenous antibiotics, prior to discharge home. * Debility - PT/OT. * Dysphagia - ST. * Pain - Tylenol 1000mg q6h prn pain (1-10). * Bowel - senna/colace 1 tablet bid, Magnesium citrate 300ml po x 1 prn. * Adult immunization - Administer pneumonia vaccine, covid19 vaccine, flu vaccine as appropriate. * DVT prophylaxis - Lovenox 40mg sc daily. * Asthma - Albuterol 2.5mg nebulized q2h prn. * Depression - Bupropion XL 150mg daily. * MSSA bacteremia - Cefazolin 2gm iv q8 thru 01/21/2023, consult ID to follow. * Rheumatoid arthritis - Plaquenil 300mg daily, Meloxicam 15mg daily, Dexamethasone 4mg daily. * Nutrition - Ensure High Protein 120ml 4x/day, Jorge 1 packet bidcm. * Skin irritation - Calmoseptine topical bid. * Hypertension - Metoprolol succinate 25mg daily. * Thrush - Nystatin 500,000 4x/day x 10 days. * GERD - Pantoprazole 40mg bid.
--- NOTE | 2022-12-27 21:03 | RAD_ITS ---
INDICATION: Verify PICC placement EXAMINATION/TECHNIQUE: X-RAY - XR Chest 1 View COMPARISON: 12/24/2022 FINDINGS: LUNGS: Bilateral lung infiltrates. Right pleural effusion with overlying atelectasis. MEDIASTINUM AND CARDIOVASCULAR STRUCTURES: Cardiac silhouette not enlarged. Central airways and mediastinal contour are unremarkable. RAD/Chest 1 View IMPRESSION: Left upper extremity PICC terminates over the lower SVC. Similar bilateral lung infiltrates and right pleural effusion with overlying atelectasis Electronically Signed: Elver Scott MD at 21:36 EDT ,
--- NOTE | 2022-12-27 21:03 | NURSING ---
Discussed code status with patient, patient A&Ox4 to person,place, time, situation. Patient able to voice wants and needs. Patient states wants code status DNRCC, patient states I had to see my suffer through a code 2 years ago, I don't want that for me, I want DNRCC. Patient states she has provided living will and power of family law attorney paper work to [facility] a while back. CHest xray ordered per Dr. Law to verify PICC placement, PICC was place to LUE dual Lumen on acute side prior to admission this date.
--- NOTE | 2022-12-27 21:06 | NURSING ---
Radiology on unit at this time to complete chest xray as ordered
--- NOTE | 2022-12-27 22:10 | NURSING ---
Reviewed chest xray result with via telephone, compared with last chest xray result on 12/24/22. New order received for chest CT scan without contrast non-emergent, may compete on 12/28/22
[2022-12-27] MEDS: Cefazolin 2 GM in 0.9% Normal Saline 100 ML IV (22:57)
[2022-12-27] MEDS: 0.9% Saline Lock 10 ML Syringe IV (22:57)
[2022-12-27] MEDS: Pantoprazole Sodium 40 MG Tablet PO (22:59)
[2022-12-27] MEDS: NYSTATIN 500,000 UNIT/5 ML UDC 500000 UNIT PO (22:59)
[2022-12-27] MEDS: Ensure Plus High Protein 120 ML LIQUID PO (22:59)
[2022-12-27] MEDS: Senna/Docusate Sodium 1 Tablet PO (22:59)
[2022-12-27 23:00] VITALS: PULSE 70; RESP 18; O2SAT 97; BMI 22.4
[2022-12-27] MEDS: Menthol/Lanolin/Calamine/Znox 113 GM Tube 1 APPLIC TOPICAL (23:05)
[2022-12-27 23:55] VITALS: PULSE 71; RESP 18; O2SAT 96
[2022-12-27] MEDS: Albuterol 2.5 MG/3 ML VIAL.NEB. INHALATION (23:55)
[2022-12-28] VITALS (8 sets, daily range): BP systolic 114–119; BP diastolic 66–67; PULSE 71–77; RESP 14–21; TEMP 36.6; O2SAT 93–96
[2022-12-28] MEDS: 0.9% Saline Lock 10 ML Syringe IV ×5 (00:09→23:26)
--- NOTE | 2022-12-28 03:54 | NURSING ---
patient received swallow study on 12/27/22 prior to admit to TCU, patient reports difficulty swallowing at times, no difficulty observed this shift. Patient reports losing 30lbs since having covid a while back, reports my I used to weigh around 157 pounds, current weight 122.7 lb. Patient reports poor appetite due to no taste. ST order in place. Written communication left for Dr. Law.
[2022-12-28 05:44] LABS: Absolute Neutrophil Count 7.3 X10^3/uL (2.0-7.7); Basophil# 0.02 X10^3/uL; Basophil% 0.2 % (0-1); Eosinophil# 0.13 X10^3/uL; Eosinophils% 1.2 % (0-5); Hematocrit 33.8 % (37-47); Hemoglobin 11.9 g/dL (12.0-15.0); Lymphocyte % 16.6 % (19-41); Mean Corp Hgb Conc 35.2 g/dL (32-36); Mean Corpuscular Hgb 37.5 pg (27.0-32.0); Mean Corpuscular Volume 106.6 fL (81-99); Mean Platelet Vol. 10.4 fl (6.2-12.0); Monocyte# 1.46 X10^3/uL; Monocyte% 13.4 % (0-10); NRBC Flagged by Analyzer 0 % (0-5); Neutrophil # 7.32 X10^3/uL (2.7-7.7); Neutrophil % 67.3 % (47-70); Platelet Count 202 K/mm3 (150-450); RBC Distribution Width SD 54.8 fl (35.1-43.9); Red Blood Count 3.17 M/mm3 (4.2-5.4); White Blood Count 10.9 K/mm3 (4.4-11.0)
[2022-12-28] MEDS: Cefazolin 2 GM in 0.9% Normal Saline 100 ML IV ×3 (05:58→22:23)
[2022-12-28] MEDS: Menthol/Lanolin/Calamine/Znox 113 GM Tube 1 APPLIC TOPICAL ×2 (05:58→17:04)
[2022-12-28] MEDS: Ensure Plus High Protein 120 ML LIQUID PO ×4 (06:08→22:23)
[2022-12-28] MEDS: buPROPion (XL) 150 MG TABLET.XL PO (06:08)
[2022-12-28] MEDS: Enoxaparin 40 MG/0.4 ML Syringe SC (06:08)
[2022-12-28] MEDS: Pantoprazole Sodium 40 MG Tablet PO ×2 (06:09→17:02)
[2022-12-28] MEDS: Senna/Docusate Sodium 1 Tablet PO (06:09)
[2022-12-28] MEDS: Meloxicam 15 MG Tablet PO (06:09)
[2022-12-28] MEDS: Metoprolol(XL)Succ 25 MG Tablet PO (06:09)
[2022-12-28] MEDS: NYSTATIN 500,000 UNIT/5 ML UDC 500000 UNIT PO ×4 (06:10→22:29)
[2022-12-28 07:56] LABS: ALB/GLOB Ratio 0.4 RATIO (0.9-2.4); AST(SGOT) 180 U/L (15-37); Alanine Aminotransfer ALT/SGPT 81 U/L (13-56); Albumin, Serum 1.7 g/dL (3.2-5.0); Alkaline Phosphatase 326 U/L (45-117); Anion Gap 6 (5-15); BUN 16 mg/dL (7-18); BUN/Creat Ratio 46.1 RATIO (10-20); Calcium,Total 8.1 mg/dL (8.5-10.1); Chloride 106 mmol/L (98-107); Creatinine, Serum 0.35 mg/dL (0.55-1.02); EST Glomerular Filtration Rate 195 mL/min (>60); Est Glom Filt Rate - Afr Amer 236 mL/min (>60); Estimated Creatinine Clearance 38.44 ml/min; Globulin 4.1 g/dL (2.2-4.2); Glucose 67 mg/dL (74-106); Potassium 3.6 mmol/L (3.5-5.1); Protein, Total 5.8 g/dL (6.4-8.2); Sodium Level 138 mmol/L (136-145)
[2022-12-28] MEDS: Juven (unflavored) Packet 1 PACKET PO (08:31)
[2022-12-28] MEDS: Hydroxychloroquine 200 MG Tablet 300 MG PO (08:32)
[2022-12-28] MEDS: dexAMETHasone 4 MG Tablet PO (09:31)
[2022-12-28] MEDS: Albuterol 2.5 MG/3 ML VIAL.NEB. INHALATION (10:01)
--- NOTE | 2022-12-28 10:13 | NURSING ---
PT REQUESTING SLEEP STUDY ON DISCHARGE, STATES PRIOR MD TOLD HER SHE MAY NEED A CPAP. DR JONES UDPATED, NEW ORDER FOR TRENDING OVERNIGHT PULSE OX. REMERON ALSO STARTED FOR POOR APPETITE, WT LOSS OF 30 LBS SINCE HAVING COVID.
--- NOTE | 2022-12-28 11:06 | NURSING ---
Batter Depositor Note; Activity Asset: Demetra Tubbs is independent in her choice of daily activities. At this time she prefers to do independent activities such as us her table and smartphone or watch tv when not resting or visiting w/family, friends or clergy. She did state she welcomes visit from the therapy dog and Recycling Worker. Staff will remind her of the daily activities and respect her right to say no.
--- NOTE | 2022-12-28 12:07 | PHA.CONS_ITS ---
TCU RX Drug Regimen Review Subjective/Objective Subjective/Objective: Subjective: TCU Admit. 77 YOF presented to [facility] ED on 12/22 and was admitted for right foot cellulitis, delirium, weakness. Admitted to TCU on 12/27 for strengthening, rehabilitation, and IV antibiotics prior to discharge home.? Objective: Allergies prednisone Adverse Reaction (Intermediate, Verified 12/22/22 11:23) HALLUCINATIONS Current Medications Generic Name Dose Route Start Last Admin Trade Name Freq PRN Reason Stop Dose Admin Acetaminophen 1,000 mg 12/27/22 20:42 Acetaminophen 500 Mg Tablet PO Q6H PRN PRN Pain Score 1-10 Albuterol Sulfate 2.5 mg 12/27/22 20:01 12/28/22 10:01 Albuterol 2.5 Mg/3 Ml Vial.Neb. INHALATION 2.5 mg Q2H PRN PRN Administration Dyspnea, wheezing Bupropion HCl 150 mg 12/28/22 06:00 12/28/22 06:08 Bupropion (Xl) 150 Mg Tablet.Xl PO 150 mg DAILY CHEVY Administration Calamine/Phenol 1 applic 12/27/22 20:10 12/28/22 05:58 Menthol/Lanolin/Calamine/Znox 113 Gm Tube TOPICAL 1 applic BID CHEVY Administration Protocol Dexamethasone 4 mg 12/28/22 08:00 12/28/22 09:31 Dexamethasone 4 Mg Tablet PO 4 mg DAILYCM CHEVY Administration Enoxaparin Sodium 40 mg 12/28/22 06:00 12/28/22 06:08 Enoxaparin 40 Mg/0.4 Ml Syringe SC 40 mg DAILY@0600 CHEVY Administration Heparin Sodium (Beef Lung) 50 units 12/27/22 18:40 Heparin Pf Lock 10 Units/Ml 50 Units/5 Ml Syringe IV UD PRN PICC Line Heparin Flush Hydroxychloroquine Sulfate 300 mg 12/28/22 08:00 12/28/22 08:32 Hydroxychloroquine 200 Mg Tablet PO 300 mg DAILYCM CHEVY Administration Sodium Chloride 250 mls @ 15 mls/hr 12/27/22 18:37 12/28/22 00:00 IV 0 mls/hr .[id number] PRN Infusion Additional IVPB Infusion Sodium Chloride 250 mls @ 15 mls/hr 12/27/22 18:37 IV .[id number] PRN Saline Flush Sodium Chloride 250 mls @ 15 mls/hr 12/27/22 18:40 IV .[id number] PRN Additional IVPB Infusion Sodium Chloride 250 mls @ 15 mls/hr 12/27/22 18:40 IV .[id number] PRN Saline Flush Cefazolin Sodium 2 gm/ Sodium 110 mls @ 150 mls/hr 12/27/22 22:00 12/28/22 07:02 Chloride IV 01/21/23 22:00 Infused Q8 CHEVY Infusion L-Arginine/L-Glutamine/Calcium HMB 1 packet 12/28/22 08:00 12/28/22 08:31 Jorge (Unflavored) Packet PO 1 packet BIDCM CHEVY Administration Magnesium Citrate 300 ml 12/27/22 20:42 Magnesium Citrate 300 Ml PO X1 PRN CONSTIPATION Meloxicam 15 mg 12/28/22 06:00 12/28/22 06:09 Meloxicam 15 Mg Tablet PO 15 mg DAILY CHEVY Administration Metoprolol Succinate 25 mg 12/28/22 06:00 12/28/22 06:09 Metoprolol(Xl)Succ 25 Mg Tablet PO 25 mg DAILY CHEVY Administration Mirtazapine 7.5 mg 12/28/22 22:00 Mirtazapine 15 Mg Tablet PO QHS CHEVY Nutritional Formula (Lactose Free) 120 ml 12/27/22 22:00 12/28/22 06:08 Ensure Plus High Protein 120 Ml Liquid PO 120 ml 4X/DAY CHEVY Administration Nystatin 500,000 unit 12/27/22 22:00 12/28/22 06:10 Nystatin 500,000 Unit/5 Ml Udc PO 01/06/23 22:01 500,000 unit 4X/DAY CHEVY Administration Pantoprazole Sodium 40 mg 12/27/22 20:15 12/28/22 06:09 Pantoprazole Sodium 40 Mg Tablet PO 40 mg BID CHEVY Administration Senna/Docusate Sodium 1 tablet 12/27/22 20:45 12/28/22 06:09 Senna/Docusate Sodium 1 Tablet PO 1 tablet BID CHEVY Administration Sodium Chloride 10 - 40 ml 12/27/22 18:37 12/28/22 05:58 0.9% Saline Lock 10 Ml Syringe IV 10 ml UD PRN Administration SALINE FLUSH Sodium Chloride 10 - 40 ml 12/27/22 18:40 0.9 % Nacl (Sterile) Posiflush 10 Ml IV UD PRN Port access or dressing change Sodium Chloride 10 - 40 ml 12/27/22 18:40 0.9% Saline Lock 10 Ml Syringe IV UD PRN Open End PICC Flush Tuberculin PPD 0.1 ml 01/04/23 10:00 Tuberculin,Purif.Prot.Deriv. 50 Tu/Ml Vial ID 01/04/23 10:01 X1 ONE Problem List (Updated 12/27/22 @ 20:[address] Alden Law MD) Osteoarthritis (Acute) GERD (gastroesophageal reflux disease) (Acute) Allergic rhinitis (Acute) MSSA bacteremia (Acute) Cellulitis of right foot (Acute) Debility (Acute) Acute hyponatremia (Acute) Acute metabolic encephalopathy (Acute) UTI (urinary tract infection) (Acute) Vital Signs Temp Pulse Resp BP Pulse Ox O2 Del Method O2 Flow Rate 97.1 F L 77 21 H 119/66 95 Nasal Cannula 2 12/27/22 18:34 12/28/22 10:07 12/28/22 10:07 12/28/22 06:09 12/28/22 08:21 12/28/22 08:21 12/28/22 11:11 Oxygen Flow Rate (L/min) 2 Oxygen Delivery Method Nasal Cannula Weight: 55.537 kg Body Mass Index (BMI) 22.4 Sodium 138 mmol/L (136-145) 12/28/22 05:17 Potassium 3.6 mmol/L (3.5-5.1) 12/28/22 05:17 Chloride 106 mmol/L (98-107) 12/28/22 05:17 Carbon Dioxide 26.0 mmol/L (21.0-32.0) 12/28/22 05:17 Anion Gap 6 (5-15) 12/28/22 05:17 BUN 16 mg/dL (7-18) 12/28/22 05:17 Creatinine 0.35 mg/dL (0.55-1.02) L 12/28/22 05:17 Est GFR (MDRD) Af Amer 236 mL/min (>60) 12/28/22 05:17 Est GFR (MDRD) Non-Af 195 mL/min (>60) 12/28/22 05:17 BUN/Creatinine Ratio 46.1 RATIO (10-20) H 12/28/22 05:17 Glucose 67 mg/dL (74-106) L 12/28/22 05:17 Assessment/Plan: 1. Pain: Tylenol 1000mg PO Q6H PRN pain (1-10). Please continue to monitor pain, PRN medication use. Pt has hadzero doses of tylenol to date, pain appears managed at this time. 2. Bowel : senna/colace 1 T PO BID, Magnesium citrate 300ml PO x 1 PRN constipation. Please continue to monitor for increased/decreased constipation/diarrhea, PRN medication use. Pt has had zero doses of magnesium citrate to date - Pt has had zero bowel movements to date. Please consider administering PRN medication if no bowel movement in 2 days 3. DVT prophylaxis - Lovenox 40mg SC daily. Please continue to monitor for s/s of DVT, increased bleeding/bruising, H & H (Hgb: 11.9, Hct: 33.8 on 12/28), Renal function (last Scr: 0.35, CrCl: 38.44 on 12/28). 4. Asthma: Albuterol 2.5mg via nebulizer Q2H PRN SOB, wheezing. Please continue to monitor SOB and wheezing, potassium (last 3.6 on 12/28), PRN medication use. Pt has had 2 doses of albuterol to date. 5. MSSA bacteremia: Cefazolin 2gm IV Q8H thru 01/21/2023. Please continue to monitor s/s of worsening infection, WBC (last 10.9 on 12/28), Renal function (last Scr: 0.35, CrCl: 38.44 on 12/28), increased nausea/vomiting, new microbiology culture data as applicable 6. Rheumatoid arthritis: Plaquenil 300mg PO daily, Meloxicam 15mg PO daily, Dexamethasone PO 4mg daily. Please continue to monitor for vision changes, Stomach pain/Ulcer (Meloxicam BEERs critera), Delirium (dexamethasone BEERs criteria), osteoporosis, Hyperglycemia (BG 76 on 12/28), hypertension (BP 119/66 on 12/28). 7. Hypertension - Metoprolol succinate 25mg PO daily. Please continue to monitor BP (BP 119/66 on 12/28), HR (71-77) 8. Thrush: Nystatin 500,000 PO 4x/day x 10 days. Please continue to monitor for worsening thrush, increased nausea/vomiting, increased diarrhea 9. GERD - Pantoprazole 40mg PO BID. Please continue to monitor s/s of GERD. Please also encourage non-pharmacologic therapies to help minimize exacerbations. 10. Skin integrity: Calmoseptine topically BID. Please continue to monitor itching, s/s of skin irritation, redness, s/s ulcer formations 11. Insomnia: Mirtazapine 7.5mg QHS. Please continue to monitor for over sedation, Hyponatremia (BEERs criteria) (last sodium: 138), worsening insomnia.? Assessment/Plan for indications treated with psychotropic medications: 12. Depression: Bupropion XL 150mg daily. Please consider GDR by 07/17. Please continue to monitor mental status, s/s of worsening depression, seizures, suicidal ideation (Black box warning). Medical chart and medication regimen reviewed. The following medication irregularities or issues were identified: N/A Date Date of Note:: 12/28/22
[2022-12-28] MEDS: Tuberculin,Purif.prot.deriv. 50 TU/ML Vial 0.1 ML ID (12:17)
--- NOTE | 2022-12-28 13:03 | NURSING ---
dr maier notified of CT scan results, new order to call make appt with education supervisor, marichuy chaves. pt sat 93% on oxygen 3 liters. continues with harsh cough. daughter here and updated. 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's
--- NOTE | 2022-12-28 14:14 | CASEMGMT ---
Addendum entered by Carmel Alcantara 12/28/22 15:10: Dtr present in pt room while pt was in therapy gym. SW introduced self and role. Educated to Medicare benefit. Encouraged to contact secondary insurance to ensure copay coverage. SW had provided community resources to pt's CARMELO, a coworker prior to admission, and dtr confirmed she still has those - PRESSURIZER, medical alert, [place], MOW. Dtr to provide copies of completed advanced directives. Explained Dr ordered palliative referral. This worker sent referral via email to [facility]. Dtr appreciative and will await phone call. SW noted pt's alcohol use and how pt would like to continue sobriety at [place], agreed to counseling, and encouraged dtr to remove all alcohol from pt's home. Dtr states that has already been done and appreciative of securing counseling appt at [place]. Pt has POC mtg scheduled next week. Offered ongoing assistance. Dtr appreciative. Will continue to follow. Original Note: Social Work Met with patient to complete initial assessment. Introduced self and role. Discussed code status and MOLST form. Pt confirmed DNR-CC. MOLST placed in Dr folder. Educated to Medicare benefit. Encouraged to contact secondary insurance to ensure copay coverage. pt's goal is to DC home alone, however, pt acknowledged she was struggling at home prior and needing a lot of assistance from dtr. SW offered ongoing assistance with DC planning. See SW assessment for alcohol and mental health history. VESTA left voicemail with counselor to schedule appt at [place]. Carmel Alcantara, CRISSY WHITEW
[2022-12-28] MEDS: Acetaminophen 500 MG Tablet 1000 MG PO (14:29)
--- NOTE | 2022-12-28 14:53 | CHAPLAIN ---
Type of Pastoral Visit ___ Initial Visit _x__ Follow-up Visit ___ On-call Visit ___ General Patient Visit ___ Spiritual Assessment ___ Family Conference ___ Bereavement ___ Rapid Response ___ Code Blue ___ Other (describe below) Pastoral Care Referral From _x__ Patient ___ Family ___ Nurse ___ Physician ___ Coordinating Producer ___ Heating Element Repairer ___ Other (describe below) Sacrament/Intervention _x__ Active listening ___ Anointing ___ Yarsanism ___ Bereavement ___ Communion ___ Cori exploration ___ ___ Life review _x__ Prayer ___ Reconciliation ___ Sacrament of Sick ___ Supportive presence ___ Wedding ___ Other (describe below) Pastoral Comments patient was met earlier this week in PCU; pt still has some issues coughing and doesn't have ability to speak well; daughter is in the room and welcoming again; pt is 'just getting started in therapy so not sure yet about how it will be; pt admits gratitude for daughter's support; pt is asked about her coping and she is not sure yet; offer of future visits given
[2022-12-28] MEDS: Ipratropium/Albuterol Sulfate 3 ML AMPUL.NEB INHALATION (20:30)
--- NOTE | 2022-12-28 22:06 | NURSING ---
Addendum entered by Mark Real 12/29/22 00:03: Respiratory contacted, notified patient O2 dropping to 77% at rest, patient wanting to ambulate to bathroom at this time and O2 needed to be reapplied, per respiratory continue overnight trend with 2L O2 applied. No resp distress observed or reported. Original Note: RESPIRATORY ON UNIT, OVERNIGHT PULSE OX SET-UP, INSTRUCTED TO CONTACTED RESP DEPT IF O2 NEEDS RE-APPLIED THROUGHT THE NIGHT
[2022-12-28] MEDS: Mirtazapine 15 MG Tablet 7.5 MG PO (22:30)
[2022-12-29] VITALS (9 sets, daily range): BP systolic 116–134; BP diastolic 69–76; PULSE 74–85; RESP 18–25; TEMP 36.4; O2SAT 77–94
[2022-12-29] MEDS: Ensure Plus High Protein 120 ML LIQUID PO ×3 (06:15→17:02)
[2022-12-29] MEDS: Cefazolin 2 GM in 0.9% Normal Saline 100 ML IV ×3 (06:15→23:29)
[2022-12-29] MEDS: 0.9% Saline Lock 10 ML Syringe IV ×2 (06:16→13:39)
[2022-12-29] MEDS: Menthol/Lanolin/Calamine/Znox 113 GM Tube 1 APPLIC TOPICAL ×2 (06:16→17:02)
[2022-12-29] MEDS: Meloxicam 15 MG Tablet PO (06:25)
[2022-12-29] MEDS: Senna/Docusate Sodium 1 Tablet PO (06:25)
[2022-12-29] MEDS: Metoprolol(XL)Succ 25 MG Tablet PO (06:25)
[2022-12-29] MEDS: Pantoprazole Sodium 40 MG Tablet PO ×2 (06:25→17:02)
[2022-12-29] MEDS: Enoxaparin 40 MG/0.4 ML Syringe SC (06:25)
[2022-12-29] MEDS: NYSTATIN 500,000 UNIT/5 ML UDC 500000 UNIT PO ×4 (06:25→23:30)
[2022-12-29] MEDS: buPROPion (XL) 150 MG TABLET.XL PO (06:26)
[2022-12-29] MEDS: Ipratropium/Albuterol Sulfate 3 ML AMPUL.NEB INHALATION ×3 (07:11→19:45)
[2022-12-29] MEDS: Hydroxychloroquine 200 MG Tablet 300 MG PO (08:11)
[2022-12-29] MEDS: Juven (unflavored) Packet 1 PACKET PO (08:11)
[2022-12-29] MEDS: dexAMETHasone 4 MG Tablet PO (08:11)
--- NOTE | 2022-12-29 13:36 | CPS ---
When this RT walked into room pt started having a coughing fit. RT asked if there was something they could do but family said it has to pass. RT looked at pulse ox and pt was 83% because of the coughing fix. Rn is aware. Rt gave pt breathing treatment to see if it would help. Helped a little. Able to get pulse ox back up to 94%. Pt not coughing nearly as bad
[2022-12-29] MEDS: Acetaminophen 500 MG Tablet 1000 MG PO (13:39)
--- NOTE | 2022-12-29 23:17 | CPS ---
Patient was 85% on 4L Oxygen when RT entered patient room. Patient having frequent coughing spells which decreased her Oxygen. RT requested cough syrup to RN. RT switched patient to a high flow NC and increased oxygen to 10L.
[2022-12-29] MEDS: Mirtazapine 15 MG Tablet 7.5 MG PO (23:31)
[2022-12-30] VITALS (8 sets, daily range): BP systolic 112–129; BP diastolic 72–91; PULSE 68–86; RESP 18–20; TEMP 36; O2SAT 84–96
[2022-12-30] MEDS: Albuterol 2.5 MG/3 ML VIAL.NEB. INHALATION (02:44)
--- NOTE | 2022-12-30 04:50 | NURSING ---
ROUTE SALESMAN AND DRIVER reports pt c/o lightheadedness while on toilet. Vitals obtained and recorded. Orthos negative from sitting to standing. Pt's primary c/o is being shaky. WIll continue to monitor.
[2022-12-30] MEDS: Ensure Plus High Protein 120 ML LIQUID PO ×4 (04:58→19:55)
[2022-12-30] MEDS: Enoxaparin 40 MG/0.4 ML Syringe SC (04:59)
[2022-12-30] MEDS: Metoprolol(XL)Succ 25 MG Tablet PO (04:59)
[2022-12-30] MEDS: Pantoprazole Sodium 40 MG Tablet PO ×2 (05:00→17:06)
[2022-12-30] MEDS: Meloxicam 15 MG Tablet PO (05:00)
[2022-12-30] MEDS: Menthol/Lanolin/Calamine/Znox 113 GM Tube 1 APPLIC TOPICAL ×2 (05:01→17:05)
[2022-12-30] MEDS: buPROPion (XL) 150 MG TABLET.XL PO (05:01)
[2022-12-30] MEDS: Ipratropium/Albuterol Sulfate 3 ML AMPUL.NEB INHALATION ×3 (06:48→19:44)
[2022-12-30] MEDS: NYSTATIN 500,000 UNIT/5 ML UDC 500000 UNIT PO ×4 (07:05→23:12)
[2022-12-30] MEDS: Cefazolin 2 GM in 0.9% Normal Saline 100 ML IV ×3 (07:07→23:12)
[2022-12-30] MEDS: 0.9% Saline Lock 10 ML Syringe IV ×4 (07:07→23:16)
[2022-12-30 08:03] LABS: ALB/GLOB Ratio 0.4 RATIO (0.9-2.4); AST(SGOT) 134 U/L (15-37); Alanine Aminotransfer ALT/SGPT 58 U/L (13-56); Albumin, Serum 1.7 g/dL (3.2-5.0); Alkaline Phosphatase 348 U/L (45-117); Anion Gap 3 (5-15); BUN 16 mg/dL (7-18); BUN/Creat Ratio 34.7 RATIO (10-20); Calcium,Total 8.5 mg/dL (8.5-10.1); Chloride 106 mmol/L (98-107); Creatinine, Serum 0.46 mg/dL (0.55-1.02); EST Glomerular Filtration Rate 140 mL/min (>60); Est Glom Filt Rate - Afr Amer 170 mL/min (>60); Estimated Creatinine Clearance 38.44 ml/min; Globulin 4.4 g/dL (2.2-4.2); Glucose 96 mg/dL (74-106); Protein, Total 6.1 g/dL (6.4-8.2); Sodium Level 137 mmol/L (136-145)
[2022-12-30] MEDS: Hydroxychloroquine 200 MG Tablet 300 MG PO (08:42)
[2022-12-30] MEDS: dexAMETHasone 4 MG Tablet PO (08:42)
--- NOTE | 2022-12-30 13:26 | CPS ---
PT INCREASED TO 10 LPM. NURSE AWARE OF CHANGE
[2022-12-30] MEDS: Acetaminophen 500 MG Tablet 1000 MG PO (19:56)
[2022-12-30] MEDS: Benzonatate 100 MG Capsule 200 MG PO (23:10)
[2022-12-30] MEDS: Mirtazapine 15 MG Tablet 7.5 MG PO (23:13)
[2022-12-30] MEDS: guaiFENesin/Codeine 5 ML UDC 10 ML PO (23:18)
[2022-12-31] MEDS: Albuterol 2.5 MG/3 ML VIAL.NEB. INHALATION (03:18)
[2022-12-31 03:21] VITALS: PULSE 71; RESP 18; O2SAT 89
[2022-12-31 06:20] VITALS: BP 126/80; PULSE 83; O2SAT 64
--- NOTE | 2022-12-31 06:20 | NURSING ---
Pt lying supine in bed w/ O2 at 10 lpm via nc. Awoke in attempt to obtain vitals and administer am meds. Assisted pt to standing. Pt verbalizes the need to void. SpO2 checked. Sats range in the mid 60s. Pt is performing purse-lipped breathing exercises. Sats increase to the low 70s. Sats are the labile ranging from the low 60s-high 70s. Respiratory therapy called to update. Questioned if pt should be sent to the ED or be assessed by their staff. RT notes she will come to unit. RT to the unit within minutes to assess. Aerosol tx administered. Pt then transitioned to airvo. Thanh Flores updated on unit and pt sent to ED for eval.
[2022-12-31 06:33] VITALS: PULSE 81; RESP 24; RESP 45; O2SAT 92
--- NOTE | 2022-12-31 06:33 | CPS ---
Sats were 74% on 12lpm when RT entered room, turned to 14lpm and put aerosol on O2. SpO2 after is 84%. Pt sitting at side of bed, warm fingers, SOB. at 0700 Started Airvo at 45lpm at 80% which brought SpO2 to 92%, pt comfortable and was able to lay back in bed. informed hourly shift manager and day shift RNs about this change.
--- NOTE | 2022-12-31 07:52 | NURSING ---
Pt sent to E.R.per Dr. Law d/t decreased Spo2. Family updated and report called.
--- NOTE | 2022-12-31 10:33 | PCM.DC.SUM ---
Providers Date of Admission: 12/27/22 Primary Care Physician: Dr. Ollie Colin, Consultations 12/27/22 20:42 Consult: Infectious Disease Routine Consulting Provider: Santana Quan Reason for Consult: MSSA bacteremia. 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 Routine Comment: Reason for Consult:: coccyx wound, cellulitis right foot Reason For Visit: CELLULITIS RIGHT FOOT, DEBILITY, ACUTE CYST Diagnosis Discharge Diagnosis (1) Debility: Status: Acute Code(s): R53.81 - Other malaise (2) Acute metabolic encephalopathy: Status: Acute Code(s): G93.41 - Metabolic encephalopathy (3) Acute hyponatremia: Status: Acute Code(s): E87.1 - Hypo-osmolality and hyponatremia (4) Cellulitis of right foot: Status: Acute Code(s): L03.115 - Cellulitis of right lower limb (5) UTI (urinary tract infection): Status: Acute Code(s): N39.0 - Urinary tract infection, site not specified (6) MSSA bacteremia: Status: Acute Code(s): R78.81 - Bacteremia; B95.61 - Methicillin susceptible Staphylococcus aureus infection as the cause of diseases classified elsewhere (7) Allergic rhinitis: Status: Acute Code(s): J30.9 - Allergic rhinitis, unspecified (8) GERD (gastroesophageal reflux disease): Status: Acute Code(s): K21.9 - Gastro-esophageal reflux disease without esophagitis (9) Osteoarthritis: Status: Acute Code(s): M19.90 - Unspecified osteoarthritis, unspecified site Plan 77 year old female with below past medical history hospitalized for right foot cellulitis, staph urinary tract infection, MSSA bacteremia, complicated by acute encephalopathy, acute hyponatremia, underlying dementia with visual hallucinations, admitted to TCU with debility, here for rehabilitation, strengthening, intravenous antibiotics, prior to discharge home. Debility - PT/OT. Dysphagia - ST. Pain - Tylenol 1000mg q6h prn pain (1-10). Bowel - senna/colace 1 tablet bid, Magnesium citrate 300ml po x 1 prn. Adult immunization - Administer pneumonia vaccine, covid19 vaccine, flu vaccine as appropriate. DVT prophylaxis - Lovenox 40mg sc daily. Asthma - Albuterol 2.5mg nebulized q2h prn. Depression - Bupropion XL 150mg daily. MSSA bacteremia - Cefazolin 2gm iv q8 thru 01/21/2023, consult ID to follow. Rheumatoid arthritis - Plaquenil 300mg daily, Meloxicam 15mg daily, Dexamethasone 4mg daily. Nutrition - Ensure High Protein 120ml 4x/day, Jorge 1 packet bidcm. Skin irritation - Calmoseptine topical bid. Hypertension - Metoprolol succinate 25mg daily. Thrush - Nystatin 500,000 4x/day x 10 days. GERD - Pantoprazole 40mg bid. Medications at Discharge Home Medications bupropion HCl 150 mg 24 hr tablet, extended release (Wellbutrin XL) 150 mg PO DAILY MOOD 06/21/21 hydroxychloroquine 200 mg tablet (Plaquenil) 300 mg PO DAILY RA 06/21/21 metoprolol succinate 25 mg tablet,extended release 24 hr 25 mg PO DAILY BP 06/21/21 meloxicam 15 mg tablet 15 mg PO DAILY RA 12/22/22 albuterol sulfate 2.5 mg/3 mL (0.083 %) solution for nebulization 2.5 mg (3 mL) inhalation Q2H PRN PRN Dyspnea, wheezing #0 mL 12/27/22 arginine 7 gram-glutam 7 gram-CaHMB 1.5 [id number]-min oral pwd pkt (Jorge (with collagen)) 1 packet PO BIDCM WOUND HEALING #0 ea 12/27/22 cefazolin 2 gram intravenous solution 2 g IV Q8H ANTIBIOTICS 12/27/22 dexamethasone 4 mg tablet 4 mg PO DAILY INFLAMMATION #0 tabs 12/27/22 food supplemt, lactose-reduced 0.08 gram-1.5 kcal/mL oral liquid (Ensure Plus High Protein) 120 ml PO 4X/DAY SUPPLEMENT #0 mL 12/27/22 menthol 0.44 %-zinc oxide 20.6 % topical ointment (Calmoseptine) 1 applic topical BID SKIN IRRITA #0 grams 12/27/22 nystatin 100,000 unit/mL oral suspension 500,000 unit (5 mL) PO 4X/DAY THRUSH #0 mL 12/27/22 pantoprazole 40 mg tablet,delayed release 40 mg PO BID ACID REFLUX #1 TAB 12/27/22 Hospital Course Operations None Procedures None Summary of Care Provided Minutes Spent on Discharge: 30 Hospital Course: 77 year old female with below past medical history hospitalized for right foot cellulitis, staph urinary tract infection, MSSA bacteremia, complicated by acute encephalopathy, acute hyponatremia, underlying dementia with visual hallucinations, admitted to TCU with debility, here for rehabilitation, strengthening, intravenous antibiotics, prior to discharge home. 12/28/2022 CT chest 1. Bilateral interstitial and alveolar opacities with areas of interstitial septal thickening, crazy paving, and some peripheral fibrosis in the costophrenic angles. Small right pleural effusion. Broad differential including acute interstitial pneumonia, drug induced pneumonitis, pulmonary alveolar proteinosis, atypical infections, cryptogenic organizing pneumonia. Recommend pulmonology follow-up. 2. Small amount of ascites adjacent to the liver. 12/31/2022 Resident with respiratory distress, on AIRVO, transfer to [facility] ED for evaluation, possible admission to hospital. Physical Exam Const alert General Appearance: cooperative HEENT normocephalic Eyes PERRL and EOMs intact bilaterally Neck supple, no JVD and no carotid bruits Resp Effort and Inspection: respiratory distress and uses accessory muscles Auscultation: crackles, rhonchi and wheezes Cardio regular rate and regular rhythm GI normal to inspection, nondistended, normoactive bowel sounds, non-tender and non-distended Extremity normal capillary refill General Extremity: Negative for edema Skin no rashes or lesions noted General Skin Exam: no breakdown Psych affect normal Appearance: appropriate Medical Records Data Medical Nutrition Assessment Dietitian: Malnutrition Criteria Met Start: 12/28/22 16:50 Freq: Status: Active Protocol: Document 12/28/22 16:50 SANDY (Rec: 12/28/22 16:50 [facility] [id number]) Nutrition Malnutrition Evidence of Malnutrition Exists Yes Evidenced By Suboptimal Energy Intake ( Severe),Weight Loss (Severe), Physical Changes (Moderate) Clinical Problem Acute Disease or Injury Related Malnutrition Etiology related to c/o no taste and inadequate energy intake Signs/Symptoms as evidenced by 22.1% unintended wt loss and 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 Also w/ moderate fat/muscle loss throughout body. Status Active Problem Recommendation Dietitian Recommendations/Changes Continue regular diet w/ consistency per SWEAT BOX ATTENDANT - magic cup w/ lunch and dinner Continue ensure plus high protein 4x/day w/ medpass for increased nutrition if consumed Continue jorge bid to help w/ skin healing Continue appetite stimulant to help encourage increased po intake Weight / BMI Weight Weight: 55.537 kg Body Mass Index (BMI) 22.4 ABG / Lab / Microbiology Data 12/28/22 05:17 12/30/22 07:20 D/C Instructions Discharge Diet: No restrictions Discharge Activity: Return to Normal Activity, May Shower and Use Walker Weight Bearing Status: Weight bearing as tolerated Call your doctor if you observe: Fever of 101 or Higher, Inability to urinate, Inability to have a bowel movement, Shortness of breath, Dizziness, Fainting spells, Swelling in the ankles, Chest pain and Uncontrolled pain Additional Instructions: 12/31/2022 Resident with respiratory distress, on AIRVO, transfer to [facility] ED for evaluation, possible admission to hospital. Please Follow Up With: Maddie Restrepo NP, [facility]OUTEMAN-C Meaningful Use Info Meaningful Use Diagnoses (Choose all that apply): None applicable Discharge Plan Admission Admit Date/Time: 12/27/22 18:01 Primary Reason for Your Visit: Debility. Attending Provider: Alden Law Chi Primary Care Provider: Ollie Colin Consulting Providers: Santana Quan Instructions Additional Instructions / Restrictions: 12/31/2022 Resident with respiratory distress, on AIRVO, transfer to [facility] ED for evaluation, possible admission to hospital. Discharge Orders/Prescriptions Prescriptions: No Action metoprolol succinate 25 mg tablet extended release 24 hr 25 mg PO DAILY hydroxychloroquine [Plaquenil] 200 mg tablet 300 mg PO DAILY bupropion HCl [Wellbutrin XL] 150 mg tablet extended release 24 hr 150 mg PO DAILY meloxicam 15 mg tablet 15 mg PO DAILY albuterol sulfate 2.5 mg /3 mL (0.083 %) Solution For Nebulization 2.5 mg inhalation Q2H PRN PRN (Reason: Dyspnea, wheezing) Qty: 0 0RF dexamethasone 4 mg Tablet 4 mg PO DAILY Qty: 0 0RF menthol-zinc oxide [Calmoseptine] 0.44-20.6 % Ointment 1 applic topical BID Qty: 0 0RF Protocol: *Topical Application Instructions APPLICATION INSTRUCTIONS: Apply to Coccyx Ensure Plus High Protein 0.08 gram-1.5 kcal/mL Liquid 120 ml PO 4X/DAY Qty: 0 0RF Jorge (with collagen) 7-7-1.5 gram Powder In Packet 1 packet PO BIDCM Qty: 0 0RF nystatin 100,000 unit/mL Suspension 500,000 unit PO 4X/DAY Qty: 0 0RF pantoprazole 40 mg Tablet,Delayed Release (Dr/Ec) 40 mg PO BID Qty: 1 0RF cefazolin 2 gram recon soln 2 g IV Q8H Rx Instructions: Start on 12/27/2022, continue through January 21, 2023 Referrals / Follow Up: Ollie Colin DO [Primary Care Provider] - Disposition Disposition (needs filled in before D/C Order can be placed): Acute Care Hospital [facility]
--- NOTE | 2023-01-08 09:15 | MDS.RN ---
Information for the mds was obtained from review of the clinical record, interview of resident, staff, and direct observation of resident's care.
== END 2022-12-31 07:45 | disposition short-term general hospital (02) | DRG 689 ==
PROVIDERS: Admitting Provider Family Medicine Geriatric Medicine; PCP Student in an Organized Health Care Education/Training Program; Visit Provider Family Medicine Geriatric Medicine
DX: N39.0 Urinary tract infection, site not specified (principal); G93.41 Metabolic encephalopathy; R78.81 Bacteremia; L03.115 Cellulitis of right lower limb; B37.0 Candidal stomatitis; M06.9 Rheumatoid arthritis, unspecified; K21.9 Gastro-esophageal reflux disease without esophagitis; E78.5 Hyperlipidemia, unspecified; M19.90 Unspecified osteoarthritis, unspecified site; I10 Essential (primary) hypertension; J45.909 Unspecified asthma, uncomplicated; B95.61 Methicillin susceptible Staphylococcus aureus infection as the cause of diseases classified elsewhere; Z87.891 Personal history of nicotine dependence; Z79.52 Long term (current) use of systemic steroids; Z79.899 Other long term (current) drug therapy; R06.03 Acute respiratory distress
CPT/HCPCS: 36415; 71045; 80053; 85025; 92523; 92526; 92610; 94640; 94660; 94762; 97110; 97162; 97166; 97530; 97802; J7050; A4216

== ENCOUNTER → 2022-12-28 | Outpatient (CLI) | payer MEDICARE, OTHER, SELFPAY ==
--- NOTE | 2022-12-28 06:55 | CT_ITS ---
EXAM: CT CHEST WITHOUT INTRAVENOUS CONTRAST CLINICAL INDICATION: ABNORMAL CHEST X-RAY TECHNIQUE: Helically acquired images were obtained of the chest without intravenous contrast. This CT exam was performed using one or more of the following dose reduction techniques: automated exposure control, adjustment of the mA and/or kV according to patient size, and/or use of iterative reconstruction technique. COMPARISON: No relevant prior studies available. FINDINGS: LUNGS AND PLEURAL SPACES: Bilateral interstitial and alveolar opacities with areas of interstitial septal thickening, crazy paving, and some peripheral fibrosis in the costophrenic angles. No mass. Small right pleural effusion. No pneumothorax. HEART: Unremarkable. Heart size is normal. No pericardial effusion. No significant coronary artery calcifications. MEDIASTINUM: Unremarkable. No mediastinal or hilar adenopathy. Esophagus is unremarkable. No hiatal hernia. THYROID: Unremarkable. No thyroid lesions. BONES/JOINTS: Unremarkable. No suspicious lytic or blastic abnormality. VASCULATURE: Unremarkable. Thoracic aorta is non-dilated. ABDOMEN: Small amount of ascites adjacent to the liver. CT/Chest without Contrast IMPRESSION: 1. Bilateral interstitial and alveolar opacities with areas of interstitial septal thickening, crazy paving, and some peripheral fibrosis in the costophrenic angles. Small right pleural effusion. Broad differential including acute interstitial pneumonia, drug induced pneumonitis, pulmonary alveolar proteinosis, atypical infections, cryptogenic organizing pneumonia. Recommend pulmonology follow-up. 2. Small amount of ascites adjacent to the liver. Electronically Signed: Haseeb Mckeon MD at 7:49 EDT ,
== END | disposition home or self-care (01) ==
PROVIDERS: PCP Student in an Organized Health Care Education/Training Program; Referring Provider Family Medicine Geriatric Medicine; Visit Provider Family Medicine Geriatric Medicine
DX: R93.89 Abnormal findings on diagnostic imaging of other specified body structures (principal)
CPT/HCPCS: 71250

== ENCOUNTER 2022-12-31 07:50 | Inpatient (IN) | payer MEDICARE, OTHER, SELFPAY ==
[2022-12-31] VITALS (17 sets, daily range): BP systolic 115–138; BP diastolic 62–86; PULSE 79–94; RESP 12–35; TEMP 36.1–36.7; O2SAT 86–100; BMI 25.0; BMI 22.4
--- NOTE | 2022-12-31 07:53 | EDS_ITS ---
HPI History of Present Illness Chief Complaint: Shortness of Breath [facility] Medical History (Updated 12/31/22 @ 10:[address] Jay Lerner, DO) Asthma Depression Former smoker Hyperlipemia Hypertension Kidney stones Rheumatoid arthritis Vitreous floaters of left eye Home Medications bupropion HCl 150 mg 24 hr tablet, extended release (Wellbutrin XL) 150 mg PO DAILY MOOD 06/21/21 [History Last Taken 12/27/22] hydroxychloroquine 200 mg tablet (Plaquenil) 300 mg PO DAILY RA 06/21/21 [History Last Taken 12/22/22] metoprolol succinate 25 mg tablet,extended release 24 hr 25 mg PO DAILY BP 06/21/21 [History Last Taken 12/27/22] meloxicam 15 mg tablet 15 mg PO DAILY RA 12/22/22 [History Last Taken 12/27/22] albuterol sulfate 2.5 mg/3 mL (0.083 %) solution for nebulization 2.5 mg (3 mL) inhalation Q2H PRN PRN Dyspnea, wheezing #0 mL 12/27/22 [Rx Last Taken 12/23/22] arginine 7 gram-glutam 7 gram-CaHMB 1.5 [id number]-bh-min oral pwd pkt (Jorge (with collagen)) 1 packet PO BIDCM WOUND HEALING #0 ea 12/27/22 [Rx Last Taken 12/27/22] cefazolin 2 gram intravenous solution 2 g IV Q8H ANTIBIOTICS 12/27/22 [Rx Last Taken 12/27/22 14:05] dexamethasone 4 mg tablet 4 mg PO DAILY INFLAMMATION #0 tabs 12/27/22 [Rx Last Taken Unknown] food supplemt, lactose-reduced 0.08 gram-1.5 kcal/mL oral liquid (Ensure Plus High Protein) 120 ml PO 4X/DAY SUPPLEMENT #0 mL 12/27/22 [Rx Last Taken Unknown] menthol 0.44 %-zinc oxide 20.6 % topical ointment (Calmoseptine) 1 applic topical BID SKIN IRRITA #0 grams 12/27/22 [Rx Last Taken 12/27/22] nystatin 100,000 unit/mL oral suspension 500,000 unit (5 mL) PO 4X/DAY THRUSH #0 mL 12/27/22 [Rx Last Taken 12/27/22] pantoprazole 40 mg tablet,delayed release 40 mg PO BID ACID REFLUX #1 TAB 12/27/22 [Rx Last Taken 12/27/22] Allergy/AdvReac Type Severity Reaction Status Date / Time prednisone AdvReac Intermediate HALLUCINATI Verified 12/22/22 11:23 ONS Surgical History H/O bilateral hip replacements Social History (Updated 12/27/22 @ 20:[address] Alden Law MD) household members: none and other details: Cat Smoking Status: Former smoker alcohol intake: never substance use type: does not use EXAM Physical Exam Const Vital Signs: 12/31/22 07:53 12/31/22 07:58 12/31/22 07:57 Temperature 97 F L 97 F L Temperature Source Temporal Temporal Pulse Rate 85 82 82 Respiratory Rate 28 H 28 H 28 H Respiratory Effort Respiratory Pattern Blood Pressure 138/75 H 138/75 H 138/75 H Blood Pressure Mean 96 96 96 Pulse Ox 86 87 87 Oxygen Delivery Method Non-Rebreather Non-Rebreather Non-Rebreather Oxygen Flow Rate (L/min) 15 15 15 Fraction of Inspired Oxygen (FIO2) 12/31/22 08:15 12/31/22 09:41 12/31/22 08:20 Temperature Temperature Source Pulse Rate 80 Respiratory Rate 33 H Respiratory Effort Short of Breath Labored Accessory Muscle Use Nasal Flaring Respiratory Pattern Tachypnea Tachypnea Blood Pressure Blood Pressure Mean Pulse Ox 100 Oxygen Delivery Method Bi-pap Oxygen Flow Rate (L/min) Fraction of Inspired Oxygen (FIO2) 80 70 12/31/22 09:20 12/31/22 09:20 Temperature 98 F Temperature Source Temporal Pulse Rate 81 81 Respiratory Rate 21 H 21 H Respiratory Effort Respiratory Pattern Blood Pressure 125/72 H 125/72 H Blood Pressure Mean 89 89 Pulse Ox 94 94 Oxygen Delivery Method Bi-pap Bi-pap Oxygen Flow Rate (L/min) Fraction of Inspired Oxygen (FIO2) 65 65 MDM MDM MDM Narrative Medical decision making narrative: HISTORY OF PRESENT ILLNESS: 77-year-old female here with shortness of breath. Was found to be hypoxic to 60%. Patient states she is got worsening shortness of breath and lower extremity edema the last several days. Denies any chest pain. The patient denies recent surgery in the last 4 weeks denies previous diagnosis of DVT or PE, hemoptysis, unilateral leg swelling or malignancy with treatment the last 6 months. No estrogen use noted. REVIEW OF SYSTEMS: Pertinent positives: Shortness of breath, lower extremity edema Pertinent negatives: Chest pain PHYSICAL EXAM: Nursing triage notes reviewed, Vital signs reviewed Constitutional: please see mdm HENT: MMM Eyes: Pupils equal round and reactive to light, Extraocular muscles intact Neck: No stridor, no JVD, full neck ROM Lungs: Diminished breath sounds, bilateral crackles, no obvious rales, increased work of breathing, conversational dyspnea, acute respiratory distress Heart: Regular rate and rhythm, No murmurs, No rubs and No gallops, 2+ distal pulses (radial, femoral, posterior tibial) in all extremities Abdomen: Soft, there is no tenderness, rigidity, rebound or guarding, no obvious peritoneal signs, no palpable pulsatile abdominal masses, no auscultated abdominal bruit : No CVAT Extremities: 2+ pitting edema bilateral lower extremities Neuro: No focal neurological deficits, cranial nerves II through XII intact, 5/5 strength in all extremities. Intact sensation to light touch in all extremities, 2+ reflexes bilateral patella tendons. Normal gait. No ataxia. Skin: No rash or lesions noted MEDICAL DECISION MAKING: Chief Complaint: Shortness of breath External records reviewed: Echocardiogram from 12/25/2022 shows ejection fraction of 60 IMPRESSION: 1. Bilateral interstitial and alveolar opacities with areas of interstitial septal thickening, crazy paving, and some peripheral fibrosis in the costophrenic angles. Small right pleural effusion. Broad differential including acute interstitial pneumonia, drug induced pneumonitis, pulmonary alveolar proteinosis, atypical infections, cryptogenic organizing pneumonia. Recommend pulmonology follow-up. 2. Small amount of ascites adjacent to the liver. Factors affecting care: History of asthma, GERD, hypertension, hyperlipidemia, rheumatoid arthritis Social determinants of health: Elderly History obtained from others: none Consults: Internal medicine ALL IMAGES (IF OBTAINED) HAVE BEEN PERSONALLY REVIEWED AND INTERPRETED BY MYSELF. MDM Narrative: Patient was initially hypoxic with increased work of breathing started immediately on BiPAP. Lung exam without obvious rales but noted crackles in bilateral bases. She had symmetric pulses in lower extremity edema I considered the following differential diagnosis: ACS, PE, CHF, pneumonia, worsening pulmonary fibrosis, Goals of care discussion was undertaken with the patient medially. She re iterated she will to be DNR CC. She does not want intubation or cardiopulmonary cessation. I obtained a broad lab and imaging work-up to further elucidate etiology patient complaints. CTA showed no evidence of PE but showed evidence of pulmonary edema. BNP was elevated and troponin was elevated. I do the patient's troponin elevation secondary to hypoxia, demand ischemia rather than acute plaque rupture or coronary artery occlusion. Patient EKG showed no evidence of STEMI. Patient had good kidney function. I gave 40 mg IV Lasix and admitted the patient to the intensive care unit under internal medicine physician. The patient and/or family, caregivers express understanding. The patient and/or family, caregivers agrees with the plan. Total critical care time today provided was at least 60 minutes. This excludes separately billable procedures. Critical care time (if documented) is secondary to the patient having high probability of clinically significant/life threatening deterioration in the patient's condition which required my urgent intervention. Shared decision making: I will have a discussion with the patient and or visitors regarding risk/benefits of further testing or admission. They will be made aware of of the risk/benefits inherent in this decision they will be given the opportunity to voice understanding. Lab Data Attestation: I reviewed the patient's lab results. Labs: Laboratory Results - last 24 hr 12/31/22 07:55 WBC 16.8 H RBC 3.31 L Hgb 12.2 Hct 37.0 MCV 111.8 H MCH 36.9 H MCHC 33.0 D RDW Std Deviation 61.4 H RDW Coeff of Karen 14.9 H Plt Count 160 MPV 10.9 Immature Gran % (Auto) 1.200 H Neut % (Auto) 79.3 H Lymph % (Auto) 8.7 L [place] % (Auto) 9.3 Eos % (Auto) 1.2 Baso % (Auto) 0.3 Absolute Neuts (auto) 13.3 H Absolute Lymphs (auto) 1.46 Nucleated RBC % 0 Differential Comment COMMENT Diff Path Review May foll Sodium 139 Potassium 3.8 Chloride 108 H Carbon Dioxide 27.0 Anion Gap 4 L BUN 14 Creatinine 0.32 L Estim Creat Clear Calc 38.44 Est GFR (MDRD) Af Amer 258 Est GFR (MDRD) Non-Af 213 BUN/Creatinine Ratio 43.6 H Glucose 72 L Calcium 8.3 L Troponin I High Sens 517 H* B-Natriuretic Peptide 218.2 H ABG Data ABG results: ABG 12/31/22 08:29 Specimen Type ARELY VBG pH 7.48 H VBG pO2 35 VBG HCO3 27 H VBG Total CO2 28 VBG O2 Sat (Calc) 73 H VBG Base Excess 3 POC Mix VBG pCO2 Pt Tmp 36.2 L O2 Delivery Device NRB Radiography Chest X-Ray - ED: Read by ED Physician Diagnostic Testing: Clinical Impression(s) from Imaging Studies Chest CTA 12/31/22 08:23 IMPRESSION: No evidence of pulmonary embolism. Diffuse increased interstitial markings with areas of confluence in tip with diffuse interstitial fibrosis with superimposed CHF. Small bilateral effusions right greater than left. Fatty infiltration of the liver with findings suggestive of cirrhosis. Perihepatic and perisplenic fluid. Electronically Signed: Abran Razo MD at 9:40 EDT , Chest X-Ray 12/31/22 08:25 IMPRESSION: Progressive increased markings with areas of confluence in both lungs worse in the right lower lobe with blunting of the right costophrenic angle. Findings are suggestive of a CHF superimposed on the chronic interstitial fibrosis. Electronically Signed: Abran Razo MD at 8:49 EDT , The patient's chest x-ray was personally read by myself shows evidence of bilateral pulmonary edema concerning for CHF Discharge Plan Dx/Rx/DC Orders Clinical Impression: Acute CHF, Acute hypoxemic respiratory failure, Acute non-ST elevation myocardial infarction (NSTEMI), Interstitial pulmonary fibrosis Disposition Disposition: Acute Care [facility]
--- NOTE | 2022-12-31 08:22 | EKG12_ITS ---
Test Reason : SOB Blood Pressure : / mmHG Vent. Rate : 083 BPM Atrial Rate : 083 BPM P-R Int : 160 ms QRS Dur : 096 ms QT Int : 406 ms P-R-T Axes : 045 004 101 degrees QTc Int : 477 ms Normal sinus rhythm Nonspecific ST and T wave abnormality Abnormal ECG Confirmed by VERÓNICA OLSON, ADE ([id number]), avid editor HINA CORDERO ([id number]) on 01/01/2023 11:44:49 AM Referred By: Confirmed By:ADE SANCHES MD
--- NOTE | 2022-12-31 08:23 | CT_ITS ---
STUDY: CTA CHEST REASON FOR EXAM: Female, 77 years old. hypoxia RADIATION DOSAGE (If Supplied By Facility): CTDIvol = ( 4.82 ) mGy, DLP = ( 184.03 ) mGycm TECHNIQUE: The examination was performed with the intravenous administration of IV 75mL Isovue-370. Post-processing of the angiographic images was performed, with multiplanar reformation and 3D reconstruction. Individualized dose optimization techniques were used for this CT. COMPARISON: Comparison is made with prior CT scan of the thorax without contrast dated December 28, 2022. FINDINGS: Normal enhancement of the main pulmonary artery and right and left pulmonary arteries. Normal enhancement of the bilateral peripheral pulmonary arteries. There is no demonstrated pulmonary embolism. There is atherosclerotic calcification of the aortic arch with tortuosity. There is no demonstrated aortic dissection. There are calcifications of the coronary arteries. There are visualized mediastinal lymph nodes, which are within normal size limits, and with normal morphology. Normal hilar regions. Normal visualized trachea and bronchi. The lungs are well expanded. Diffuse increased interstitial markings with areas of confluence worse in the lower honeycombing. This is in keeping with diffuse interstitial fibrosis with superimposed mild degree of CHF. This has progressed as compared to prior study. Small bilateral effusions slightly more prominent on the right side. Normal chest wall structures. There are degenerative changes of thoracic spine. Perihepatic and perisplenic fluid. Nodular appearance of the liver suggestive of possible cirrhotic changes. CT/CTA Chest W/WO Contrast IMPRESSION: No evidence of pulmonary embolism. Diffuse increased interstitial markings with areas of confluence in tip with diffuse interstitial fibrosis with superimposed CHF. Small bilateral effusions right greater than left. Fatty infiltration of the liver with findings suggestive of cirrhosis. Perihepatic and perisplenic fluid. Electronically Signed: Abran Razo MD at 9:40 EDT ,
--- NOTE | 2022-12-31 08:25 | RAD_ITS ---
STUDY: X-RAY CHEST REASON FOR EXAM: Female, 77 years old. Hypoxia TECHNIQUE: Single AP portable view of the chest. COMPARISON: Comparison is made with prior study dated December 27, 2022. FINDINGS: EKG electrodes are seen. A left-sided PICC line catheter is in situ with the tip in the right atrium. Since prior study, there has been progressive increased interstitial markings with areas of confluence worse in the right lower INVOLVING both lungs. This may represent CHF superimposed on chronic interstitial fibrosis. There is blunting of the right cardio phrenic angle. Normal size heart. Normal mediastinum and rojas. Normal visualized pulmonary arteries. There is atherosclerotic calcification of the aortic arch with tortuosity. Normal visualized thoracic spine. Normal visualized ribs, clavicles, and shoulders. There is no demonstrated abnormality of the visualized soft tissue structures of the upper abdomen. RAD/Chest 1 View (Portable) IMPRESSION: Progressive increased markings with areas of confluence in both lungs worse in the right lower lobe with blunting of the right costophrenic angle. Findings are suggestive of a CHF superimposed on the chronic interstitial fibrosis. Electronically Signed: Abran Razo MD at 8:49 EDT ,
[2022-12-31 08:31] LABS: Absolute Lymphocyte Count 1.46 X10^3/uL (0.83-4.51); Absolute Neutrophil Count 13.3 X10^3/uL (2.0-7.7); Basophil# 0.05 X10^3/uL; Basophil% 0.3 % (0-1); Eosinophils% 1.2 % (0-5); Hemoglobin 12.2 g/dL (12.0-15.0); Lymphocyte # 1.46 X10^3/ul (0.83-4.51); Lymphocyte % 8.7 % (19-41); Mean Corpuscular Hgb 36.9 pg (27.0-32.0); Mean Corpuscular Volume 111.8 fL (81-99); Mean Platelet Vol. 10.9 fl (6.2-12.0); Monocyte# 1.57 X10^3/uL; Monocyte% 9.3 % (0-10); NRBC Flagged by Analyzer 0 % (0-5); Neutrophil # 13.33 X10^3/uL (2.7-7.7); Neutrophil % 79.3 % (47-70); POSITIVE DIFFERENTIAL YES; Platelet Count 160 K/mm3 (150-450); RBC Distribution Width CV 14.9 % (11.6-14.6); RBC Distribution Width SD 61.4 fl (35.1-43.9); Red Blood Count 3.31 M/mm3 (4.2-5.4); White Blood Count 16.8 K/mm3 (4.4-11.0)
[2022-12-31 08:33] LABS: Differential Indicated SCAN CRITERIA MET
[2022-12-31 08:34] LABS: Blood Gas Specimen Type VEN; O2 Delivery Device NRB; VBG BASE EXCESS 3 mmol/L (-1.0-3.5); VBG Bicarbonate 27 mmol/L (22-26); VBG PO2 35 mmHg (25-40); VBG SO2 73 % (50-70); VBG TCO2 28 mmol/L (23-33); VBG pCO2 36.2 mmHg (41-51); VBG pH 7.48 (7.32-7.42)
[2022-12-31] MEDS: Acetaminophen/Codeine #3 Tablet 1 TABLET PO (08:35)
[2022-12-31 09:07] LABS: Anion Gap 4 (5-15); BUN 14 mg/dL (7-18); BUN/Creat Ratio 43.6 RATIO (10-20); Calcium,Total 8.3 mg/dL (8.5-10.1); Chloride 108 mmol/L (98-107); Creatinine, Serum 0.32 mg/dL (0.55-1.02); EST Glomerular Filtration Rate 213 mL/min (>60); Est Glom Filt Rate - Afr Amer 258 mL/min (>60); Estimated Creatinine Clearance 38.44 ml/min; Glucose 72 mg/dL (74-106); Potassium 3.8 mmol/L (3.5-5.1); Sodium Level 139 mmol/L (136-145); Troponin-I HS 517 pg/mL (3.0-54.0)
[2022-12-31 09:09] LABS: BNP,B-Type NATRIURETIC PEPTIDE 218.2 pg/mL (0-100)
--- NOTE | 2022-12-31 10:12 | NURSING ---
DR DAVIS FOR DR CROSS
[2022-12-31] MEDS: Furosemide 40 MG/4 ML Vial IV (10:15)
--- NOTE | 2022-12-31 10:17 | NURSING ---
PCU TERELETSKY HYPOXIA, NSTEMI
--- NOTE | 2022-12-31 10:30 | NURSING ---
DR RADFORD FOR DR ANN
--- NOTE | 2022-12-31 10:33 | ECHOL_ITS ---
Reason For Study: CHF Procedure This was a limited 2D transthoracic echocardiogram. Exam performed portable in ED. Left Ventricle Normal LV size. The estimated ejection fraction is 55-60 %. Right Ventricle Normal right ventricle. Normal systolic function. Atria Normal left atrium. Normal right atrium. Mitral Valve There is moderate mitral annular calcification. Trivial mitral valve insufficiency. Tricuspid Valve Normal tricuspid valve. Mild (1+) tricuspid valve insufficiency. Aortic Valve Moderate diffuse aortic valve calcification. No aortic valve insufficiency. Pulmonic Valve The pulmonic valve is not well visualized. Great Vessels Normal aortic root. Pericardium/Pleural No pericardial effusion. MMode/2D Measurements & Calculations LVIDd: 4.3 cm IVSd: 0.75 cm LA dimension: 3.1 cm LVIDs: 3.1 cm LVPWd: 1.0 cm FS: 28.0 % LVAd ap4: 22.5 cm2 SV(MOD-sp4): 37.7 ml SV(sp4-el): 40.2 ml LVLd ap4: 6.9 cm EDV(MOD-sp4): 59.7 ml EDV(sp4-el): 62.0 ml LVAs ap4: 11.9 cm2 LVLs ap4: 5.5 cm ESV(MOD-sp4): 22.0 ml ESV(sp4-el): 21.8 ml EF(MOD-sp4): 63.1 % EF(sp4-el): 64.8 % Doppler Measurements & Calculations TR max smita: 293.9 cm/sec TR max P.5 mmHg ECHO/Echo, Limited Study Interpretation Summary The estimated ejection fraction is 55-60 %. Normal LV syystolic function Mild TR No significant change from previous echo Ordering Physician: Tanner Farooq Referring Physician: Ollie Colin Performed By: Carlos Becerra RCS
[2022-12-31] MEDS: Aspirin 300 MG Suppository RC (10:56)
--- NOTE | 2022-12-31 12:35 | PCM.HP.STD ---
HPI - General General Date of Admission: 12/31/22 Date of Service: 12/31/22 Chief Complaint: Shortness of breath HPI Narrative LIYA BRITT, is a 77 F who presents to the emergency room at [facility] after being transferred from the TCU unit where she was undergoing inpatient rehab services, she had complaints of shortness of breath over the past couple of days, she underwent a work-up in TCU according to nursing and they were not able to find any reason for the shortness of breath so she was transferred to the ER for further testing. Work-up in the ER included a chest x-ray which showed bilateral infiltrates, she had a CTA of her chest which showed evidence of pulmonary fibrosis, no evidence of pulmonary embolism but evidence of vascular congestion. Patient's troponin was elevated, patient's beta natruretic peptide was also noted to be elevated, patient's white count was 16.8. EKG did not show any acute ischemic changes. Patient was felt to have acute hypoxic respiratory failure secondary to acute congestive heart failure on a backdrop of chronic lung disease from pulmonary fibrosis as a result of rheumatoid arthritis. She was also felt to have had a non-STEMI- patient stated that she did not want to be resuscitated-she stated she wanted to be a comfort care, this was also confirmed by her POA. Patient was given IV Lasix in the emergency room, she will be admitted to PCU, she is currently on BiPAP, I will start a Lasix drip and enzymes will be repeated. A limited echocardiogram was ordered to reassess LV function. [facility] Medical History Asthma Depression Former smoker Hyperlipemia Hypertension Kidney stones Rheumatoid arthritis Vitreous floaters of left eye Home Medications bupropion HCl 150 mg 24 hr tablet, extended release (Wellbutrin XL) 150 mg PO DAILY MOOD 06/21/21 [History Last Taken 12/31/22 05:05] hydroxychloroquine 200 mg tablet (Plaquenil) 300 mg PO DAILY RA 06/21/21 [History Last Taken 12/30/22 08:45] metoprolol succinate 25 mg tablet,extended release 24 hr 25 mg PO DAILY BP 06/21/21 [History Last Taken 12/30/22 05:00] meloxicam 15 mg tablet 15 mg PO DAILY RA 12/22/22 [History Last Taken 12/30/22 05:00] albuterol sulfate 2.5 mg/3 mL (0.083 %) solution for nebulization 2.5 mg (3 mL) inhalation Q2H PRN PRN Dyspnea, wheezing #0 mL 12/27/22 [Rx Last Taken 12/31/22 03:20] arginine 7 gram-glutam 7 gram-CaHMB 1.5 fftz-cfsfs-ry-min oral pwd pkt (Jorge (with collagen)) 1 packet PO BIDCM WOUND HEALING #0 ea 12/27/22 [Rx Last Taken 12/29/22 08:15] cefazolin 2 gram intravenous solution 2 g IV Q8H ANTIBIOTICS 12/27/22 [Rx Last Taken 12/31/22 01:00] dexamethasone 4 mg tablet 4 mg PO DAILY INFLAMMATION #0 tabs 12/27/22 [Rx Last Taken 12/31/22 08:45] food supplemt, lactose-reduced 0.08 gram-1.5 kcal/mL oral liquid (Ensure Plus High Protein) 120 ml PO 4X/DAY SUPPLEMENT #0 mL 12/27/22 [Rx Last Taken 12/30/22 19:55] menthol 0.44 %-zinc oxide 20.6 % topical ointment (Calmoseptine) 1 applic topical BID SKIN IRRITA #0 grams 12/27/22 [Rx Last Taken 12/30/22 17:05] nystatin 100,000 unit/mL oral suspension 500,000 unit (5 mL) PO 4X/DAY THRUSH #0 mL 12/27/22 [Rx Last Taken 12/30/22 23:15] pantoprazole 40 mg tablet,delayed release 40 mg PO BID ACID REFLUX #1 TAB 12/27/22 [Rx Last Taken 12/30/22 17:10] acetaminophen 500 mg tablet 1,000 mg PO Q6H PRN fever or pain 12/31/22 [History Last Taken 12/30/22 20:00] benzonatate 200 mg capsule 200 mg PO TID 12/31/22 [History Last Taken 12/30/22 23:10] codeine 10 mg-guaifenesin 100 mg/5 mL oral liquid (Guaifenesin AC) 5 ml PO Q4H PRN cough 12/31/22 [History Last Taken 12/30/22 23:20] enoxaparin 40 mg/0.4 mL subcutaneous syringe (Lovenox) 40 mg subcut DAILY 12/31/22 [History Last Taken 12/31/22 05:00] ipratropium 0.5 mg-albuterol 3 mg (2.5 mg base)/3 mL nebulization soln 3 ml inhalation Q6H 12/31/22 [History Last Taken 12/30/22 19:45] mirtazapine 7.5 mg tablet 7.5 mg PO QHS 12/31/22 [History Last Taken 12/30/22 23:15] sennosides 8.6 mg-docusate sodium 50 mg tablet 1 tab-cap PO BID 12/31/22 [History Last Taken 12/31/22 06:25] Allergy/AdvReac Type Severity Reaction Status Date / Time prednisone AdvReac Intermediate HALLUCINATI Verified 12/22/22 11:23 ONS Surgical History H/O bilateral hip replacements Social History (Updated 12/31/22 @ 12:29 by Shiela Desai) household members: none and other details: Cat housing: residential Smoking Status: Former smoker alcohol intake: never substance use type: does not use ROS ROS Narrative Review of systems was not able to be obtained from the patient due to the fact that she was on BiPAP and she has an underlying dementia Vital Signs Vital Signs Vital Signs: 12/31/22 07:53 12/31/22 07:58 12/31/22 07:57 Temperature 97 F L 97 F L Temperature Source Temporal Temporal Pulse Rate 85 82 82 Respiratory Rate 28 H 28 H 28 H Respiratory Effort Respiratory Pattern Blood Pressure 138/75 H 138/75 H 138/75 H Blood Pressure Mean 96 96 96 Pulse Ox 86 87 87 Oxygen Delivery Method Non-Rebreather Non-Rebreather Non-Rebreather Oxygen Flow Rate (L/min) 15 15 15 Fraction of Inspired Oxygen (FIO2) 12/31/22 08:15 12/31/22 09:41 12/31/22 08:20 Temperature Temperature Source Pulse Rate 80 Respiratory Rate 33 H Respiratory Effort Short of Breath Labored Accessory Muscle Use Nasal Flaring Respiratory Pattern Tachypnea Tachypnea Blood Pressure Blood Pressure Mean Pulse Ox 100 Oxygen Delivery Method Bi-pap Oxygen Flow Rate (L/min) Fraction of Inspired Oxygen (FIO2) 80 70 12/31/22 09:20 12/31/22 09:20 12/31/22 10:29 Temperature 98 F 98 F Temperature Source Temporal Temporal Pulse Rate 81 81 79 Respiratory Rate 21 H 21 H 24 H Respiratory Effort Respiratory Pattern Blood Pressure 125/72 H 125/72 H 115/86 H Blood Pressure Mean 89 89 95 Pulse Ox 94 94 94 Oxygen Delivery Method Bi-pap Bi-pap Bi-pap Oxygen Flow Rate (L/min) Fraction of Inspired Oxygen (FIO2) 65 65 12/31/22 10:30 12/31/22 11:06 Temperature 98 F Temperature Source Temporal Pulse Rate 79 80 Respiratory Rate 24 H 31 H Respiratory Effort Respiratory Pattern Tachypnea Blood Pressure 123/62 H Blood Pressure Mean 82 Pulse Ox 94 94 Oxygen Delivery Method Bi-pap Oxygen Flow Rate (L/min) Fraction of Inspired Oxygen (FIO2) 60 Weight Weight: 61.9 kg Body Mass Index (BMI) 25.0 Physical Exam Const alert Constitutional Narrative: Patient appears to be in moderate to severe respiratory distress with rapid shallow respirations, she is currently on BiPAP General Appearance: well kempt and well developed HEENT normocephalic, head/scalp atraumatic, hearing grossly normal bilaterally and moist oral mucous membranes Eyes PERRL, EOMs intact bilaterally and conjunctivae normal Neck supple, no JVD, thyroid normal and no carotid bruits General: trachea midline Resp Resp Narrative: Patient has retractions, she is using accessory muscles, she has rapid shallow respirations Auscultation: rales bilateral and diffuse; Negative for rhonchi or wheezes Cardio regular rate, regular rhythm, S1 normal heart sound, S2 normal heart sound, no murmurs, no rub and no gallops GI normal to inspection, nondistended, normoactive bowel sounds, soft to palpation, non-tender and non-distended Extremity no clubbing, cyanosis or edema Skin no rashes or lesions noted General Skin Exam: no breakdown Neuro CN's II-XII intact bilaterally, moves all extremities, no focal motor deficits and no sensory deficits noted Sensorium / Orientation: awake and alert Speech: speech normal Psych affect normal Results Lab / Micro Data 12/31/22 07:55 12/31/22 07:55 Labs: Laboratory Results - last 24 hr 12/31/22 07:55: WBC 16.8 H, RBC 3.31 L, Hgb 12.2, Hct 37.0, MCV 111.8 H, MCH 36.9 H, MCHC 33.0 D, RDW Std Deviation 61.4 H, RDW Coeff of Karen 14.9 H, Plt Count 160, MPV 10.9, Immature Gran % (Auto) 1.200 H, Neut % (Auto) 79.3 H, Lymph % (Auto) 8.7 L, Concho % (Auto) 9.3, Eos % (Auto) 1.2, Baso % (Auto) 0.3, Absolute Neuts (auto) 13.3 H, Absolute Lymphs (auto) 1.46, Nucleated RBC % 0, Differential Comment COMMENT, Diff Path Review October foll, Sodium 139, Potassium 3.8, Chloride 108 H, Carbon Dioxide 27.0, Anion Gap 4 L, BUN 14, Creatinine 0.32 L, Estim Creat Clear Calc 38.44, Est GFR (MDRD) Af Amer 258, Est GFR (MDRD) Non-Af 213, BUN/Creatinine Ratio 43.6 H, Glucose 72 L, Calcium 8.3 L, Troponin I High Sens 517 H*, B-Natriuretic Peptide 218.2 H Micro: Microbiology 12/31/22 08:35 Nasal Secretion SARS-CoV-2 & FLU Antigen (Rapid) - Final ABG Data ABG results: ABG 12/31/22 08:29 Specimen Type ARELY VBG pH 7.48 H VBG pO2 35 VBG HCO3 27 H VBG Total CO2 28 VBG O2 Sat (Calc) 73 H VBG Base Excess 3 POC Mix VBG pCO2 Pt Tmp 36.2 L O2 Delivery Device NRB Radiology Impression Chest CTA 12/31/22 08:23 IMPRESSION: No evidence of pulmonary embolism. Diffuse increased interstitial markings with areas of confluence in tip with diffuse interstitial fibrosis with superimposed CHF. Small bilateral effusions right greater than left. Fatty infiltration of the liver with findings suggestive of cirrhosis. Perihepatic and perisplenic fluid. Electronically Signed: Abran Razo MD at 9:40 EDT , Chest X-Ray 12/31/22 08:25 IMPRESSION: Progressive increased markings with areas of confluence in both lungs worse in the right lower lobe with blunting of the right costophrenic angle. Findings are suggestive of a CHF superimposed on the chronic interstitial fibrosis. Electronically Signed: Abran Razo MD at 8:49 EDT , Assessment & Plan Assessment/Plan (1) Interstitial pulmonary fibrosis: PLAN: Plan 1. Acute hypoxic respiratory failure secondary to acute CHF on a backdrop of chronic lung disease (pulmonary fibrosis) from rheumatoid arthritis-patient will be admitted to PCU, she is a comfort care and she is currently on BiPAP. I talked extensively with the patient and her POA today in person, patient is adamant about being a comfort care. Patient will be medicated for respiratory distress if necessary with morphine, I have placed her on a Lasix drip. Limited echocardiogram is pending at this time. #2 [id number]-gu this point, patient wants no aggressive therapy, I will repeat 1 more set of cardiac enzymes #3 MSSA bacteremia-patient is currently on Ancef, this will be continued #4 rheumatoid arthritis-complicates care, medical course, recovery and prognosis #5 history of cirrhosis-complicates care, medical course, recovery, and prognosis #6 chronic depression-patient is n.p.o. at this time because she is on BiPAP, her meds will be reinstituted when she is able to take oral medicines #7 acute severe protein and caloric malnutrition-right now patient is n.p.o., nutritional services will see the patient if she improves. Total clinical time spent by myself addressing patient's medical issues, reviewing all of her data, and collaborating with patient's care team: 75 minutes Charges/Coding Visit Charges Inpatient E&M: 75269 Init Hosp L3
[2022-12-31] MEDS: Furosemide 500 MG in Empty Viaflex 50 mL 1 EACH CONT INF (12:54)
[2022-12-31] MEDS: 0.9% Saline Lock 10 ML Syringe IV ×2 (12:54→13:45)
[2022-12-31 13:11] LABS: Troponin-I HS 541 pg/mL (3.0-54.0)
--- NOTE | 2022-12-31 13:35 | CPS ---
Patient resting quietly on BiPAP. Around 1335 the Patient woke with some panic, sat up, and began to struggle to breath with the BiPAP on. Patient wanted BiPAP removed. Daughter at bedside, BiPAP removed. Patient placed on Airvo, and breathing treatment. Airvo set to 60lpm, 34 degrees and 90% FiO2.After breathing treatment, NRB mask placed over Airvo. Sats dropped to 52% while transitioning to Airvo. RN updated, patient currently refusing BiPAP.
[2022-12-31] MEDS: Ipratropium/Albuterol Sulfate 3 ML AMPUL.NEB INHALATION ×2 (13:45→19:50)
[2022-12-31] MEDS: Morphine 2 MG/ML Syringe IV ×3 (13:45→21:19)
--- NOTE | 2022-12-31 14:33 | CHAPLAIN ---
Type of Pastoral Visit ___ Initial Visit _x__ Follow-up Visit ___ On-call Visit ___ General Patient Visit ___ Spiritual Assessment ___ Family Conference ___ Bereavement ___ Rapid Response ___ Code Blue ___ Other (describe below) Pastoral Care Referral From _x__ Patient _x__ Family _x__ Nurse ___ Physician ___ Independent Driver ___ Mathematics Instructor ___ Other (describe below) Sacrament/Intervention ___ Active listening ___ Anointing ___ Mandaeism ___ Bereavement ___ Communion ___ Cori exploration ___ ___ Life review _x__ Prayer ___ Reconciliation ___ Sacrament of Sick _x__ Supportive presence ___ Wedding ___ Other (describe below) Pastoral Comments patient has been seen and has now be moved from TCU to PCU after being in ED; pt now has a bi-pap and has difficult time to talk with it on; daughter is in the room and steps out to talk on phone to family members; daughter is tearful; sat at bedside and offered calm and presence while pt's daughter is out; gave prayer and calming words of reassurance; when daughter returned offered her support a well;
[2022-12-31] MEDS: Cefazolin 2 GM in 0.9% Normal Saline 100 ML IV ×2 (14:46→21:10)
--- NOTE | 2022-12-31 14:55 | WOUNDNOTE ---
Was asked by nursing to assess small open areas to buttocks. patient is resting with eyes closed with Bipap on. did not want to wake patient to assess buttocks at this time. Daughter present at bedside. Calmoseptine had already been applied. will assess in am. will most likely continue with the current treatment.
--- NOTE | 2022-12-31 16:15 | CPS ---
Family at bedside, did not disturb at this time
[2022-12-31] MEDS: Menthol/Lanolin/Calamine/Znox 113 GM Tube 1 APPLIC TOPICAL (21:11)
[2022-12-31] MEDS: Heparin Injection (Vial) 5,000 UNIT/ML VIAL 5000 UNIT SC (21:11)
[2023-01-01 01:55] VITALS: PULSE 91; RESP 20; O2SAT 94
[2023-01-01] MEDS: Ipratropium/Albuterol Sulfate 3 ML AMPUL.NEB INHALATION ×2 (01:55→07:03)
[2023-01-01 03:15] VITALS: BP 111/79; PULSE 89; RESP 18; TEMP 36.4; O2SAT 94
[2023-01-01 04:25] VITALS: PULSE 115; O2SAT 94
[2023-01-01] MEDS: Menthol/Lanolin/Calamine/Znox 113 GM Tube 1 APPLIC TOPICAL (05:08)
[2023-01-01] MEDS: 0.9% Saline Lock 10 ML Syringe IV (05:08)
[2023-01-01] MEDS: Cefazolin 2 GM in 0.9% Normal Saline 100 ML IV (05:08)
[2023-01-01 05:23] LABS: Absolute Lymphocyte Count 1.45 X10^3/uL (0.83-4.51); Basophil# 0.07 X10^3/uL; Basophil% 0.4 % (0-1); Eosinophil# 0.11 X10^3/uL; Eosinophils% 0.6 % (0-5); Hematocrit 38.5 % (37-47); Hemoglobin 12.8 g/dL (12.0-15.0); Lymphocyte # 1.45 X10^3/ul (0.83-4.51); Lymphocyte % 7.8 % (19-41); Mean Corp Hgb Conc 33.2 g/dL (32-36); Mean Corpuscular Volume 111.3 fL (81-99); Mean Platelet Vol. 10.9 fl (6.2-12.0); Monocyte# 1.66 X10^3/uL; NRBC Flagged by Analyzer 0 % (0-5); Neutrophil # 15.03 X10^3/uL (2.7-7.7); Neutrophil % 81.2 % (47-70); POSITIVE DIFFERENTIAL YES; Platelet Count 162 K/mm3 (150-450); RBC Distribution Width CV 15.2 % (11.6-14.6); RBC Distribution Width SD 61.2 fl (35.1-43.9); Red Blood Count 3.46 M/mm3 (4.2-5.4); White Blood Count 18.5 K/mm3 (4.4-11.0)
[2023-01-01 05:25] LABS: Differential Indicated SCAN CRITERIA MET
[2023-01-01 05:40] LABS: Bedside Glucose 72 mg/dL (74-106)
[2023-01-01 05:42] LABS: Anisocytosis 1+; Macrocytosis 2+; Polychromasia 1+
[2023-01-01 05:48] LABS: Anion Gap 7 (5-15); BUN 15 mg/dL (7-18); BUN/Creat Ratio 28.7 RATIO (10-20); Calcium,Total 8.1 mg/dL (8.5-10.1); Chloride 98 mmol/L (98-107); Creatinine, Serum 0.52 mg/dL (0.55-1.02); EST Glomerular Filtration Rate 121 mL/min (>60); Est Glom Filt Rate - Afr Amer 147 mL/min (>60); Estimated Creatinine Clearance 36.68 ml/min; Glucose 76 mg/dL (74-106); Potassium 3.7 mmol/L (3.5-5.1); Sodium Level 139 mmol/L (136-145)
[2023-01-01 07:03] VITALS: PULSE 84; PULSE 92; RESP 20; O2SAT 91; O2SAT 95
[2023-01-01 07:57] LABS: Pathologist Review Reviewed
[2023-01-01] MEDS: Morphine 2 MG/ML Syringe IV ×2 (08:21→11:55)
--- NOTE | 2023-01-01 08:47 | RAD_ITS ---
STUDY: X-RAY CHEST REASON FOR EXAM: Female, 77 years old. Hypoxia, chf TECHNIQUE: Single AP portable view of the chest. COMPARISON: Comparison is made with prior study dated December 31, 2022. FINDINGS: A left-sided PICC line catheter is seen with the tip in the right atrium. Persistent increased interstitial markings in both lungs worse on the right side. There is been essentially no change. Blunting of the right cusp right ankle. Normal size heart. Normal mediastinum and rojas. Normal visualized pulmonary arteries. There is atherosclerotic calcification of the aortic arch with tortuosity. There are diffuse degenerative changes of the visualized thoracic spine. Normal visualized ribs, clavicles, and shoulders. There is no demonstrated abnormality of the visualized soft tissue structures of the upper abdomen. RAD/Chest 1 View (Portable) IMPRESSION: Essentially stable examination. Electronically Signed: Abran Razo MD at 11:19 EDT ,
[2023-01-01 09:15] VITALS: BP 105/71; PULSE 84; RESP 24; TEMP 36.6; O2SAT 95
--- NOTE | 2023-01-01 09:30 | CASEMGMT ---
SW was informed that family would like to talk with Hospice. SW called Hospice with referral and also faxed information. Tamra Wiley ROOM SERVICE SERVER [place]GELES
[2023-01-01 09:54] VITALS: RESP 20; O2SAT 93
--- NOTE | 2023-01-01 10:27 | CASEMGMT ---
Juanjose from Hospice is at [facility] to talk with patient and family. Tamra Wiley PLASMA SPECIALIST ANGELES
--- NOTE | 2023-01-01 10:40 | NURSING ---
Hospice here talking with family they would like her to be inpatient Hospice
--- NOTE | 2023-01-01 11:13 | CASEMGMT ---
Addendum entered by Tamra Wiley 01/01/23 11:33: Hospice will be at [facility] to garbage pick up man patient around 11:45a. SW notified physician and RN. VESTA faxed d/c summary and DNR to Hospice. Tamra REYNOSO Original Note: Family signed up with [facility]. Patient was approved for the inpatient Hospice unit. SW notified physician. Hospice will garbage pick up man patient. Hospice to notify SW what time. SW notified Denia with TCU. Plan: d/c to [facility] inpatient Hospice unit. Tamra REYNOSO
--- NOTE | 2023-01-01 11:18 | PCM.DC.SUM ---
Providers Date of Admission: 12/31/22 Date of Discharge: 01/01/23 Primary Care Physician: Dr. Ollie Colin, DO Consultations 12/31/22 13:19 Consult: Onc/Wound/global clinical leader Routine Comment: Reason for Consult:: bilat buttocks/coccyx sores 01/01/23 09:11 Consult: Hospice / Palliative Care Routine Consulting Provider: [facility] Reason for Consult: lung disease EMERGENT Consult: No MD Notified: Yes Date Notified: 01/01/23 Time Notified: 09:11 Method of Notification: social work Reason For Visit: HYOXIC RESPIRATORY FAILURE, CHF, NON-STEMI Diagnosis Discharge Diagnosis (1) Interstitial pulmonary fibrosis: Status: Acute Code(s): J84.10 - Pulmonary fibrosis, unspecified Plan 1. Acute hypoxic respiratory failure secondary to acute CHF on a backdrop of chronic lung disease (pulmonary fibrosis) from rheumatoid arthritis-patient will be admitted to PCU, she is a comfort care and she is currently on BiPAP. I talked extensively with the patient and her POA today in person, patient is adamant about being a comfort care. Patient will be medicated for respiratory distress if necessary with morphine, I have placed her on a Lasix drip. Limited echocardiogram is pending at this time. #2 [id number] this point, patient wants no aggressive therapy, I will repeat 1 more set of cardiac enzymes #3 MSSA bacteremia-patient is currently on Ancef, this will be continued #4 rheumatoid arthritis-complicates care, medical course, recovery and prognosis #5 history of cirrhosis-complicates care, medical course, recovery, and prognosis #6 chronic depression-patient is n.p.o. at this time because she is on BiPAP, her meds will be reinstituted when she is able to take oral medicines #7 acute severe protein and caloric malnutrition-right now patient is n.p.o., nutritional services will see the patient if she improves. #8 possible pneumonia Total clinical time spent by myself addressing patient's medical issues, reviewing all of her data, and collaborating with patient's care team: 75 minutes Medications at Discharge Home Medications bupropion HCl 150 mg 24 hr tablet, extended release (Wellbutrin XL) 150 mg PO DAILY MOOD 06/21/21 hydroxychloroquine 200 mg tablet (Plaquenil) 300 mg PO DAILY RA 06/21/21 metoprolol succinate 25 mg tablet,extended release 24 hr 25 mg PO DAILY BP 06/21/21 meloxicam 15 mg tablet 15 mg PO DAILY RA 12/22/22 albuterol sulfate 2.5 mg/3 mL (0.083 %) solution for nebulization 2.5 mg (3 mL) inhalation Q2H PRN PRN Dyspnea, wheezing #0 mL 12/27/22 arginine 7 gram-glutam 7 gram-CaHMB 1.5 [id number]-uo-min oral pwd pkt (Jorge (with collagen)) 1 packet PO BIDCM WOUND HEALING #0 ea 12/27/22 cefazolin 2 gram intravenous solution 2 g IV Q8H ANTIBIOTICS 12/27/22 dexamethasone 4 mg tablet 4 mg PO DAILY INFLAMMATION #0 tabs 12/27/22 food supplemt, lactose-reduced 0.08 gram-1.5 kcal/mL oral liquid (Ensure Plus High Protein) 120 ml PO 4X/DAY SUPPLEMENT #0 mL 12/27/22 menthol 0.44 %-zinc oxide 20.6 % topical ointment (Calmoseptine) 1 applic topical BID SKIN IRRITA #0 grams 12/27/22 nystatin 100,000 unit/mL oral suspension 500,000 unit (5 mL) PO 4X/DAY THRUSH #0 mL 12/27/22 pantoprazole 40 mg tablet,delayed release 40 mg PO BID ACID REFLUX #1 TAB 12/27/22 acetaminophen 500 mg tablet 1,000 mg PO Q6H PRN fever or pain 12/31/22 benzonatate 200 mg capsule 200 mg PO TID 12/31/22 codeine 10 mg-guaifenesin 100 mg/5 mL oral liquid (Guaifenesin AC) 5 ml PO Q4H PRN cough 12/31/22 enoxaparin 40 mg/0.4 mL subcutaneous syringe (Lovenox) 40 mg subcut DAILY 12/31/22 ipratropium 0.5 mg-albuterol 3 mg (2.5 mg base)/3 mL nebulization soln 3 ml inhalation Q6H 12/31/22 mirtazapine 7.5 mg tablet 7.5 mg PO QHS 12/31/22 sennosides 8.6 mg-docusate sodium 50 mg tablet 1 tab-cap PO BID 12/31/22 Hospital Course Operations None Procedures 2-D Echocardiogram Summary of Care Provided Minutes Spent on Discharge: 31 Hospital Course: 77-year-old white female was seen in the emergency room at [facility] after being transferred [facility] where she was undergoing rehab services due to increasing shortness of breath. Work-up in the emergency room included a chest x-ray which showed bilateral infiltrates, patient required BiPAP to oxygenate, patient's troponin was noted to be elevated, EKG did not show an ischemic pattern. CTA of her chest was performed which showed no evidence of pulmonary embolism, there was noted to be diffused increased interstitial markings with areas of confluence in the tip with diffuse interstitial fibrosis with superimposed CHF. Small bilateral effusions right greater than left were noted. Patient requested comfort care status, she was admitted to PCU and the family agreed to initial treatment with Lasix drip to see if the patient improved, her status however did not improve over the next 24 hours, conversations were carried out with family members on 01/01/2023 and they finally decided to request a hospice consult and transfer of the patient to a hospice facility for inpatient hospice care. On 01/01/2023, patient was seen and examined: On examination she appeared frail and unwell, she had rapid respirations. Vital signs as documented. Skin warm and dry and without overt rashes. Neck without JVD, thyroid appears normal, trachea is midline, neck is supple. Lungs-inspiratory rales were noted over all lung sorto. Heart exam notable for regular rhythm, normal sounds and absence of murmurs, rubs or gallops. Abdomen unremarkable and without evidence of organomegaly, masses, or abdominal aortic enlargement, bowel sounds are present in all 4 quadrants, no abdominal tenderness was noted. Extremities nonedematous, no cyanosis was noted, no clubbing was noted. Neuro: Cranial nerves II through XII are grossly intact Psych: Patient is somnolent, she responds to painful stimuli but does not carry on a conversation On 12/22/2022, patient was seen and examined and was stable at the time she was transferred to the hospice inpatient facility-she was in overall poor condition. Weight / BMI Weight Weight: 55.4 kg Body Mass Index (BMI) 22.4 ABG / Lab / Microbiology Data 01/01/23 05:17 01/01/23 05:17 Laboratory: Laboratory Results - last 24 hr 12/31/22 07:55: Diff Path Review Reviewed 12/31/22 12:41: Troponin I High Sens 541 H* 01/01/23 05:17: WBC 18.5 H, RBC 3.46 L, Hgb 12.8, Hct 38.5, MCV 111.3 H, MCH 37.0 H, MCHC 33.2, RDW Std Deviation 61.2 H, RDW Coeff of Karen 15.2 H, Plt Count 162, MPV 10.9, Immature Gran % (Auto) 1.000 H, Neut % (Auto) 81.2 H, Lymph % (Auto) 7.8 L, Fisher % (Auto) 9.0, Eos % (Auto) 0.6, Baso % (Auto) 0.4, Absolute Neuts (auto) 15.0 H, Absolute Lymphs (auto) 1.45, Nucleated RBC % 0, Diff Path Review May foll, Polychromasia 1+, Anisocytosis 1+, Macrocytosis 2+, Sodium 139, Potassium 3.7, Chloride 98, Carbon Dioxide 34.0 H, Anion Gap 7, BUN 15, Creatinine 0.52 L, Estim Creat Clear Calc 36.68, Est GFR (MDRD) Af Amer 147, Est GFR (MDRD) Non-Af 121, BUN/Creatinine Ratio 28.7 H, Glucose 76, Calcium 8.1 L 01/01/23 05:20: POC Glucose 72 L Microbiology: Microbiology 12/31/22 08:35 Nasal Secretion SARS-CoV-2 & FLU Antigen (Rapid) - Final Radiography Diagnostic Testing: Radiology Impression Echocardiogram 12/31/22 10:33 Interpretation Summary The estimated ejection fraction is 55-60 %. Normal LV syystolic function Mild TR No significant change from previous echo Ordering Physician: Tanner Farooq Referring Physician: Ollie Colin Performed By: Carlos Becerra RCS Meaningful Use Info Meaningful Use Diagnoses (Choose all that apply): CHF CHF MICHAEL/ARB ordered at discharge?: No Reason MICHAEL/ARB not ordered?: Allergy (Patient was hospice when she left the hospital) Documented LVEF (%): 55 Discharge Plan Admission Admit Date/Time: 12/31/22 10:20 Attending Provider: Tanner Farooq Primary Care Provider: Ollie Colin Consulting Providers: Usama Stone; Zakia Marmolejo; Shanelle Patel; Ramona Echevarria [employer]POSITION [employer]ONE APPLICATOR Discharge Orders/Prescriptions Prescriptions: No Action metoprolol succinate 25 mg tablet extended release 24 hr 25 mg PO DAILY hydroxychloroquine [Plaquenil] 200 mg tablet 300 mg PO DAILY bupropion HCl [Wellbutrin XL] 150 mg tablet extended release 24 hr 150 mg PO DAILY ipratropium-albuterol 0.5 mg-3 mg(2.5 mg base)/3 mL solution for nebulization 3 ml inhalation Q6H acetaminophen 500 mg tablet 1,000 mg PO Q6H PRN (Reason: fever or pain) mirtazapine 7.5 mg tablet 7.5 mg PO QHS enoxaparin [Lovenox] 40 mg/0.4 mL syringe 40 mg subcut DAILY benzonatate 200 mg capsule 200 mg PO TID sennosides-docusate sodium 8.6-50 mg tablet 1 tab-cap PO BID codeine-guaifenesin [Guaifenesin AC] 10-100 mg/5 mL liquid 5 ml PO Q4H PRN (Reason: cough) meloxicam 15 mg tablet 15 mg PO DAILY albuterol sulfate 2.5 mg /3 mL (0.083 %) Solution For Nebulization 2.5 mg inhalation Q2H PRN PRN (Reason: Dyspnea, wheezing) Qty: 0 0RF dexamethasone 4 mg Tablet 4 mg PO DAILY Qty: 0 0RF menthol-zinc oxide [Calmoseptine] 0.44-20.6 % Ointment 1 applic topical BID Qty: 0 0RF Protocol: *Topical Application Instructions APPLICATION INSTRUCTIONS: Apply to Coccyx Ensure Plus High Protein 0.08 gram-1.5 kcal/mL Liquid 120 ml PO 4X/DAY Qty: 0 0RF Jorge (with collagen) 7-7-1.5 gram Powder In Packet 1 packet PO BIDCM Qty: 0 0RF nystatin 100,000 unit/mL Suspension 500,000 unit PO 4X/DAY Qty: 0 0RF pantoprazole 40 mg Tablet,Delayed Release (Dr/Ec) 40 mg PO BID Qty: 1 0RF cefazolin 2 gram recon soln 2 g IV Q8H Rx Instructions: Start on 12/27/2022, continue through January 21, 2023 Referrals / Follow Up: Ollie Colin DO [Primary Care Provider] - Disposition Disposition (needs filled in before D/C Order can be placed): Hospice in Medical Facility Charges/Coding Visit Charges Inpatient E&M: 83504 Disch Hosp >30min
--- NOTE | 2023-01-01 11:46 | NURSING ---
report called to hospice for transfer to inpatient unit, family @ bedside
--- NOTE | 2023-01-01 12:04 | NURSING ---
[facility] here for transport to inpatient unit, family present
[2023-01-02 10:07] LABS: Pathologist Review Reviewed
== END 2023-01-01 12:09 | disposition hospice, inpatient (51) | DRG 189 ==
LOC: ED 10:17 → PCU 10:51
PROVIDERS: Admitting Provider Internal Medicine; Emergency Provider Emergency Medicine; PCP Student in an Organized Health Care Education/Training Program; Visit Provider Internal Medicine
DX: J96.01 Acute respiratory failure with hypoxia (principal); I50.31 Acute diastolic (congestive) heart failure; E43 Unspecified severe protein-calorie malnutrition; I24.8 Other forms of acute ischemic heart disease; R78.81 Bacteremia; J84.10 Pulmonary fibrosis, unspecified; F03.90 Unspecified dementia, unspecified severity, without behavioral disturbance, psychotic disturbance, mood disturbance, and anxiety; I11.0 Hypertensive heart disease with heart failure; I50.9 Heart failure, unspecified; M05.10 Rheumatoid lung disease with rheumatoid arthritis of unspecified site; E78.5 Hyperlipidemia, unspecified; B95.61 Methicillin susceptible Staphylococcus aureus infection as the cause of diseases classified elsewhere; Z66 Do not resuscitate; Z68.25 Body mass index [BMI] 25.0-25.9, adult; Z79.1 Long term (current) use of non-steroidal anti-inflammatories (NSAID); Z79.899 Other long term (current) drug therapy; Z87.891 Personal history of nicotine dependence
CPT/HCPCS: 36415; 36592; 71045; 71250; 71275; 80048; 82803; 82962; 83880; 84484; 85025; 87428; 93005; 93308; 94002; 94640; 94660; 94762; 99252; 99284; J7050; Q9967; A4216; G0463; J1940